=== PATIENT | male | born 2000 | race Caucasian/White ===

== ENCOUNTER 2020-07-13 14:11 | Inpatient (IN) | payer MEDICARE, MEDICAID, SELFPAY ==
[2020-07-13] VITALS (7 sets, daily range): BP systolic 93–140; BP diastolic 65–90; PULSE 82–111; RESP 18–39; TEMP 35.6–36.2; O2SAT 97–100; BMI 26.9
--- NOTE | ~2020-07-13 | XR_ITS ---
EXAMINATION: XR forearm RT 2V INDICATION: Right forearm pain TECHNIQUE: Two views of the right forearm are obtained. COMPARISON: None available FINDINGS: There is no fracture, dislocation, or subluxation. The bones, soft tissues, and joint space s are normal. IMPRESSION: 1. No acute osseous abnormality. Reviewed, dictated and finalized at location A. ER AND BAKER
--- NOTE | ~2020-07-13 | XR_ITS ---
EXAMINATION: XR chest 1V portable INDICATION: Sepsis, leukocytosis TECHNIQUE: Portable AP chest at 2124 hours COMPARISON: None available FINDINGS: The lung volumes are low. There are minimal opacities of the lung bases. The cardiomediasti nal silhouette is normal for technique. The visualized osseous structures are unremarkable. IMPRESSION: 1. Minimal opacities of the lung bases, consistent with atelectasis versus pneumonia. Reviewed, dictated and finalized at location A. ULTANT TECHNOLOGY IMPRESSION: 1. Minimal opacities of the lung bases, consistent with atelectasis versus pneu monia.
--- NOTE | ~2020-07-13 | US_ITS ---
EXAMINATION: US renal BI DATE: 07/15/2020 11:26 INDICATION: Acute kidney injury. TECHNIQUE: Multiple ultrasound grayscale images of the kidneys were obtained. COMPARISON: None. FINDINGS: The right kidney measures 12.9 x 5.9 x 5.0 cm. The left kidney measures 12.2 x 6.0 x 5.6 cm. The kidn eys demonstrate normal parenchymal echogenicity. There is no hydronephrosis. The bladder is decompres sed by a Ray catheter. There is a left pleural effusion. IMPRESSION: 1. Normal kidneys. No hydronephrosis. 2. Left pleural effusion. Reviewed, dictated and finalized at location B. INSTRUCTOR
--- NOTE | ~2020-07-13 | CT_ITS ---
EXAMINATION: CT brain wo con DATE: 07/13/2020 15:17 INDICATION: Altered mental status. TECHNIQUE: Computed tomography (CT) of the head was performed without intravenous contrast. The mA wa s adjusted according to patient size. Iterative reconstruction technique was employed. The dose-lengt h product was 1437.67 mGy-cm. COMPARISON: None FINDINGS: There is no intracranial hemorrhage, acute infarction, or abnormal intracranial mass lesion . The ventricles are normal in size. There is mild mucosal thickening in the paranasal sinuses. The o rbits are normal. The mastoid air cells are normal. IMPRESSION: 1. Normal brain. Reviewed, dictated and finalized at location B. CIRCUIT WORKER IMPRESSION: 1. Normal brain.
--- NOTE | ~2020-07-13 | XR_ITS ---
EXAMINATION: XR wrist RT min 3V INDICATION: Right wrist pain TECHNIQUE: Four views of the right wrist are obtained. COMPARISON: None available FINDINGS: Bone alignment is normal. There is a questionable osseous fragment which projects dorsal to the lunate on the lateral view. Mild wrist soft tissue swelling is noted. IMPRESSION: 1. Possible dorsal fracture of the wrist. Correlate for tenderness at this site and consider further evaluation with CT if present. Reviewed, dictated and finalized at location A. AGING INSPECTOR
--- NOTE | ~2020-07-13 | XR_ITS ---
EXAMINATION: XR chest 1V portable DATE: 07/17/2020 06:12 INDICATION: Pulmonary edema TECHNIQUE: frontal view of the chest was obtained. COMPARISON: Chest radiograph dated 07/15/2020 FINDINGS: Interval decrease in the prior increased interstitial pattern consistent with improving pulmonary symone ma. There a few residual scattered bilateral subtle patchy airspace opacities. No pleural effusion or pneumothorax. Borderline heart size accounting for AP technique. IMPRESSION: 1. Improvement in prior pulmonary edema. 2. A few residual subtle patchy bilateral airspace opacities which are more suspicious for pneumonia. Reviewed, dictated and finalized at location A. EMATICAL ENGINEERING TECHNICIAN IMPRESSION: 1. Improvement in prior pulmonary edema. 2. A few residual subtle patchy bilateral airspace opacities which are more joann picious for pneumonia.
--- NOTE | ~2020-07-13 | XR_ITS ---
EXAMINATION: XR chest 1V portable INDICATION: Hypoxia TECHNIQUE: Portable AP chest at 2153 hours COMPARISON: None available FINDINGS: Diffuse patchy bilateral airspace opacities have developed. The heart size is upper limits of normal for technique. No pleural effusion or pneumothorax is identified. IMPRESSION: 1. Diffuse patchy bilateral airspace opacities, consistent with pneumonia and/or pulmonary edema or l ess likely atelectasis. Reviewed, dictated and finalized at location A. Y PULLER IMPRESSION: 1. Diffuse patchy bilateral airspace opacities, consistent with pneumonia and/o r pulmonary edema or less likely atelectasis.
--- NOTE | 2020-07-13 14:50 | ECG_ITS ---
Measurements Intervals [place] Rate: 109 P: 4 ID: [id number] QRS: -20 QRSD: 113 T: 29 QT: 328 QTc: 442 Interpretive Statements SINUS TACHYCARDIA MINIMAL Q WAVES- LAT/HIGH LAT LEADS NONSPECIFIC ST ELEVATION IN ANTEROLAT/INF LEADS BASELINE ARTIFACT- I, II, III, V3, V5 ABNORMAL ECG Electronically Signed On 07-13-2020 15:11:52 JIG BORE OPERATOR by Gualberto Gonzalez D.O.
[2020-07-13 15:06] LABS: Hematocrit 48.9 % (42.0-52.0); Mean Corpuscular HGB Conc 32.7 g/dl (32-36); Mean Corpuscular Hemoglobin 28.7 pg (26-34); Mean Corpuscular Volume 87.8 fl (80-100); Platelet Count Result 352 k/mm3 (150-375); Red Blood Count 5.57 M/mm3 (4.6-6.20); Red Cell Distribution Width 13.1 % (11.5-14.5); White Blood Count 34.1 K/mm3 (4.5-10.0)
[2020-07-13 15:20] LABS: Acetaminophen < 10 ug/mL (10-30); Ethanol < 10 mg/dL (<10); Salicylate < 1.0 mg/dL (2-20)
--- NOTE | 2020-07-13 15:35 | PC.NURSE ---
Pt attempted to provide urine sample, unable to at this time
[2020-07-13 15:37] LABS: Band Neutrophils Percent 3 % (0-6); Monocytes Absolute Manual 3.41 K/mm3 (0.1-0.90); Monocytes Percent Manual 10 % (3-9); Neutrophils Absolute Manual 28.98 K/mm3 (1.3-6.7); Neutrophils Percent Manual 82 % (46-73); Platelet Estimate Adequate (Adequate); Total Cells Counted 100
[2020-07-13 15:39] LABS: Potassium 6.6 mmol/L (3.4-5.0)
[2020-07-13 15:40] LABS: Albumin Level 4.5 g/dL (3.5-5.1); Alkaline Phosphatase 120 U/L (38-126); Anion Gap 15 mmol/L (8-16); Bilirubin,Total 0.4 mg/dL (0.2-1.3); Blood Urea Nitrogen 21 mg/dL (9-20); Calcium 8.2 mg/dL (8.4-10.2); Carbon Dioxide 20 mmol/L (22-30); Chloride 100 mmol/L (98-107); Estimated CRCL calculation 51 ml/min; Estimated Glomerular Filt Rate 40; Glucose 244 mg/dL (75-110); Sodium 135 mmol/L (137-145)
[2020-07-13] MEDS: ONDANSETRON INJ 4 MG/2 ML VIAL IV PUSH (15:49)
[2020-07-13] MEDS: SODIUM CHLORIDE 0.9% IV 1,000 ML 999 ML IV CONT ×3 (15:49→17:29)
[2020-07-13 16:01] LABS: Glucose Point of Care 199 (65-105)
[2020-07-13 16:04] LABS: Alanine Aminotransferase 845 U/L (4-50); Aspartate Amino Transferase 995 U/L (17-59)
[2020-07-13 16:16] LABS: Creatine Kinase > 16000 U/L (55-170)
[2020-07-13] MEDS: CALCIUM GLUCONATE 1,000 MG/10 ML VIAL 1000 MG IV PUSH (16:35)
[2020-07-13] MEDS: INSULIN HUMAN REGULAR (*BKC) 100 UNITS/ML IV PUSH (16:36)
[2020-07-13] MEDS: FUROSEMIDE INJ 40 MG/4 ML VIAL 20 MG IV PUSH (16:36)
[2020-07-13] MEDS: DEXTROSE 50% 25 GM/50 ML SYRINGE IV PUSH (16:36)
--- NOTE | 2020-07-13 16:51 | PC.NURSE ---
Pt still unable to give urine sample at this time
--- NOTE | 2020-07-13 17:27 | ED.OVERDOSE ---
HPI - Overdose General Chief Complaint: Overdose Stated Complaint: possible OD Time Seen by Provider: 07/13/20 14:32 Source: patient, family and EMS Mode of arrival: EMS Limitations: altered mental status and clinical condition History of Present Illness HPI Narrative: 19-year-old male arrives per EMS Most of the history is obtained from his mom She says that he recently got his own place They could not get a hold of him this morning and went over there and found him on the floor EMS was summoned and the patient was said to have become more alert after administration of Narcan Patient variously states that he was drinking or did bars or did cocaine and fentanyl Apparently there is a significant history of alcohol use and drugs of abuse The patient complains of whole body pain and also notably says that he is having trouble hearing He has not been vomiting or having diarrhea, he does not have a cough or shortness of breath, and none of his weakness is focal MD complaint: accidental overdose Onset (ago): hour(s) Intent: other (Recreational) Related Data Allergies Allergy/AdvReac Type Severity Reaction Status Date / Time No Known Allergies Allergy Unverified 03/25/17 03:44 Review of Systems Review of Systems: ROS unobtainable: Yes unobtainable due to medical condition and unobtainable due to mental status Respiratory: Respiratory: Denies cough and Denies dyspnea Gastrointestinal: Gastrointestinal: Denies vomiting Musculoskeletal: Musculoskeletal: Reports myalgias and Reports muscle cramps Integumentary/Breasts: Skin/Breast: Reports rash Neurologic: Reports confusion and Reports weakness PMFSH Social History Social History Gender identity (if verbalized by the patient): Male Exam Const: General: well developed, awake and confusion Nutritional Appearance: well nourished HENMT: Head: normal to inspection, normocephalic and atraumatic Ears: external ears normal General nose exam: No nasal discharge present and no epistaxis Face and sinus: face symmetric Mouth: Yes dry mucous membranes Eyes: Conjunctivae: conjunctivae normal Sclera: sclerae normal EOM: EOMs intact bilaterally Neck: Neck: normal visual inspection, supple and no JVD Chest: Chest palpation & inspection: deferred Resp: Effort & Inspection: normal respiratory effort Auscultation: clear to auscultation bilaterally, no rales, no rhonchi, no wheezes and other (BS =) Cardio: Rate: regular rate and tachycardic Rhythm: regular rhythm Heart sounds: no gallops and no murmurs GI: Inspection: normal to inspection and non-distended GI Palp: Yes Soft to palpation and No Tenderness to palpation present (GI) : General: Yes no CVA tenderness Back/Spine/Pelvis: Back: no CVA tenderness Thoracic/Lumbar Spine: thoracic and lumbar spine normal to inspection Skin: General skin exam: normal color and no rashes or lesions noted Other: There are areas of superficial abrasions that look like they could almost be carpet pizano on both of his hands his anterior chest and his knees Neuro: General: moves all extremities and no focal motor deficits Cranial nerves: Yes facial symmetry Speech: normal speech Other: Possibly, decreased hearing acuity Extrem: General: full ROM Other: No edema, no deformities Generalized muscular tenderness both arms both legs Pedal pulses and wrist pulses are intact and normal Psych: Affect: normal affect Course Course Emergency Course: Treatment was initiated for hyperkalemia [place] that this would possibly be from rhabdo was borne out by very high total CK He was aggressively hydrated [place] to be unlikely that there was any infectious basis to this presentation, but he did receive an empiric dose of ceftriaxone Vital Signs Vital signs: Vital Signs Temperature 36.2 C L 07/13/20 14:14 Pulse Rate 111 H 07/13/20 14:14 Respiratory Rate 39 H 07/13/20 14:14 Blood Pressure 93/65 L 07/13/20 14:14
[2020-07-13 17:53] LABS: Hepatitis B Surface Antigen Negative (Negative)
[2020-07-13 17:59] LABS: HAV RESULT Negative (Negative); Hepatitis B Core IgM Result Negative (Negative)
[2020-07-13 18:11] LABS: Hepatitis C Virus Antibody Negative (Negative)
[2020-07-13 18:15] LABS: Lactic Acid Reflex 4.2 mmol/L (0.7-2.1)
[2020-07-13 18:25] LABS: Add Urine Microscopic? YES; Amorphous Sediment Urine Few; Appearance Urine Cloudy (Clear); Bacteria Urine Trace /hpf; Bilirubin Urine Negative (Negative); Blood Urine 3+ (Negative); Color Urine Yellow (Yellow); Glucose Urine UA 1+ mg/dL (Negative); Ketones Urine Negative (Negative); Leukocyte Esterase Ur Negative LEU/UL (Negative); Mucus Urine Few /lpf; Nitrate Urine Negative (Negative); Protein Urine 2+ mg/dL (Negative); RBC Urine 0-2 /hpf (0-2); Specific Grav Ur 1.016 (1.001-1.035); Squamous Epithelial Cell Urine Occasional /hpf (Few); Urobilinogen Urine Negative mg/dL (<2.0)
[2020-07-13 18:29] LABS: Anion Gap 6 mmol/L (8-16); Blood Urea Nitrogen 18 mg/dL (9-20); Calcium 6.3 mg/dL (8.4-10.2); Carbon Dioxide 21 mmol/L (22-30); Chloride 111 mmol/L (98-107); Estimated CRCL calculation 75 ml/min; Estimated Glomerular Filt Rate > 60; Glucose 150 mg/dL (75-110); Potassium 3.9 mmol/L (3.4-5.0); Sodium 138 mmol/L (137-145)
[2020-07-13 18:30] LABS: Amphetamine Screen Urine Negative (Negative); Barbiturate Screen Urine Negative (Negative); Benzodiazepines Screen Urine Negative (Negative); Cannabinoid Screen Urine Positive (Negative); Cocaine Screen Urine Negative (Negative); Methadone Screen Urine Negative (Negative); Opiate Screen Urine Negative (Negative); Phencyclidine Screen Urine Negative (Negative)
[2020-07-13 18:48] LABS: Creatine Kinase > 16000 U/L (55-170)
[2020-07-13 19:53] LABS: Lactic Acid Reflex 3.6 mmol/L (0.7-2.1)
[2020-07-13 20:22] LABS: Anion Gap 8 mmol/L (8-16); Blood Urea Nitrogen 22 mg/dL (9-20); Calcium 7.9 mg/dL (8.4-10.2); Carbon Dioxide 22 mmol/L (22-30); Chloride 106 mmol/L (98-107); Estimated CRCL calculation 59 ml/min; Estimated Glomerular Filt Rate 48; Glucose 148 mg/dL (75-110); Potassium 5.6 mmol/L (3.4-5.0); Sodium 136 mmol/L (137-145)
--- NOTE | 2020-07-13 20:26 | PM.IMHP ---
H&P: HPI History of Present Illness Date/Time: 07/13/20 20:26 Chief complaint: overdose, rhabdomyolysis, hyperkalemia Narrative: This is a 19 year old male with known ADHD as well as auditory disorder who presented to the hospital via EMS after his parents found him unresponsive on the floor. Apparently they could not get a hold of him today and went over to his apartment and could see him on the floor through a window. A 'random girl' who was at his place opened the door for them. The patient became more awake and alert after EMS administered Narcan to him. His parents tell me that he has a previous history of a similar episode when he took Xanax and drank alcohol last year. The patient tells me that he has right forearm pain but denies any fevers, cough, sore throat, headache, chest pain, shortness of breath, abdominal pain, diarrhea or rectal bleeding. He has been nauseated and vomiting in the ER tonight. He admitted to ER provider that he was drinking alcohol and did bars , cocaine, and fentanyl. On my encounter with the patient he simply tells me that he can't remember anything that happened to him. He currently denies any focal neurological deficits. He was evaluated in the ER tonight and routine labs demonstrated an elevated WBC of 34,100, acute renal failure w/ a creatinine of 1.8, hyperkalemia with a serum potassium of 5.6, elevated LFTs, elevated lactic acid of 3.6, and CK level >16,000. He was treated in the ER with 3 liters IV bolus of NS, IV ceftriaxone, antiemetics and startedon NS at 250 cc/hr. The patient does appear intoxicated and is clearly encephalopathic and is having a hard time answering the most basic questions. Review of Systems Review of Systems: All systems reviewed & are unremarkable except as noted in HPI and below PMFSH Past Medical History Medical History Acquired auditory processing disorder ADHD Family History Family History Other Unknown family medical history Social History Social History Smoking packs per day: 1 Smoking cigarettes per day: 20.0 Years smoked: 4 Smoking pack-years: 4.00 Smoking status: Current every day smoker Tobacco type: cigarettes Gender identity (if verbalized by the patient): Male Comments past surgical history is reviewed and noncontributory Meds Home Medications and Allergies Home Medications Medication Instructions Recorded Confirmed Type No Home Medications 07/13/20 07/13/20 History Allergies Allergy/AdvReac Type Severity Reaction Status Date / Time No Known Allergies Allergy Unverified 07/13/20 18:50 Vital Signs Vital Signs - 24 hr 07/13/20 14:14 07/13/20 15:54 07/13/20 17:50 Temperature 36.2 C L Pulse Rate 111 H 109 H Respiratory Rate 39 H 18 20 Blood Pressure 93/65 L 116/78 Pulse Oximetry 100 97 07/13/20 19:45 Temperature Pulse Rate 92 Respiratory Rate 21 H Blood Pressure 115/82 Pulse Oximetry Exam Const: General: awake, ill appearing, tired appearing and other (encephalopathic++ ) Nutritional Appearance: well nourished Orientation/consciousness: patient oriented x3 HENMT: Head: normal to inspection General nose exam: Normal external nose present Face and sinus: normal facial exam Mouth: Yes Normal oral and palatal mucosa present and Yes oropharynx normal Eyes: Pupils: Equal, round and reactive pupils present EOM: EOMs intact bilaterally Neck: Neck: supple and no JVD Thyroid: thyroid normal Lymphatic: lymphadenopathy not noted Resp: Effort & Inspection: normal respiratory effort Auscultation: clear to auscultation bilaterally Cardio: Rate: regular rate Rhythm: regular rhythm Heart sounds: no murmurs GI: Inspection: normal to inspection Auscultation: normal bowel sounds Skin: General skin exam: normal color and no r
[2020-07-13 20:57] LABS: Reflex Lactic Acid Yes or No Add Lactic
[2020-07-13 21:14] LABS: Anion Gap 4 mmol/L (8-16); Blood Urea Nitrogen 22 mg/dL (9-20); Calcium 7.9 mg/dL (8.4-10.2); Carbon Dioxide 23 mmol/L (22-30); Chloride 105 mmol/L (98-107); Estimated CRCL calculation 62 ml/min; Estimated Glomerular Filt Rate 51; Glucose 153 mg/dL (75-110); Potassium 5.8 mmol/L (3.4-5.0); Sodium 132 mmol/L (137-145)
--- NOTE | 2020-07-13 21:25 | ADMGEN ---
This patient, Zenon Crocker, was admitted to IMU Room 206-01. Patient/family oriented to hospital policies and general routines including ID bracelet, bed and alarms, visiting hours, pain management, procedures, bathroom and other care routines, personal items, smoking policy, room service/diet, and visiting hours. Information on how to activate the Rapid Response Team has been discussed. Patient/Family are encouraged to report perceived risks to care and to ask questions if they do not understand what they are told or what they should do.Ifrah RODRIGES arrive 2100
[2020-07-13] MEDS: SODIUM CHLORIDE 0.9% IV 1,000 ML 250 ML IV CONT (21:29)
[2020-07-13] MEDS: ENOXAPARIN 40 MG/0.4 ML SYRINGE SUB-Q (21:31)
[2020-07-13 22:10] LABS: Lactic Acid 1.8 mmol/L (0.7-2.1)
[2020-07-14] VITALS (21 sets, daily range): BP systolic 108–152; BP diastolic 52–101; PULSE 65–98; RESP 15–27; TEMP 35.9–37.1; O2SAT 90–99
[2020-07-14] MEDS: SODIUM CHLORIDE 0.9% IV 1,000 ML 250 ML IV CONT ×2 (01:26→06:09)
[2020-07-14 04:08] LABS: Basophils Absolute Auto 0.1 K/mm3 (0.0-0.1); Basophils Percent Auto 0.2 % (0.2-1.2); Hematocrit 44.2 % (42.0-52.0); Hemoglobin 14.9 g/dL (14.0-18.0); Immature Granulocyte Absolute 0.15 K/mm3 (0.00-0.031); Immature Granulocyte Percent A 0.6 % (0-0.5); Lymphocytes Absolute Auto 3.47 K/mm3 (0.9-3.2); Lymphocytes Percent Auto 14.1 % (18.3-44.2); Mean Corpuscular HGB Conc 33.7 g/dl (32-36); Mean Corpuscular Hemoglobin 28.8 pg (26-34); Mean Corpuscular Volume 85.5 fl (80-100); Monocytes Absolute Auto 2.5 K/mm3 (0.1-0.6); Monocytes Percent Auto 10.1 % (2.6-8.5); Neutrophils Absolute Auto 18.4 K/mm3 (1.3-6.7); Platelet Count Result 227 k/mm3 (150-375); Red Blood Count 5.17 M/mm3 (4.6-6.20); Red Cell Distribution Width 12.8 % (11.5-14.5); White Blood Count 24.6 K/mm3 (4.5-10.0)
[2020-07-14 05:01] LABS: Albumin Level 3.1 g/dL (3.5-5.1); Alkaline Phosphatase 88 U/L (38-126); Anion Gap 5 mmol/L (8-16); Bilirubin,Total 0.4 mg/dL (0.2-1.3); Blood Urea Nitrogen 20 mg/dL (9-20); Carbon Dioxide 24 mmol/L (22-30); Chloride 107 mmol/L (98-107); Estimated CRCL calculation 75 ml/min; Estimated Glomerular Filt Rate > 60; Glucose 109 mg/dL (75-110); Magnesium 1.9 mg/dL (1.6-2.3); Potassium 4.7 mmol/L (3.4-5.0); Sodium 136 mmol/L (137-145)
--- NOTE | 2020-07-14 05:43 | PCRCNOTE ---
Tried taking pt smoking cessation education informaiton. It will not print.
--- NOTE | 2020-07-14 06:31 | PC.NURSE ---
Right arm is swollen and tight. Xrays was done. Painful to touch, positive pulses, still has capillary refill, and says it tingles. Have checked it throughout the night as has Dr. Blood.
[2020-07-14] MEDS: SODIUM CHLORIDE 0.9% IV 1,000 ML 350 ML IV CONT ×4 (07:33→21:48)
[2020-07-14 08:35] LABS: Alanine Aminotransferase 1495 U/L (4-50)
[2020-07-14 08:44] LABS: Aspartate Amino Transferase 1914 U/L (17-59); Creatine Kinase > 16000 U/L (55-170)
--- NOTE | 2020-07-14 10:04 | WPDCN ---
Assessment and Plan Additional Plan Pt agrees to surgery to relieve his pain. He did not want to hear what the surgery would be. Increasing compartment syndrome right upper extremity probably due to unobserved compression during encephalopathy. PLAN: fasciotomy under general anesthesia. HPI Data of Consult Date/Time: 07/14/20 10:04 Requesting Physician: Cristian Cabrales MD Primary Care Provider: Joselito Block, Consult Narrative Narrative: Zenon Crocker is a 19 year old male with ADHD and chronic ETOh and various drug abuse admitted after parents could not reach him yesterday afternoon. He was believed to have been on the floor for an unknown period of time. He gave a very poor history in the ER. He admits to anxiety issues and frequent drug abuse including marijuana, Percocet, Fentenyl, Xanax. This morning he remains drowsy and anxious and a poor historian. He complains that his right forearm is painful and wants us to do something about it. Right UE is well perfused. Color is normal. Hand and forearm are edematous. He can flex and extend his fingers and wrist. Says sensation is good. Has severe pain with passive extension of his fingers and wrist. There has been an iv in the dorsal forearm that I asked be pulled out. Labs [place] suggestive [place]: [place] [address], WBC 24 K w/o sig left shift , elevated K. X-ray normal. FORMERLY [facility], [facility] Past Medical History Medical History Acquired auditory processing disorder ADHD Family History Family History Other Unknown family medical history Social History Social History Smoking packs per day: 1 Smoking cigarettes per day: 20.0 Years smoked: 4 Smoking pack-years: 4.00 Smoking status: Current every day smoker Tobacco type: cigarettes Gender identity (if verbalized by the patient): Male Meds Home Medications and Allergies Home Medications Medication Instructions Recorded Confirmed Type No Home Medications 07/13/20 07/13/20 History Allergies Allergy/AdvReac Type Severity Reaction Status Date / Time No Known Allergies Allergy Unverified 07/13/20 18:50 Vital Signs Vital Signs - 24 hr 07/13/20 14:14 07/13/20 15:54 07/13/20 17:50 Temperature 36.2 C L Pulse Rate 111 H 109 H Respiratory Rate 39 H 18 20 Blood Pressure 93/65 L 116/78 Pulse Oximetry 100 97 07/13/20 19:45 07/13/20 20:55 07/13/20 22:00 Temperature 35.6 C L Pulse Rate 92 91 82 Respiratory Rate 21 H 18 Blood Pressure 115/82 128/90 Pulse Oximetry 98 07/13/20 23:36 07/14/20 00:00 07/14/20 02:00 Temperature 35.8 C L Pulse Rate 89 76 77 Respiratory Rate 18 Blood Pressure 140/84 Pulse Oximetry 97 07/14/20 04:00 07/14/20 04:48 07/14/20 06:00 Temperature 35.9 C L Pulse Rate 83 83 68 Respiratory Rate 18 Blood Pressure 137/87 Pulse Oximetry 97 Results Labs CBC & Chem 7: 07/14/20 04:00 07/14/20 04:01 Labs: Short CBC 07/13/20 07/14/20 Range/Units 14:58 04:00 WBC 34.1 H 24.6 H (4.5-10.0) K/mm3 Hgb 16.0 14.9 (14.0-18.0) g/dL Hct 48.9 44.2 (42.0-52.0) % Plt Count 352 227 (150-375) k/mm3 BMP 07/13/20 07/13/20 07/13/20 14:58 18:04 19:30 Sodium 135 L 138 136 L Potassium 6.6 H* 3.9 5.6 H Chloride 100 111 H 106 Carbon Dioxide 20 L 21 L 22 BUN 21 H 18 22 H Creatinine 2.10 H 1.40 H 1.80 H Glucose 244 H 150 H 148 H Calcium 8.2 L 6.3 L 7.9 L 07/13/20 07/14/20 20:55 04:01 Sodium 132 L 136 L Potassium 5.8 H 4.7 Chloride 105 107 Carbon Dioxide 23 24 BUN 22 H 20 Creatinine 1.70 H 1.40 H Glucose 153 H 109 Calcium 7.9 L 8.0 L Cardiac Enzymes 07/13/20 07/13/20 07/14/20 Range/Units 14:58 18:04 04:01 Total Creatine Kinase > 09216 H > 26916 H > 18259 H (55
--- NOTE | 2020-07-14 10:09 | WPDANESEPPF ---
Anes - Initial Pre Proc Eval Procedure: Operation Date: 07/14/20 10:15 Proposed Procedures p Fasciectomy Right Arm - Troy Zacarias MD Date/Time: 07/14/20 10:09 Surgeon: Cristian Cabrales MD Pre Op Diagnosis: overdose, rhabdomyolysis, hyperkalemia Patient Data Age: 19 Gender: M Height: 1.75 m Weight: 82.8 kg Last Vital Signs Temp 36.2 C L 07/14/20 08:00 Pulse 73 07/14/20 10:00 Resp 20 07/14/20 08:00 BP 148/101 H 07/14/20 08:00 Pulse Ox 96 07/14/20 08:00 Allergies Allergy/AdvReac Type Severity Reaction Status Date / Time No Known Allergies Allergy Unverified 07/14/20 10:47 Home Medications Medication Instructions Recorded Confirmed Type No Home Medications 07/13/20 07/13/20 History Laboratory Tests 07/13/20 07/13/20 07/13/20 14:58 14:58 14:58 WBC 34.1 K/mm3 H K/mm3 (4.5-10.0) RBC 5.57 M/mm3 M/mm3 (4.6-6.20) Hgb 16.0 g/dL g/dL (14.0-18.0) Hct 48.9 % % (42.0-52.0) MCV 87.8 fl fl (80-100) MCH 28.7 pg pg (26-34) MCHC 32.7 g/dl g/dl (32-36) RDW 13.1 % % (11.5-14.5) Plt Count 352 k/mm3 k/mm3 (150-375) MPV 9.0 fl fl (7.4-10.4) Immature Gran % (Auto) Not Reportable Neut % (Auto) Not Reportable Lymph % (Auto) Not Reportable [place] % (Auto) Not Reportable Eos % (Auto) Not Reportable Baso % (Auto) Not Reportable Lymph # (Auto) Not Reportable [place] # (Auto) Not Reportable Eos # (Auto) Not Reportable Baso # (Auto) Not Reportable Abs Immat Gran (auto) Not Reportable Absolute Neuts (auto) Not Reportable Absolute Nucleated RBC Not Reportable Total Counted 100 Neutrophils % (Manual) 82 % H % (46-73) Band Neutrophils % 3 % % (0-6) Lymphocytes % (Manual) 5.0 % L % (18-44) Monocytes % (Manual) 10 % H % (3-9) Nucleated RBC % Not Reportable Abs Neuts (Manual) 28.98 K/mm3 H K/mm3 (1.3-6.7) Abs Lymphs (Manual) 1.70 K/mm3 K/mm3 (1.1-4.5) Abs Monocytes (Manual) 3.41 K/mm3 H K/mm3 (0.1-0.90) Platelet Estimate Adequate (Adequate) Sodium 135 mmol/L L mmol/L (137-145) Potassium 6.6 mmol/L H* mmol/L (3.4-5.0) Chloride 100 mmol/L mmol/L (98-107) Carbon Dioxide 20 mmol/L L mmol/L (22-30) Anion Gap 15 mmol/L mmol/L (8-16) BUN 21 mg/dL H mg/dL (9-20) Creatinine 2.10 mg/dL H mg/dL (0.7-1.3) Estim Creat Clear Calc 51 ml/min ml/min Estimated GFR 40 L (59 - ) Glucose 244 mg/dL H mg/dL (75-110) POC Capillary Glucose Lactic Acid Calcium 8.2 mg/dL L mg/dL (8.4-10.2) Magnesium Total Bilirubin 0.4 mg/dL mg/dL (0.2-1.3) AST 995 U/L H U/L (17-59) ALT 845 U/L H U/L (4-50) Alkaline Phosphatase 120 U/L U/L (38-126) Total Creatine Kinase > 34927 U/L H U/L (55-170) Total Protein 8.0 g/dL g/dL (6.3-8.2) Albumin 4.5 g/dL g/dL (3.5-5.1) Urine Color Urine Appearance Urine pH Ur Specific [place] Urine Protein Urine Glucose (UA) Urine Ketones Ur Blood (Man) Urine Nitrate Urine Bilirubin Urine Urobilinogen Leukocyte Esterase Rfl Urine RBC Ur Squamous Epith Cells Amorphous Sediment Urine Bacteria Hyaline Casts Urine Mucus Salicylates < 1.0 mg/dL L mg/dL (2-20) Urine Opiates Screen Urine Methadone Screen Acetaminophen < 10 ug/mL L ug/mL
[2020-07-14] MEDS: LACTATED RINGERS 1,000 ML 30 ML IV CONT ×2 (10:35→12:23)
[2020-07-14] MEDS: LIDO 1%/EPINEPHRINE 1:100,000 20 ML VIAL 5 ML INFILTRATE (11:54)
--- NOTE | 2020-07-14 13:04 | PM.IMPN ---
Progress Note: A&P Assessment and Plan (1) Acute encephalopathy: Code(s): G93.40 - Encephalopathy, unspecified Status: Acute Assessment and Plan: The patient with acute encephalopathy on admission felt likely secondary to drug intoxication. Symptoms improved. Follow (2) Rhabdomyolysis: Qualifiers: Rhabdomyolysis type: non-traumatic Qualified Code(s): M62.82 - Rhabdomyolysis Code(s): M62.82 - Rhabdomyolysis Status: Acute Assessment and Plan: TCK >16K on admission. Related to being down on the ground and from the compartment syndrome. Continue aggressive IV fluid hydration. Continue to monitor renal function and urine output. Nephrology following. (3) Compartment syndrome of forearm: Code(s): T79.A19A - Traumatic compartment syndrome of unspecified upper extremity, initial encounter Status: Acute Assessment and Plan: Likely secondary to the patient laying on his arm while unconscious. Possible wrist fracture. Patient was having tingling and weakness in the right hand so Plastic surgery evaluated the patient and he was taken to the OR for fasciotomy 07/14. Appreciate Plastic surgery input. (4) Acute kidney failure: Qualifiers: Acute renal failure type: unspecified Qualified Code(s): N17.9 - Acute kidney failure, unspecified Code(s): N17.9 - Acute kidney failure, unspecified Status: Acute Assessment and Plan: Likely secondary to acute rhabdomyolysis and dehydration. Cr better today. Nephrology following. Continue aggressive hydration. Check renal US. (5) Elevated LFTs: Code(s): R79.89 - Other specified abnormal findings of blood chemistry Status: Acute Assessment and Plan: Related to above. Possibly even shock liver. Hepatitis panel negative. Follow. Check HIV. (6) Drug overdose: Code(s): T50.901A - Poisoning by unspecified drugs, medicaments and biological substances, accidental (unintentional), initial encounter Status: Acute Assessment and Plan: Patient found down at home with improvement with narcan. UDS only positive for marijuana but still possible he overdosed on opiods. Will need to be educated about the benefits of abstaining from drug use. (7) Acute hyperkalemia: Code(s): E87.5 - Hyperkalemia Status: Acute Assessment and Plan: potassium 6.6 on admission. Likely secondary to acute renal failure. Treated appropriately. Suspect the NSVT related to hyperkalemia. Potassium normal now. Follow. Contineu tele (8) Severe sepsis: Code(s): A41.9 - Sepsis, unspecified organism; R65.20 - Severe sepsis without septic shock Status: Acute Assessment and Plan: Sepsis vs SIRS w/ tachycardia, tachypnea, elevated WBC, elevated lactic acid. There is no clear source of possible infection at this time and this may simple be due to severe dehydration and related to above. He was empirically treated with IV ceftriaxone but this has been stopped. Continue IV fluids. Monitor urine output and renal function. (9) Tobacco dependence: Code(s): F17.200 - Nicotine dependence, unspecified, uncomplicated Status: Chronic Assessment and Plan: Will discuss when patient able to comprehend information (10) ADHD: Code(s): F90.9 - Attention-deficit hyperactivity disorder, unspecified type Status: Chronic Assessment and Plan: stable. No home med listed. (11) DVT prophylaxis: Code(s): Z29.9 - Encounter for prophylactic measures, unspecified Status: Acute Assessment and Plan: Lovenox Subjective Date/time seen: 07/14/20 13:04 Interval history: Date of service 07/14 19yo male here after being found down at home. Patient became more alert after administration of Narcan. Here, he was found to be in NI with rhabdomyolysis and right forearm compartment syndrome.
[2020-07-14] MEDS: fentaNYL CITRATE INJ (*CRX) 100 MCG/2 ML VIAL 25 MCG IV PUSH (13:05)
[2020-07-14] MEDS: HYDROcodone/acetaminophen (*CRX) 5-325 MG TABLET PO ×2 (17:21→21:49)
--- NOTE | 2020-07-14 18:27 | PM.CNNEP ---
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 no need for bicarb gtt at this time follow repeat lab/electrolytes closely (2) Acute hyperkalemia: Code(s): E87.5 - Hyperkalemia Status: Acute Assessment and Plan: due to #1 correcting with medical management and IVFs follow repeat levels (3) Rhabdomyolysis: Qualifiers: Rhabdomyolysis type: non-traumatic Qualified Code(s): M62.82 - Rhabdomyolysis Code(s): M62.82 - Rhabdomyolysis Status: Acute Assessment and Plan: as noted by elevated CPK follow daily values (4) Compartment syndrome of forearm: Code(s): T79.A19A - Traumatic compartment syndrome of unspecified upper extremity, initial encounter Status: Acute Assessment and Plan: see by Dr. Bishop and being taken to OR for fasciotomy continue supportive care Will continue to follow. History of Present Illness Reason for Consult Consult date: 07/14/20 Reason for consult: acute renal failure Chief Complaint Chief complaint: overdose, rhabdomyolysis, hyperkalemia History of Present Illness Narrative: The patient is a 19 year old male with a past medical history as outlined below who presented to [facility] ER via EMS after his parents found him unresponsive on the floor. It is not entirely clear how long he was down on the floor but his parents could not get a hold of him earlier on the day of admission. They went to his apartment to check on him and can see him laying on the floor through a window. 911/EMS was called and apparently after administration of Narcan, he seemed to wake up. Reportedly, the patient has had previous episodes like this in the past with use of Xanax and alcohol in the last year. Workup and evaluation emergency room demonstrated the patient to be hemodynamically stable with routine blood tests that were significant for a significant leukocytosis, acute kidney injury with hyperkalemia, elevated liver function tests, as well as an elevated lactic acid. His CPK was greater than 16,000 as well. He was aggressively fluid resuscitated in the emergency room with almost 3 L of normal saline by bolus and then started on maintenance IV fluids and started on IV antibiotics on the concern/assumption for a possible infection after appropriate cultures were drawn. The patient appeared to be intoxicated on arrival to the ER so getting a full incomplete history of the events that led to his presentation is difficult. He was subsequent admitted to the hospital for further evaluation and therapy. Overnight, repeat blood test showed some fluctuations in his potassium level but eventually by a.m. labs his potassium had seems stable. With the aforementioned aggressive IV fluid resuscitation, his kidney function seemed to improve although his urine output was somewhat on the lower side of normal. Earlier this morning, he started having numbness and tingling in his fingers and forearm. Renal consultation was requested due to his acute kidney injury in association with hyperkalemia. As I mentioned, the assumption as to the cause of his renal dysfunction and elevated potassium level is likely due to the fact that he has severe rhabdomyolysis. As far as I am aware, he does not have a history of kidney disease or renal insufficiency as far as I am aware. Furthermore, I am unclear how well he has been eating and drinking before his presentation to the emergency room as vol
--- NOTE | 2020-07-14 18:45 | PM.OP ---
Procedure Note - Brief Procedure Note - Brief Date of procedure: 07/14/20 Pre-op diagnosis: overdose, rhabdomyolysis, hyperkalemia Post-op diagnosis: other (Compartment syndrome right upper extremity) Procedure performed: Volar and dorsal decompression fasciotomy right forearm Description of procedure: The patient was marked in the holding area for decompression of the right forearm. At that point he was still not fully coherent but expressed pain to passive extension of fingers and wrist. He was taken to the operating room and placed supine on the operating table. A time-out was held and confirmed. He was given general endotracheal anesthesia and the right upper extremity was prepped and draped in usual fashion. The markings were made for decompression along the ulnar volar forearm and over the dorsal midline of the forearm. Both aspects appeared to be tight. The tourniquet was applied but not utilized. The incision was made over the ulnar forearm in the proximal half this was approximately 5 in long. The subcutaneous tissue was divided to expose the deep fascia. The deep fascia was incised. At the distal end of the skin incision the fasciotomy was continued distally another four inches or so. At that point a 2nd smaller incision was made proximal to the wrist crease to be certain scissors were at the level of the deep fascia. A separation was made between the superficial muscles and the deep compartment was opened. Of all the areas examined that area appeared to reveal muscle under the tightest compression. The muscle appeared slightly robb compared to other muscle groups. That fascia was opened proximally and distally until it was determined that all muscle appeared to be soft and red. The dorsal midline incision was then made.This ran approximately half the length of the forearm. The muscle fascia was opened and that was also continued distally with scissors beyond the skin incision. Muscle protruded prominently through the fascial incisions but all muscle was red. No further incisions were made. It was deemed feasible to close the skin. We did that with anshul. A bulky bandage was applied. There was very little bleeding at that point but I did apply an Yasmany wrap. The patient was discharged from the operating room in stable condition following extubation Anesthesia: GRIS Surgeon: Troy Zacarias MD [facility] Coordinator: Jarocho Estimated blood loss (mL): 30 Tourniquet time (min): 0 Drains: No Packing: No Pathology: none sent Complications: No immediate complications Condition: stable Disposition: PACU
--- NOTE | 2020-07-14 19:46 | WPDPN ---
Objective Data Vital Signs Vital Signs: Vital Signs - 24 hr 07/13/20 20:55 07/13/20 22:00 07/13/20 23:36 Temperature 35.6 C L 35.8 C L Pulse Rate 91 82 89 Respiratory Rate 18 18 Blood Pressure 128/90 140/84 Pulse Oximetry 98 97 07/14/20 00:00 07/14/20 02:00 07/14/20 04:00 Temperature Pulse Rate 76 77 83 Respiratory Rate Blood Pressure Pulse Oximetry 07/14/20 04:48 07/14/20 06:00 07/14/20 08:00 Temperature 35.9 C L 36.2 C L Pulse Rate 83 68 65 Respiratory Rate 18 20 Blood Pressure 137/87 148/101 H Pulse Oximetry 97 96 07/14/20 10:00 07/14/20 10:38 07/14/20 12:23 Temperature 37.1 C 36.1 C L Pulse Rate 73 74 82 Respiratory Rate 20 15 Blood Pressure 133/96 H 108/52 L Pulse Oximetry 93 99 07/14/20 12:35 07/14/20 12:50 07/14/20 13:05 Temperature Pulse Rate 68 71 66 Respiratory Rate 15 27 H 24 H Blood Pressure 128/75 131/89 139/91 H Pulse Oximetry 99 98 94 07/14/20 13:20 07/14/20 13:35 07/14/20 13:50 Temperature Pulse Rate 68 73 80 Respiratory Rate 24 H 18 20 Blood Pressure 139/91 H 143/94 H 138/98 H Pulse Oximetry 94 93 94 07/14/20 14:29 07/14/20 16:00 07/14/20 18:00 Temperature 36.1 C L 36.4 C L 36.8 C Pulse Rate 68 96 90 Respiratory Rate 18 16 18 Blood Pressure 150/99 H 152/92 H 149/94 H Pulse Oximetry 94 96 91 Intake/Output Intake/Output: Intake & Output 07/11/20 07/12/20 07/13/20 07/14/20 23:59 23:59 23:59 23:59 Intake Total 3050 6491.5 Output Total 540 2865 Balance 2510 3626.5 Meds/Results Medications: Active Medications Generic Name Dose Route Start Last Admin Trade Name Freq PRN Reason Stop Dose Admin Hydrocodone Bitart/Acetaminophen 1 - 2 tab 07/14/20 16:05 07/14/20 17:21 Hydrocodone/Acetaminophen (*Crx) 5-325 Mg Tablet PO 2 tab Q4H PRN Administration Pain Rated 4-6 Enoxaparin Sodium 40 mg 07/13/20 21:00 07/13/20 21:31 Enoxaparin 40 Mg/0.4 Ml Syringe SUB-Q 40 mg Q24H PHUC Administration Fentanyl Citrate 25 mcg 07/14/20 10:08 07/14/20 13:05 Fentanyl Citrate Inj (*Crx) 100 Mcg/2 Ml Vial IV PUSH 25 mcg Q2M PRN Administration Pain Hydromorphone HCl 0.25 mg 07/14/20 10:08 Hydromorphone Hcl Inj (*Crx) 1 Mg/Ml Syr IV PUSH Q5M PRN Pain Sodium Chloride 1,000 mls @ 350 mls/hr 07/13/20 17:40 07/14/20 18:08 Normal Saline Iv IV CONT 350 mls/hr .Q2H52M PHUC Administration Lactated Ringer's 1,000 mls @ 30 mls/hr 07/14/20 10:10 07/14/20 12:33 Lr - Lactated Ringers Iv IV CONT Infused .Q24H PHUC Infusion Lactated Ringer's 1,000 mls @ 30 mls/hr 07/14/20 10:10 07/14/20 14:01 Lr - Lactated Ringers Iv IV CONT Infused .Q24H PHUC Infusion Ondansetron HCl 4 mg 07/13/20 17:39 Ondansetron Inj 4 Mg/2 Ml Vial IV PUSH Q4H PRN Nausea Ondansetron HCl 4 mg 07/14/20 10:08 Ondansetron Inj 4 Mg/2 Ml Vial IV PUSH ONCE PRN Nausea Radiology Results: ITS Impressions Head CT 07/13/20 15:23 IMPRESSION: 1. Normal brain. Chest X-Ray 07/13/20 21:34 IMPRESSION: 1. Minimal opacities of the lung bases, consistent with atelectasis versus pneumonia. Forearm X-Ray 07/13/20 21:39 IMPRESSION: 1. No acute osseous abnormality. Wrist X-Ray 07/13/20 21:44 IMPRESSION: 1. Possible dorsal fracture of the wrist. Correlate for tenderness at this site and consider further evaluation with CT if present. Labs Labs: Laboratory Results - last 24 hr 07/13/20 07/13/20 07/13/20 19:30 19:30 20:55 WBC RBC Hgb Hct MCV MCH MCHC RDW Plt Count MPV Immature Gran % (Auto) Neut % (Auto) Lymph % (Auto) [place] % (Auto) Eos % (Auto) Baso % (Auto) Lymph # (Auto) [place] # (Auto) Eos # (Auto) Baso # (Auto) Abs Immat Gran (auto) Absolute Neuts (auto) Absolute Nucleated RBC Nucleated RBC % Sodium 136 L 132 L Potassium 5.6 H 5.8 H Chloride
[2020-07-14] MEDS: ENOXAPARIN 40 MG/0.4 ML SYRINGE SUB-Q (21:49)
[2020-07-15] VITALS (12 sets, daily range): BP systolic 117–147; BP diastolic 76–101; PULSE 68–100; RESP 15–24; TEMP 35.7–37.2; O2SAT 88–96
[2020-07-15] MEDS: SODIUM CHLORIDE 0.9% IV 1,000 ML 350 ML IV CONT ×2 (00:41→03:38)
[2020-07-15] MEDS: HYDROcodone/acetaminophen (*CRX) 5-325 MG TABLET PO ×2 (03:39→08:50)
[2020-07-15 05:02] LABS: Basophils Percent Auto 0.2 % (0.2-1.2); Eosinophils Absolute Auto 0.1 K/mm3 (0-0.3); Eosinophils Percent Auto 0.4 % (0-4.4); Hematocrit 38.6 % (42.0-52.0); Immature Granulocyte Absolute 0.12 K/mm3 (0.00-0.031); Immature Granulocyte Percent A 0.7 % (0-0.5); Lymphocytes Absolute Auto 1.74 K/mm3 (0.9-3.2); Lymphocytes Percent Auto 10.6 % (18.3-44.2); Mean Corpuscular HGB Conc 33.7 g/dl (32-36); Mean Corpuscular Hemoglobin 28.3 pg (26-34); Mean Corpuscular Volume 84.1 fl (80-100); Mean Platelet Volume 9.5 fl (7.4-10.4); Monocytes Percent Auto 12.1 % (2.6-8.5); Neutrophils Absolute Auto 12.5 K/mm3 (1.3-6.7); Platelet Count Result 194 k/mm3 (150-375); Red Blood Count 4.59 M/mm3 (4.6-6.20); Red Cell Distribution Width 12.6 % (11.5-14.5); White Blood Count 16.4 K/mm3 (4.5-10.0)
[2020-07-15 05:39] LABS: Albumin Level 2.7 g/dL (3.5-5.1); Alkaline Phosphatase 82 U/L (38-126); Anion Gap 1 mmol/L (8-16); Bilirubin,Total 0.6 mg/dL (0.2-1.3); Blood Urea Nitrogen 9 mg/dL (9-20); Calcium 7.6 mg/dL (8.4-10.2); Carbon Dioxide 27 mmol/L (22-30); Chloride 109 mmol/L (98-107); Estimated CRCL calculation 162 ml/min; Estimated Glomerular Filt Rate > 60; Glucose 87 mg/dL (75-110); Magnesium 1.8 mg/dL (1.6-2.3); Phosphorus 1.7 mg/dL (2.5-4.5); Potassium 3.8 mmol/L (3.4-5.0); Sodium 137 mmol/L (137-145)
[2020-07-15 05:54] LABS: Alanine Aminotransferase 999 U/L (4-50); Aspartate Amino Transferase 841 U/L (17-59)
[2020-07-15 05:55] LABS: HIV 1/2 Ab P24 Ag Result Negative (Negative)
[2020-07-15 06:12] LABS: Creatine Kinase 14289 U/L (55-170)
--- NOTE | 2020-07-15 07:27 | WPDANESPN ---
Anes - Prog Note Post-Op Date/Time: 07/15/20 07:27 Cardiovascular status: normal Respiratory status: normal Airway patency: baseline Mental status: baseline Post-Op hydration status: normal Vital Signs: Last Vital Signs Temp 36.0 C L 07/15/20 04:00 Pulse 86 07/15/20 06:00 Resp 20 07/15/20 04:00 BP 143/91 H 07/15/20 06:20 Pulse Ox 92 07/15/20 04:00 Pain Score (VAS): 0 I/O: Intake & Output 07/14/20 07/14/20 07/15/20 15:59 23:59 07:59 Intake Total 1691.5 3616 3000 Output Total 1100 3225 1580 Balance 591.5 391 1420 Laboratory Tests 07/15/20 04:30 07/15/20 04:30 07/14/20 07/15/20 07/15/20 04:01 04:30 04:30 WBC 16.4 H RBC 4.59 L Hgb 13.0 L Hct 38.6 L MCV 84.1 MCH 28.3 MCHC 33.7 RDW 12.6 Plt Count 194 MPV 9.5 Immature Gran % (Auto) 0.7 H Neut % (Auto) 76.0 H Lymph % (Auto) 10.6 L [place] % (Auto) 12.1 H Eos % (Auto) 0.4 Baso % (Auto) 0.2 Lymph # (Auto) 1.74 [place] # (Auto) 2.0 H Eos # (Auto) 0.1 Baso # (Auto) 0.0 Abs Immat Gran (auto) 0.12 H Absolute Neuts (auto) 12.5 H Absolute Nucleated RBC 0.0 Nucleated RBC % 0.0 Sodium 137 Potassium 3.8 Chloride 109 H Carbon Dioxide 27 Anion Gap 1 L BUN 9 D Creatinine 0.70 Estim Creat Clear Calc 162 Estimated GFR > 60 Glucose 87 Calcium 7.6 L Phosphorus 1.7 L Magnesium 1.8 Total Bilirubin 0.6 AST 1914 H 841 H ALT 1495 H 999 H Alkaline Phosphatase 82 Total Creatine Kinase > 69058 H 88708 H Total Protein 5.0 L Albumin 2.7 L HIV 1&2 Ab/P24 Ag 4thGn 07/15/20 04:30 WBC RBC Hgb Hct MCV MCH MCHC RDW Plt Count MPV Immature Gran % (Auto) Neut % (Auto) Lymph % (Auto) [place] % (Auto) Eos % (Auto) Baso % (Auto) Lymph # (Auto) [place] # (Auto) Eos # (Auto) Baso # (Auto) Abs Immat Gran (auto) Absolute Neuts (auto) Absolute Nucleated RBC Nucleated RBC % Sodium Potassium Chloride Carbon Dioxide Anion Gap BUN Creatinine Estim Creat Clear Calc Estimated GFR Glucose Calcium Phosphorus Magnesium Total Bilirubin AST ALT Alkaline Phosphatase Total Creatine Kinase Total Protein Albumin HIV 1&2 Ab/P24 Ag 4thGn Negative Microbiology 07/13/20 17:46 Blood Blood Culture - Preliminary 07/13/20 18:04 Blood Blood Culture - Preliminary Post-procedural complaints: none Patient Feedback: Patient satisfied with anesthetic care.
--- NOTE | 2020-07-15 07:39 | WPDPN ---
Progress Note: A&P Assessment and Plan (1) Compartment syndrome of forearm: Code(s): T79.A19A - Traumatic compartment syndrome of unspecified upper extremity, initial encounter Status: Acute Assessment and Plan: Right forearm symptomatically improved. Motor function appears satisfactory. Needs continued elevation and will probably need PT. Exam Narrative: Exam Narrative: R UE remains edematous. Pt follows commands to flex and extend wrist and digits. Effort is questionable. Did not express significant pain. Did not ask for more analgesic. WBC and LFT's showing downward trend. Creat. normal. Objective Data Vital Signs Vital Signs: Vital Signs - 24 hr 07/14/20 08:00 07/14/20 10:00 07/14/20 10:38 Temperature 36.2 C L 37.1 C Pulse Rate 65 73 74 Respiratory Rate 20 20 Blood Pressure 148/101 H 133/96 H Pulse Oximetry 96 93 07/14/20 12:23 07/14/20 12:35 07/14/20 12:50 Temperature 36.1 C L Pulse Rate 82 68 71 Respiratory Rate 15 15 27 H Blood Pressure 108/52 L 128/75 131/89 Pulse Oximetry 99 99 98 07/14/20 13:05 07/14/20 13:20 07/14/20 13:35 Temperature Pulse Rate 66 68 73 Respiratory Rate 24 H 24 H 18 Blood Pressure 139/91 H 139/91 H 143/94 H Pulse Oximetry 94 94 93 07/14/20 13:50 07/14/20 14:29 07/14/20 16:00 Temperature 36.1 C L 36.4 C L Pulse Rate 80 68 96 Respiratory Rate 20 18 16 Blood Pressure 138/98 H 150/99 H 152/92 H Pulse Oximetry 94 94 96 07/14/20 18:00 07/14/20 20:00 07/14/20 22:00 Temperature 36.8 C 36.3 C L Pulse Rate 90 82 98 Respiratory Rate 18 18 Blood Pressure 149/94 H 139/87 Pulse Oximetry 91 90 07/14/20 23:34 07/15/20 00:00 07/15/20 02:00 Temperature 36.4 C L Pulse Rate 94 89 86 Respiratory Rate 18 18 Blood Pressure 140/81 Pulse Oximetry 91 91 07/15/20 04:00 07/15/20 06:00 12/10/20 06:20 Temperature 36.0 C L Pulse Rate 68 86 Respiratory Rate 20 Blood Pressure 147/101 H 143/91 H Pulse Oximetry 92 Intake/Output Intake/Output: Intake & Output 07/12/20 07/13/20 07/14/20 07/15/20 23:59 23:59 23:59 23:59 Intake Total 3050 8307.5 3000 Output Total 540 4865 1580 Balance 2510 3442.5 1420 Meds/Results Medications: Active Medications Generic Name Dose Route Start Last Admin Trade Name Freq PRN Reason Stop Dose Admin Hydrocodone Bitart/Acetaminophen 1 - 2 tab 07/14/20 16:05 07/15/20 03:39 Hydrocodone/Acetaminophen (*Crx) 5-325 Mg Tablet PO 2 tab Q4H PRN Administration Pain Rated 4-6 Enoxaparin Sodium 40 mg 07/13/20 21:00 07/14/20 21:49 Enoxaparin 40 Mg/0.4 Ml Syringe SUB-Q 40 mg Q24H PHUC Administration Fentanyl Citrate 25 mcg 07/14/20 10:08 07/14/20 13:05 Fentanyl Citrate Inj (*Crx) 100 Mcg/2 Ml Vial IV PUSH 25 mcg Q2M PRN Administration Pain Hydromorphone HCl 0.25 mg 07/14/20 10:08 Hydromorphone Hcl Inj (*Crx) 1 Mg/Ml Syr IV PUSH Q5M PRN Pain Sodium Chloride 1,000 mls @ 200 mls/hr 07/13/20 17:40 07/15/20 03:38 Normal Saline Iv IV CONT 350 mls/hr .Q5H PHUC Administration Ondansetron HCl 4 mg 07/13/20 17:39 Ondansetron Inj 4 Mg/2 Ml Vial IV PUSH Q4H PRN Nausea Radiology Results: ITS Impressions Head CT 07/13/20 15:23 IMPRESSION: 1. Normal brain. Chest X-Ray 07/13/20 21:34 IMPRESSION: 1. Minimal opacities of the lung bases, consistent with atelectasis versus pneumonia. Forearm X-Ray 07/13/20 21:39 IMPRESSION: 1. No acute osseous abnormality. Wrist X-Ray 07/13/20 21:44 IMPRESSION: 1. Possible dorsal fracture of the wrist. Correlate for tenderness at this site and consider further evaluation with CT if present. Labs Labs: Laboratory Results - last 24 hr 07/14/20 07/15/20 07/15/20 04:01 04:30 04:30 WBC 16.4 H RBC 4.59 L Hgb 13.0 L Hct 38.6 L MCV 84.1 MCH 28.3 MCHC 33.7 RDW 12.6 Plt Count 194 MPV 9.5 Immature Gran % (Au
[2020-07-15] MEDS: SODIUM CHLORIDE 0.9% IV 1,000 ML 200 ML IV CONT ×4 (07:59→23:25)
[2020-07-15] MEDS: POTASSIUM PHOS,M-BASIC-D-BASIC 20 MMOL in SODIUM CHLORIDE 0.9% IV 250 ML 62.5 MMOL IVPB (08:51)
--- NOTE | 2020-07-15 09:16 | PM.IMPN ---
Progress Note: A&P Assessment and Plan (1) Acute encephalopathy: Code(s): G93.40 - Encephalopathy, unspecified Status: Acute Assessment and Plan: The patient with acute encephalopathy on admission felt likely secondary to drug intoxication. Symptoms have improved. He does have an underlying auditory processing disorder. Follow (2) Rhabdomyolysis: Qualifiers: Rhabdomyolysis type: non-traumatic Qualified Code(s): M62.82 - Rhabdomyolysis Code(s): M62.82 - Rhabdomyolysis Status: Acute Assessment and Plan: TCK >16K on admission. Related to being down on the ground and from the compartment syndrome. TCK down to 14.3K. Continue aggressive IV fluid hydration. Continue to monitor renal function and urine output. Nephrology following. (3) Compartment syndrome of forearm: Code(s): T79.A19A - Traumatic compartment syndrome of unspecified upper extremity, initial encounter Status: Acute Assessment and Plan: Likely secondary to the patient laying on his arm while unconscious. Possible wrist fracture. Patient was having tingling and weakness in the right hand so Plastic surgery evaluated the patient and he was taken to the OR for fasciotomy 07/14. Neurologic exam slowly improving but unclear if there is any prison damage. Appreciate Plastic surgery input. (4) Acute kidney failure: Qualifiers: Acute renal failure type: unspecified Qualified Code(s): N17.9 - Acute kidney failure, unspecified Code(s): N17.9 - Acute kidney failure, unspecified Status: Acute Assessment and Plan: Likely secondary to acute rhabdomyolysis and dehydration. Cr normal today. Renal US pending. Nephrology following. Continue aggressive hydration. (5) Elevated LFTs: Code(s): R79.89 - Other specified abnormal findings of blood chemistry Status: Acute Assessment and Plan: Related to above. Possibly even shock liver. Hepatitis panel and HIV negative. AST/ALT trending down. Follow. (6) Drug overdose: Code(s): T50.901A - Poisoning by unspecified drugs, medicaments and biological substances, accidental (unintentional), initial encounter Status: Acute Assessment and Plan: Patient found down at home with improvement with narcan. UDS only positive for marijuana but still possible he overdosed on opiods. Educated about the benefits of abstaining from drug use. (7) Acute hyperkalemia: Code(s): E87.5 - Hyperkalemia Status: Acute Assessment and Plan: Potassium 6.6 on admission. Likely secondary to acute renal failure. Treated appropriately and repeat potassium normal. Suspect the NSVT on 07/14 related to hyperkalemia. Tele remains normal. Follow. Okay to stop tele. (8) Severe sepsis: Code(s): A41.9 - Sepsis, unspecified organism; R65.20 - Severe sepsis without septic shock Status: Acute Assessment and Plan: Sepsis vs SIRS w/ tachycardia, tachypnea, elevated WBC, elevated lactic acid. There is no clear source of possible infection at this time and this may simple be due to severe dehydration and related to above. He was empirically treated with IV ceftriaxone but this has been stopped. Continue IV fluids. Monitor urine output and renal function. (9) Tobacco dependence: Code(s): F17.200 - Nicotine dependence, unspecified, uncomplicated Status: Chronic Assessment and Plan: Patient has been educated about benefits of smoking cessation (10) ADHD: Code(s): F90.9 - Attention-deficit hyperactivity disorder, unspecified type Status: Chronic Assessment and Plan: stable. No home med listed. (11) DVT prophylaxis: Code(s): Z29.9 - Encounter for prophylactic measures, unspecified Status: Acute Assessment and Plan: Lovenox Subjective Date/time seen: 07/15/20 09:16 Interval history: Date of
[2020-07-15] MEDS: polyethylene glycoL 3350 17 GM POWD.PACK PO (11:36)
[2020-07-15] MEDS: oxyCODONE HCL (*CRX) 5 MG TAB IR 10 MG PO ×3 (11:36→19:58)
[2020-07-15] MEDS: ONDANSETRON INJ 4 MG/2 ML VIAL IV PUSH (12:45)
--- NOTE | 2020-07-15 15:20 | PM.PNNEP ---
Progress Note: A&P Assessment and Plan (1) Acute kidney failure: Qualifiers: Acute renal failure type: unspecified Qualified Code(s): N17.9 - Acute kidney failure, unspecified Code(s): N17.9 - Acute kidney failure, unspecified Status: Acute Assessment and Plan: appears to be resolving (if not resolved) most likely secondary to rhabdomyolysis +/- prerenal factors CPK coming down good urine output noted follow repeat lab/electrolytes closely (2) Acute hyperkalemia: Code(s): E87.5 - Hyperkalemia Status: Acute Assessment and Plan: due to #1 correcting with medical management and IVFs follow repeat levels (3) Rhabdomyolysis: Qualifiers: Rhabdomyolysis type: non-traumatic Qualified Code(s): M62.82 - Rhabdomyolysis Code(s): M62.82 - Rhabdomyolysis Status: Acute Assessment and Plan: as noted by elevated CPK follow daily values (4) Compartment syndrome of forearm: Code(s): T79.A19A - Traumatic compartment syndrome of unspecified upper extremity, initial encounter Status: Acute Assessment and Plan: see by Dr. Bishop and s/p fasciotomy continue supportive care Will continue to follow. Subjective Date/time seen: 07/15/20 15:20 Mentation seems to be doing somewhat better; some pain issues from recent surgical procedure; no distress overnight or earlier this AM. Exam Narrative: Exam Narrative: General: WD/WN male in NAD Heart: normal S1 and S2; no rub Lungs: clear to auscultation Abdomen: soft, nontender, nondistended, positive bowel sounds Extremities: no cyanosis or clubbing; no edema Skin: warm and dry Objective Data Vital Signs Vital Signs: Vital Signs Temp Pulse Resp BP Pulse Ox 07/15/20 11:45 36.4 C L 90 18 139/88 94 07/15/20 10:00 87 07/15/20 08:00 35.7 C L 78 24 H 117/76 96 07/15/20 06:20 143/91 H 07/15/20 06:00 86 07/15/20 04:00 36.0 C L 68 20 147/101 H 92 07/15/20 02:00 86 07/15/20 00:00 89 18 91 07/14/20 23:34 36.4 C L 94 18 140/81 91 07/14/20 22:00 98 07/14/20 20:00 36.3 C L 82 18 139/87 90 Intake/Output Intake/Output: Intake & Output 07/12/20 07/13/20 07/14/20 07/15/20 23:59 23:59 23:59 23:59 Intake Total 3050 8307.5 7886.6667 Output Total 540 4865 7255 Balance 2510 3442.5 631.6667 Meds/Results Medications: Active Medications Generic Name Dose Route Start Last Admin Trade Name Freq PRN Reason Stop Dose Admin Enoxaparin Sodium 40 mg 07/13/20 21:00 07/14/20 21:49 Enoxaparin 40 Mg/0.4 Ml Syringe SUB-Q 40 mg Q24H PHUC Administration Sodium Chloride 1,000 mls @ 200 mls/hr 07/13/20 17:40 07/15/20 17:59 Normal Saline Iv IV CONT 200 mls/hr .Q5H PHUC Administration Ondansetron HCl 4 mg 07/13/20 17:39 07/15/20 12:45 Ondansetron Inj 4 Mg/2 Ml Vial IV PUSH 4 mg Q4H PRN Administration Nausea Oxycodone HCl 10 mg 07/15/20 09:34 07/15/20 15:38 Oxycodone Hcl (*Crx) 5 Mg Tab Ir PO 10 mg Q4H PRN Administration Pain Rated 6 or Greater Oxycodone HCl 5 mg 07/15/20 09:34 Oxycodone Hcl (*Crx) 5 Mg Tab Ir PO Q4H PRN Pain Rated 5 or Less Polyethylene Glycol 17 gm 07/15/20 11:20 07/15/20 11:36 Polyethylene Glycol 3350 17 Gm Powd.Pack PO 17 gm QAM PHUC Administration Radiology Results: ITS Impressions Head CT 07/13/20 15:23 IMPRESSION: 1. Normal brain. Chest X-Ray 07/13/20 21:34 IMPRESSION: 1. Minimal opacities of the lung bases, consistent with atelectasis versus pneumonia. Forearm X-Ray 07/13/20 21:39 IMPRESSION: 1. No acute osseous abnormality. Wrist X-Ray 07/13/20 21:44 IMPRESSION: 1. Possible dorsal fracture of the wrist. Correlate for tenderness at this site and consider further evaluation with CT if present. Renal Ultrasound 07/15/20 11:38 IMPRESSION: 1. Normal kidneys. No hydro
--- NOTE | 2020-07-15 19:06 | PC.NURSE ---
This patient, Zenon Crocker, was transferred to [facility] on 07/15/20 at 1906. Personal belongings sent with patient. Report given to ZAHIRA Morrell. Appropriate documentation sent with patient.
--- NOTE | 2020-07-15 19:51 | ADMGEN ---
This patient, Zenon Crocker, was admitted to 2 Medical Room 242-. Patient/family oriented to hospital policies and general routines including ID bracelet, bed and alarms, visiting hours, pain management, procedures, bathroom and other care routines, personal items, smoking policy, room service/diet, and visiting hours. Information on how to activate the Rapid Response Team has been discussed. Patient/Family are encouraged to report perceived risks to care and to ask questions if they do not understand what they are told or what they should do.
[2020-07-15] MEDS: ENOXAPARIN 40 MG/0.4 ML SYRINGE SUB-Q (21:16)
[2020-07-15 22:05] LABS: Alveolar/Arterial O2 Gradient 133.7 mmHg; Base Excess ABG -0.9 mEq/l (+/-2.0); Carboxyhemoglobin 0.1 % THb (0-2.0); Fractional Inspired Oxygen 32 %; HCO3 ABG 22.7 mEq/l (22.0-26.0); Methemoglobin ABG 0.5 %THb (0-1.5); Oxygen Content ABG 18.6 %vol (16.0-22.0); Oxygen Saturation ABG 89.1 % (95.0-100.0); Oxyhemoglobin 89.5 % THb (90.0-100.0); PCO2 ABG 34.8 mmHg (35.0-45.0); PO2 ABG 53.7 mmHg (80.0-100.0); PO2 FiO2 Ratio Arterial Blood 1.68 %; Reduced Hemoglobin 9.9 %THb (0-5.0); Total Hemoglobin 14.8 g/dL (12.0-18.0); pH ABG 7.432 (7.350-7.450)
[2020-07-15 22:06] LABS: Device NASAL CANNULA; Modified Allen's Test Pass; Site Drawn LEFT RADIAL
[2020-07-16] VITALS (8 sets, daily range): BP systolic 140–150; BP diastolic 76–92; PULSE 71–85; RESP 16–20; TEMP 36.6–37.1; O2SAT 95–99
[2020-07-16 00:10] LABS: Basophils Percent Auto 0.3 % (0.2-1.2); Eosinophils Absolute Auto 0.1 K/mm3 (0-0.3); Eosinophils Percent Auto 0.9 % (0-4.4); Hematocrit 40.8 % (42.0-52.0); Hemoglobin 13.7 g/dL (14.0-18.0); Immature Granulocyte Absolute 0.04 K/mm3 (0.00-0.031); Immature Granulocyte Percent A 0.3 % (0-0.5); Lymphocytes Absolute Auto 2.49 K/mm3 (0.9-3.2); Mean Corpuscular HGB Conc 33.6 g/dl (32-36); Mean Corpuscular Hemoglobin 28.5 pg (26-34); Mean Corpuscular Volume 84.8 fl (80-100); Mean Platelet Volume 9.2 fl (7.4-10.4); Monocytes Absolute Auto 1.5 K/mm3 (0.1-0.6); Monocytes Percent Auto 10.7 % (2.6-8.5); Neutrophils Absolute Auto 9.7 K/mm3 (1.3-6.7); Neutrophils Percent Auto 69.8 % (45.5-73.1); Platelet Count Result 201 k/mm3 (150-375); Red Blood Count 4.81 M/mm3 (4.6-6.20); Red Cell Distribution Width 12.6 % (11.5-14.5); White Blood Count 13.8 K/mm3 (4.5-10.0)
[2020-07-16 00:22] LABS: NT Pro B Type Natriuretic Pept 8140 PG/ML (5-100)
[2020-07-16 00:37] LABS: Anion Gap 1 mmol/L (8-16); Blood Urea Nitrogen 7 mg/dL (9-20); Calcium 7.8 mg/dL (8.4-10.2); Carbon Dioxide 27 mmol/L (22-30); Chloride 107 mmol/L (98-107); Estimated CRCL calculation 162 ml/min; Estimated Glomerular Filt Rate > 60; Glucose 86 mg/dL (75-110); Potassium 3.8 mmol/L (3.4-5.0); Sodium 135 mmol/L (137-145)
[2020-07-16 01:02] LABS: CRP 8.7 mg/dL (<1.0)
[2020-07-16 01:37] LABS: Creatine Kinase 7703 U/L (55-170)
[2020-07-16] MEDS: oxyCODONE HCL (*CRX) 5 MG TAB IR PO ×3 (02:26→20:26)
--- NOTE | 2020-07-16 02:43 | PC.NURSE ---
Patient complained of chest pressure and some difficulty breathing. Checked vitals they were blood pressure of 150/78, oxygen of 96, respirations of 18, and heart rate of 79. I called Dr. [place] he said he is not concerned at this time and did not add any new orders. Will monitor closely.
[2020-07-16 05:43] LABS: Hemoglobin 13.9 g/dL (14.0-18.0); Mean Corpuscular HGB Conc 33.9 g/dl (32-36); Mean Corpuscular Hemoglobin 28.8 pg (26-34); Mean Corpuscular Volume 84.9 fl (80-100); Mean Platelet Volume 9.6 fl (7.4-10.4); Platelet Count Result 208 k/mm3 (150-375); Red Blood Count 4.83 M/mm3 (4.6-6.20); Red Cell Distribution Width 12.4 % (11.5-14.5); White Blood Count 13.2 K/mm3 (4.5-10.0)
[2020-07-16 05:57] LABS: Albumin Level 2.8 g/dL (3.5-5.1); Alkaline Phosphatase 88 U/L (38-126); Anion Gap 2 mmol/L (8-16); Aspartate Amino Transferase 489 U/L (17-59); Bilirubin,Total 0.8 mg/dL (0.2-1.3); Blood Urea Nitrogen 7 mg/dL (9-20); Calcium 8.1 mg/dL (8.4-10.2); Carbon Dioxide 27 mmol/L (22-30); Chloride 106 mmol/L (98-107); Estimated CRCL calculation 144 ml/min; Estimated Glomerular Filt Rate > 60; Glucose 91 mg/dL (75-110); Phosphorus 2.4 mg/dL (2.5-4.5); Potassium 3.9 mmol/L (3.4-5.0); Sodium 135 mmol/L (137-145)
[2020-07-16 06:18] LABS: Creatine Kinase 5493 U/L (55-170)
[2020-07-16 06:21] LABS: Alanine Aminotransferase 826 U/L (4-50)
--- NOTE | 2020-07-16 07:35 | WPDPN ---
Progress Note: A&P Additional Plan Overall improvement. Needs therapy and resting splint. Will reevaluate mid day today. May need to return to surgery to look again at forearm muscle and consider wrist or intrinsic releases. Exam Narrative: Exam Narrative: WBC remains normal. All LFT's falling. Has been evaluated by Dr. Chapin who reports resolving rhabdomyolysis. Skin wounds are healing. Edema in UE is diminished, but hand remains in intrinsic-plus at rest. Pt remains lethargic in his demeanor and effort level remains questionable. Active ROM is reduced from opposite side. Able to actively flex and extend digits. Able to actively extend wrist. Not able to extend both at same time. Reports pain at wrist with these efforts where he has some skin redness that persists. Color good. Dos not report pain in the forearm with passive flexion or extension of wrist. Objective Data Vital Signs Vital Signs: Vital Signs - 24 hr 07/15/20 08:00 07/15/20 10:00 07/15/20 11:45 Temperature 35.7 C L 36.4 C L Pulse Rate 78 87 90 Respiratory Rate 24 H 18 Blood Pressure 117/76 139/88 Pulse Oximetry 96 94 07/15/20 16:00 07/15/20 20:00 07/15/20 21:41 Temperature 36.1 C L 37.2 C Pulse Rate 86 100 Respiratory Rate 15 20 Blood Pressure 142/96 H 139/79 Pulse Oximetry 95 95 88 L 07/15/20 22:00 07/16/20 00:00 07/16/20 02:50 Temperature 36.9 C Pulse Rate 80 79 Respiratory Rate 20 18 Blood Pressure 143/92 H 150/78 H Pulse Oximetry 90 95 96 07/16/20 04:00 Temperature 36.6 C Pulse Rate 80 Respiratory Rate 20 Blood Pressure 142/85 H Pulse Oximetry 97 Intake/Output Intake/Output: Intake & Output 07/13/20 07/14/20 07/15/20 07/16/20 23:59 23:59 23:59 23:59 Intake Total 3050 8307.5 8886.6667 1000 Output Total 430 4865 7255 3500 Balance 2510 3442.5 1631.6586 -2500 Meds/Results Medications: Active Medications Generic Name Dose Route Start Last Admin Trade Name Freq PRN Reason Stop Dose Admin Enoxaparin Sodium 40 mg 07/13/20 21:00 07/15/20 21:16 Enoxaparin 40 Mg/0.4 Ml Syringe SUB-Q 40 mg Q24H PHUC Administration Ondansetron HCl 4 mg 07/13/20 17:39 07/15/20 12:45 Ondansetron Inj 4 Mg/2 Ml Vial IV PUSH 4 mg Q4H PRN Administration Nausea Oxycodone HCl 10 mg 07/15/20 09:34 07/15/20 19:58 Oxycodone Hcl (*Crx) 5 Mg Tab Ir PO 10 mg Q4H PRN Administration Pain Rated 6 or Greater Oxycodone HCl 5 mg 07/15/20 09:34 07/16/20 02:26 Oxycodone Hcl (*Crx) 5 Mg Tab Ir PO 5 mg Q4H PRN Administration Pain Rated 5 or Less Polyethylene Glycol 17 gm 07/15/20 11:20 07/15/20 11:36 Polyethylene Glycol 3350 17 Gm Powd.Pack PO 17 gm QAM PHUC Administration Radiology Results: ITS Impressions Head CT 07/13/20 15:23 IMPRESSION: 1. Normal brain. Forearm X-Ray 07/13/20 21:39 IMPRESSION: 1. No acute osseous abnormality. Wrist X-Ray 07/13/20 21:44 IMPRESSION: 1. Possible dorsal fracture of the wrist. Correlate for tenderness at this site and consider further evaluation with CT if present. Renal Ultrasound 07/15/20 11:38 IMPRESSION: 1. Normal kidneys. No hydronephrosis. 2. Left pleural effusion. Chest X-Ray 07/15/20 21:58 IMPRESSION: 1. Diffuse patchy bilateral airspace opacities, consistent with pneumonia and/or pulmonary edema or less likely atelectasis. Labs Labs: Laboratory Results - last 24 hr 07/15/20 07/15/20 07/15/20 21:59 23:50 23:54 WBC 13.8 H RBC 4.81 Hgb 13.7 L Hct 40.8 L MCV 84.8 MCH 28.5 MCHC 33.6 RDW 12.6 Plt Count 201 MPV 9.2 Immature Gran % (Auto) 0.3 Neut % (Auto) 69.8 Lymph % (Auto) 18.0 L Rooks % (Auto) 10.7 H Eos % (Auto) 0.9 Baso % (Auto) 0.3 Lymph # (Auto) 2.49 Rooks # (Auto) 1.5 H Eos # (Auto) 0.1 Baso # (Auto) 0.0 Abs Immat Gran (auto) 0.04 H Absolute Neuts (auto) 9.7 H Absolute Nucleated RBC
[2020-07-16] MEDS: oxyCODONE HCL (*CRX) 5 MG TAB IR 10 MG PO (08:40)
[2020-07-16] MEDS: polyethylene glycoL 3350 17 GM POWD.PACK PO (08:45)
--- NOTE | 2020-07-16 12:21 | WPDPN ---
Progress Note: A&P Additional Plan Needs elevation and OT to try to reduce edema. Will feed today and reevaluate tomorrow Has some reduced motor function in the digital extensors. May be due to edema or ischemia. Exam Narrative: Exam Narrative: R UE is not dependent when I walked in. Skin color normal. Slight serous drainage. No erythema except at pink radial wrist marking. Not tender there. Tries to follow ROM directions. Still unable to extend wrist and fingers at the same time. Able to adduct and abduct digits. Not tender to compression in the forearm. PT has been by, but not OT. Nurse will help correct the order for OT and cockup wrist splint that will also extend fingers. Reports sensation continues to improve into distal fingers. Objective Data Vital Signs Vital Signs: Vital Signs - 24 hr 07/15/20 16:00 07/15/20 20:00 07/15/20 21:41 Temperature 36.1 C L 37.2 C Pulse Rate 86 100 Respiratory Rate 15 20 Blood Pressure 142/96 H 139/79 Pulse Oximetry 95 95 88 L 07/15/20 22:00 07/16/20 00:00 07/16/20 02:50 Temperature 36.9 C Pulse Rate 80 79 Respiratory Rate 20 18 Blood Pressure 143/92 H 150/78 H Pulse Oximetry 90 95 96 07/16/20 04:00 07/16/20 08:00 07/16/20 09:45 Temperature 36.6 C 36.8 C Pulse Rate 80 76 Respiratory Rate 20 16 Blood Pressure 142/85 H 142/88 H Pulse Oximetry 97 96 95 Intake/Output Intake/Output: Intake & Output 07/13/20 07/14/20 07/15/20 07/16/20 23:59 23:59 23:59 23:59 Intake Total 3050 8307.5 8886.6667 1000 Output Total 540 4865 7255 3500 Balance 2510 3442.5 1631.0389 -2500 Meds/Results Medications: Active Medications Generic Name Dose Route Start Last Admin Trade Name Freq PRN Reason Stop Dose Admin Enoxaparin Sodium 40 mg 07/13/20 21:00 07/15/20 21:16 Enoxaparin 40 Mg/0.4 Ml Syringe SUB-Q 40 mg Q24H PHUC Administration Ondansetron HCl 4 mg 07/13/20 17:39 07/15/20 12:45 Ondansetron Inj 4 Mg/2 Ml Vial IV PUSH 4 mg Q4H PRN Administration Nausea Oxycodone HCl 5 mg 07/16/20 12:18 Oxycodone Hcl (*Crx) 5 Mg Tab Ir PO Q6H PRN Pain Rated 5 or Less Polyethylene Glycol 17 gm 07/15/20 11:20 07/16/20 08:45 Polyethylene Glycol 3350 17 Gm Powd.Pack PO 17 gm QAM PHUC Administration Radiology Results: ITS Impressions Head CT 07/13/20 15:23 IMPRESSION: 1. Normal brain. Forearm X-Ray 07/13/20 21:39 IMPRESSION: 1. No acute osseous abnormality. Wrist X-Ray 07/13/20 21:44 IMPRESSION: 1. Possible dorsal fracture of the wrist. Correlate for tenderness at this site and consider further evaluation with CT if present. Renal Ultrasound 07/15/20 11:38 IMPRESSION: 1. Normal kidneys. No hydronephrosis. 2. Left pleural effusion. Chest X-Ray 07/15/20 21:58 IMPRESSION: 1. Diffuse patchy bilateral airspace opacities, consistent with pneumonia and/or pulmonary edema or less likely atelectasis. Labs Labs: Laboratory Results - last 24 hr 07/15/20 07/15/20 07/15/20 21:59 23:50 23:54 WBC 13.8 H RBC 4.81 Hgb 13.7 L Hct 40.8 L MCV 84.8 MCH 28.5 MCHC 33.6 RDW 12.6 Plt Count 201 MPV 9.2 Immature Gran % (Auto) 0.3 Neut % (Auto) 69.8 Lymph % (Auto) 18.0 L Mellette % (Auto) 10.7 H Eos % (Auto) 0.9 Baso % (Auto) 0.3 Lymph # (Auto) 2.49 Mellette # (Auto) 1.5 H Eos # (Auto) 0.1 Baso # (Auto) 0.0 Abs Immat Gran (auto) 0.04 H Absolute Neuts (auto) 9.7 H Absolute Nucleated RBC 0.0 Nucleated RBC % 0.0 Puncture Site Left radial ABG pH 7.432 ABG pCO2 34.8 L ABG pO2 53.7 L ABG PO2/FiO2 Ratio 1.68 ABG HCO3 22.7 ABG O2 Saturation 89.1 L ABG O2 Content 18.6 ABG Base Excess -0.9 A-a Gradient 133.7 Oxyhemoglobin 89.5 L Carboxyhemoglobin 0.1 Methemoglobin 0.5 Reduced Hemoglobin 9.9 H Total Hemoglobin 14.8 O2 Delivery Device Nasal cannula O2 Liters/Min 3.
--- NOTE | 2020-07-16 14:50 | PM.PNNEP ---
Progress Note: A&P Assessment and Plan (1) Acute kidney failure: Qualifiers: Acute renal failure type: unspecified Qualified Code(s): N17.9 - Acute kidney failure, unspecified Code(s): N17.9 - Acute kidney failure, unspecified Status: Acute Assessment and Plan: resolved most likely secondary to rhabdomyolysis +/- prerenal factors CPK coming down as well good urine output noted follow repeat lab/electrolytes closely (2) Acute hyperkalemia: Code(s): E87.5 - Hyperkalemia Status: Acute Assessment and Plan: due to #1 corrected with ongoing therapy follow repeat levels (3) Rhabdomyolysis: Qualifiers: Rhabdomyolysis type: non-traumatic Qualified Code(s): M62.82 - Rhabdomyolysis Code(s): M62.82 - Rhabdomyolysis Status: Acute Assessment and Plan: as noted by elevated CPK follow daily values (4) Compartment syndrome of forearm: Code(s): T79.A19A - Traumatic compartment syndrome of unspecified upper extremity, initial encounter Status: Acute Assessment and Plan: seen by Dr. Bishop and s/p fasciotomy PT/OT as tolerated continue supportive care Not much else to offer from renal perspective -- will continue to follow from a distance. Subjective Date/time seen: 07/16/20 14:50 Appears to be doing reasonably well -- arm seems better although still some limitation in movement at this time; making good urine out with normalization of renal function; pain control seems adequate as well. Exam Narrative: Exam Narrative: General: WD/WN male in NAD Heart: normal S1 and S2; no rub Lungs: clear to auscultation Abdomen: soft, nontender, nondistended, positive bowel sounds Extremities: no cyanosis or clubbing; no edema Skin: warm and intact Objective Data Vital Signs Vital Signs: Vital Signs Temp Pulse Resp BP Pulse Ox 07/16/20 14:00 36.7 C 85 16 149/85 H 96 07/16/20 09:45 36.8 C 76 16 142/88 H 95 07/16/20 08:00 96 07/16/20 04:00 36.6 C 80 20 142/85 H 97 07/16/20 02:50 79 18 150/78 H 96 07/16/20 00:00 36.9 C 80 20 143/92 H 95 07/15/20 22:00 90 07/15/20 21:41 88 L 07/15/20 20:00 37.2 C 100 20 139/79 95 07/15/20 16:00 36.1 C L 86 15 142/96 H 95 Intake/Output Intake/Output: Intake & Output 07/13/20 07/14/20 07/15/20 07/16/20 23:59 23:59 23:59 23:59 Intake Total 3050 8307.5 8886.6667 1240 Output Total 540 4865 7255 3500 Balance 2510 3442.5 1631.5354 -9884 Meds/Results Medications: Active Medications Generic Name Dose Route Start Last Admin Trade Name Freq PRN Reason Stop Dose Admin Enoxaparin Sodium 40 mg 07/13/20 21:00 07/15/20 21:16 Enoxaparin 40 Mg/0.4 Ml Syringe SUB-Q 40 mg Q24H PHUC Administration Ondansetron HCl 4 mg 07/13/20 17:39 07/15/20 12:45 Ondansetron Inj 4 Mg/2 Ml Vial IV PUSH 4 mg Q4H PRN Administration Nausea Oxycodone HCl 5 mg 07/16/20 12:23 Oxycodone Hcl (*Crx) 5 Mg Tab Ir PO Q6H PRN Pain Polyethylene Glycol 17 gm 07/15/20 11:20 07/16/20 08:45 Polyethylene Glycol 3350 17 Gm Powd.Pack PO 17 gm QAM PHUC Administration Radiology Results: ITS Impressions Head CT 07/13/20 15:23 IMPRESSION: 1. Normal brain. Forearm X-Ray 07/13/20 21:39 IMPRESSION: 1. No acute osseous abnormality. Wrist X-Ray 07/13/20 21:44 IMPRESSION: 1. Possible dorsal fracture of the wrist. Correlate for tenderness at this site and consider further evaluation with CT if present. Renal Ultrasound 07/15/20 11:38 IMPRESSION: 1. Normal kidneys. No hydronephrosis. 2. Left pleural effusion. Chest X-Ray 07/15/20 21:58 IMPRESSION: 1. Diffuse patchy bilateral airspace opacities, consistent with pneumonia and/or pulmonary edema or less likely atelectasis. Labs Labs: Laboratory Tests 07/16/20 04:55 07/16/20 04:55 07/16/20 04:55
--- NOTE | 2020-07-16 16:03 | PM.IMPN ---
Progress Note: A&P Assessment and Plan (1) Acute encephalopathy: Code(s): G93.40 - Encephalopathy, unspecified Status: Acute Assessment and Plan: The patient with acute encephalopathy on admission felt likely secondary to drug intoxication. Symptoms have improved. He does have an underlying auditory processing disorder. Follow (2) Rhabdomyolysis: Qualifiers: Rhabdomyolysis type: non-traumatic Qualified Code(s): M62.82 - Rhabdomyolysis Code(s): M62.82 - Rhabdomyolysis Status: Acute Assessment and Plan: TCK >16K on admission. Related to being down on the ground and from the compartment syndrome. TCK down to 5.5K. IV fluid stopped but will resume. Lasix IV once. Continue to monitor renal function and urine output. Nephrology following. Check Echo given the pulmonary edema. Lasix to control fluid status. (3) Compartment syndrome of forearm: Code(s): T79.A19A - Traumatic compartment syndrome of unspecified upper extremity, initial encounter Status: Acute Assessment and Plan: Likely secondary to the patient laying on his arm while unconscious. Possible wrist fracture. Patient was having tingling and weakness in the right hand so Plastic surgery evaluated the patient and he was taken to the OR for fasciotomy 07/14. Neurologic exam slowly improving but unclear if there is any ad terminal makeup operator damage. Appreciate Plastic surgery input. (4) Acute kidney failure: Qualifiers: Acute renal failure type: unspecified Qualified Code(s): N17.9 - Acute kidney failure, unspecified Code(s): N17.9 - Acute kidney failure, unspecified Status: Acute Assessment and Plan: Likely secondary to acute rhabdomyolysis and dehydration. Cr normal today. Renal US normal. Nephrology following. Continue aggressive hydration. (5) Elevated LFTs: Code(s): R79.89 - Other specified abnormal findings of blood chemistry Status: Acute Assessment and Plan: Related to above. Possibly even shock liver. Hepatitis panel and HIV negative. AST/ALT trending down. Follow. (6) Drug overdose: Code(s): T50.901A - Poisoning by unspecified drugs, medicaments and biological substances, accidental (unintentional), initial encounter Status: Acute Assessment and Plan: Patient found down at home with improvement with narcan. UDS only positive for marijuana but still possible he overdosed on opiods. He admits to taking Percocet one day before and Xanax on the day of admission. Educated about the benefits of abstaining from drug use. (7) Acute hyperkalemia: Code(s): E87.5 - Hyperkalemia Status: Acute Assessment and Plan: Potassium 6.6 on admission. Likely secondary to acute renal failure. Treated appropriately and repeat potassium normal. Suspect the NSVT on 07/14 related to hyperkalemia. Off tele now (8) Severe sepsis: Code(s): A41.9 - Sepsis, unspecified organism; R65.20 - Severe sepsis without septic shock Status: Acute Assessment and Plan: Sepsis vs SIRS w/ tachycardia, tachypnea, elevated WBC, elevated lactic acid. There is no clear source of infection at this time and felt due to severe dehydration and related to above. He was empirically treated with IV ceftriaxone but this has been stopped. (9) Tobacco dependence: Code(s): F17.200 - Nicotine dependence, unspecified, uncomplicated Status: Chronic Assessment and Plan: Patient has been educated about benefits of smoking cessation (10) ADHD: Code(s): F90.9 - Attention-deficit hyperactivity disorder, unspecified type Status: Chronic Assessment and Plan: stable. No home med listed. (11) DVT prophylaxis: Code(s): Z29.9 - Encounter for prophylactic measures, unspecified Status: Acute Assessment and Plan: Lovenox Subjective Date/time seen: 07/16/
[2020-07-16] MEDS: FUROSEMIDE INJ 40 MG/4 ML VIAL 20 MG IV PUSH (17:39)
[2020-07-16] MEDS: SODIUM CHLORIDE 0.9% IV 1,000 ML 100 ML IV CONT (17:46)
[2020-07-16] MEDS: ENOXAPARIN 40 MG/0.4 ML SYRINGE SUB-Q (20:27)
[2020-07-16] MEDS: HYDROcodone/acetaminophen (*CRX) 5-325 MG TABLET 2 TAB PO (23:29)
[2020-07-17] VITALS: BP 129/80; PULSE 60; RESP 16; TEMP 36.6; O2SAT 99
--- NOTE | 2020-07-17 | ECHO_ITS ---
Patient Info Name: Zenon Crocker Age: 19 years : 2000 Gender: Male Ht: 69 in Wt: 180 lbs BSA: 2.01 m2 HR: 55 bpm BP: 143 / 79 mmHg Heart Rhythm: Sinus Rhythm Technical Quality: Good Exam Date: 07/17/2020 11:35 AM Exam Location: [facility] Pulmonary Patient Status: Inpatient Admit Date: 07/13/2020 Staff Ordering Physician: Chandler Cabrales MD Clinical Office Technician: Monserrat Guajardo RDCS Attending Provider: Chandler Cabrales MD Exam Type: CA echo doppler color flow Study Info Complete two-dimensional, color flow and Doppler transthoracic echocardiogram is performed. Summary 1. Complete two-dimensional, color flow and Doppler transthoracic echocardiogram is performed. 2. Unremarkable echocardiogram. Left Ventricle Left ventricular chamber dimension is normal. Left ventricular systolic function is normal, estimated at 50-55%. The left ventricular diastolic function is normal. Right Ventricle Right ventricular chamber dimension is normal. Left Atria Left atrial chamber dimension is normal. Right Atria Right atrial chamber dimension is normal. Aortic Valve The aortic valve is normal. Pulmonic Valve The pulmonic valve is normal. Mitral Valve The mitral valve has normal leaflets. Tricuspid Valve The tricuspid valve leaflets are normal. Pericardium/Pleural The pericardium appears normal. Aorta The aortic root size at the sinus of Valsalva is normal. Left Ventricular Outflow Tract Name Value Normal LVOT 2D LVOT Diameter 2.2 cm LVOT Doppler LVOT Peak Gradient 5 mmHg LVOT Mean Gradient 3 mmHg LVOT VTI 26 cm LVOT VTI/AV VTI Ratio 0.9 LVOT Stroke Volume 101 ml LVOT CO 5.6 l/min LVOT CI 2.8 l/min/m2 Pulmonic Valve Name Value Normal PV Doppler PV Peak Gradient 6 mmHg Mitral Valve Name Value Normal MV Doppler MV Decel Starke 266 cm/s2 MV PHT 84 ms MV Area (PHT) 2.6 cm2 4.0-5.0 MV Diastolic Function MV E Peak Velocity 77 cm/s MV A Peak Velocity 36 cm/s MV E/A 2.1 MV Decel Time 289 ms MV A Wave Duration 133 ms MV Annular TD
--- NOTE | 2020-07-17 00:40 | PC.NURSE ---
I HAVE ATTEMPTED TWICE TO APPLY THE SPLINT TO HIS RIGHT WRIST. PT IS REFUSING SPLINT TO BE PUT ON AT THIS TIME.
[2020-07-17] MEDS: oxyCODONE HCL (*CRX) 5 MG TAB IR PO ×3 (03:52→20:36)
[2020-07-17 04:00] VITALS: BP 143/79; PULSE 60; RESP 16; TEMP 36.6; O2SAT 98
[2020-07-17] MEDS: SODIUM CHLORIDE 0.9% IV 1,000 ML 100 ML IV CONT ×3 (05:32→23:58)
[2020-07-17 06:50] LABS: Alanine Aminotransferase 609 U/L (4-50); Alkaline Phosphatase 88 U/L (38-126); Anion Gap 4 mmol/L (8-16); Aspartate Amino Transferase 250 U/L (17-59); Bilirubin,Total 0.6 mg/dL (0.2-1.3); Blood Urea Nitrogen 12 mg/dL (9-20); Calcium 8.4 mg/dL (8.4-10.2); Carbon Dioxide 28 mmol/L (22-30); Chloride 105 mmol/L (98-107); Creatine Kinase 2777 U/L (55-170); Estimated CRCL calculation 144 ml/min; Estimated Glomerular Filt Rate > 60; Glucose 95 mg/dL (75-110); Sodium 137 mmol/L (137-145)
[2020-07-17 10:00] VITALS: BP 141/89; PULSE 55; RESP 16; TEMP 36.7; O2SAT 100
[2020-07-17] MEDS: ONDANSETRON INJ 4 MG/2 ML VIAL IV PUSH (10:10)
[2020-07-17] MEDS: HYDROcodone/acetaminophen (*CRX) 5-325 MG TABLET 2 TAB PO ×3 (10:10→23:57)
[2020-07-17] MEDS: polyethylene glycoL 3350 17 GM POWD.PACK PO (10:10)
[2020-07-17] MEDS: FUROSEMIDE INJ 40 MG/4 ML VIAL 20 MG IV PUSH ×2 (10:57→16:35)
[2020-07-17 14:00] VITALS: BP 143/76; PULSE 52; RESP 16; TEMP 36.8; O2SAT 98
--- NOTE | 2020-07-17 15:18 | PM.IMPN ---
Progress Note: A&P Assessment and Plan (1) Acute encephalopathy: Code(s): G93.40 - Encephalopathy, unspecified Status: Acute Assessment and Plan: The patient with acute encephalopathy on admission felt likely secondary to drug intoxication. Symptoms have improved. He does have an underlying auditory processing disorder. Follow (2) Rhabdomyolysis: Qualifiers: Rhabdomyolysis type: non-traumatic Qualified Code(s): M62.82 - Rhabdomyolysis Code(s): M62.82 - Rhabdomyolysis Status: Acute Assessment and Plan: TCK >16K on admission. Related to being down on the ground and from the compartment syndrome. TCK down to 2.7K. IV fluid was stopped for a day due to pulmonary edema but has been resumed. Echo normal. Repeat Lasix IV. Continue to monitor renal function and urine output. Nephrology following. (3) Compartment syndrome of forearm: Code(s): T79.A19A - Traumatic compartment syndrome of unspecified upper extremity, initial encounter Status: Acute Assessment and Plan: Likely secondary to the patient laying on his arm while unconscious. Possible wrist fracture. Patient was having tingling and weakness in the right hand so Plastic surgery evaluated the patient and he was taken to the OR for fasciotomy 07/14. Neurologic exam slowly improving but unclear if there is any business development specialist damage. Appreciate Plastic surgery input. (4) Acute kidney failure: Qualifiers: Acute renal failure type: unspecified Qualified Code(s): N17.9 - Acute kidney failure, unspecified Code(s): N17.9 - Acute kidney failure, unspecified Status: Acute Assessment and Plan: Likely secondary to acute rhabdomyolysis and dehydration. Cr normal today. Renal US normal. Nephrology following. (5) Elevated LFTs: Code(s): R79.89 - Other specified abnormal findings of blood chemistry Status: Acute Assessment and Plan: Related to above. Possibly even shock liver. Hepatitis panel and HIV negative. AST/ALT trending down. Follow. (6) Drug overdose: Code(s): T50.901A - Poisoning by unspecified drugs, medicaments and biological substances, accidental (unintentional), initial encounter Status: Acute Assessment and Plan: Patient found down at home with improvement with narcan. UDS only positive for marijuana but still possible he overdosed on opiods. He admits to taking Percocet one day before and Xanax on the day of admission. Educated about the benefits of abstaining from drug use. (7) Acute hyperkalemia: Code(s): E87.5 - Hyperkalemia Status: Acute Assessment and Plan: Potassium 6.6 on admission. Likely secondary to acute renal failure. Treated appropriately and repeat potassium normal. Suspect the NSVT on 07/14 related to hyperkalemia. Off tele now (8) Severe sepsis: Code(s): A41.9 - Sepsis, unspecified organism; R65.20 - Severe sepsis without septic shock Status: Acute Assessment and Plan: More likely SIRS w/ tachycardia, tachypnea, elevated WBC, elevated lactic acid. There is no clear source of infection at this time and felt due to severe dehydration and related to above. He was empirically treated with IV ceftriaxone but this has been stopped. (9) Tobacco dependence: Code(s): F17.200 - Nicotine dependence, unspecified, uncomplicated Status: Chronic Assessment and Plan: Patient has been educated about benefits of smoking cessation. Pt requesting a patch (10) ADHD: Code(s): F90.9 - Attention-deficit hyperactivity disorder, unspecified type Status: Chronic Assessment and Plan: stable. No home med listed. (11) DVT prophylaxis: Code(s): Z29.9 - Encounter for prophylactic measures, unspecified Status: Acute Assessment and Plan: Lovenox Subjective Date/time seen: 07/17/20 15:18 Inter
--- NOTE | 2020-07-17 18:09 | WPDPN ---
Progress Note: A&P Assessment and Plan (1) Elevated LFTs: Code(s): R79.89 - Other specified abnormal findings of blood chemistry Status: Acute Assessment and Plan: All LFT's continue to trend downward. (2) Compartment syndrome of forearm: Code(s): T79.A19A - Traumatic compartment syndrome of unspecified upper extremity, initial encounter Status: Acute Assessment and Plan: It appears that acute compartment syndrome is relieved. 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 (3) Rhabdomyolysis: Qualifiers: Rhabdomyolysis type: non-traumatic Qualified Code(s): M62.82 - Rhabdomyolysis Code(s): M62.82 - Rhabdomyolysis Status: Acute Assessment and Plan: TCK has fallen from >11267 on admission to 2770. The high initial numbers don't amanda well for full recovery of muscle function. (4) Severe sepsis: Code(s): A41.9 - Sepsis, unspecified organism; R65.20 - Severe sepsis without septic shock Status: Acute Assessment and Plan: Acute elevation of WBC without significant left shift suggests cause other than sepsis such as the compartment syndrome etc. Additional Plan Elevation of extremity above heart at all times. Continue with OT for ROM. Splint part of the day and night to prevent flexion contracture. Telfa and gauze bandage to healing arm wounds. Will need OT upon discharge. Time Spent With Patient Time with patient: 15 - 25 minutes Exam Narrative: Exam Narrative: Pt much more interactive. Has showered. Asked that I plug in his fan. Showed me what his hand could do without my asking. Color good. Says numbness continues to improve. Able to barajas his cell phone with right hand if the phone is beneath his hand. Not able to extend wrist and fingers at the same time. Not able to extend thumb. Able to form a full fist. Intrinsics appear to be functioning. No tenderness to compression in the forearm. Not tender to passive flexion or extension of wrist, in contrast to acute pain on my initial visit. Objective Data Vital Signs Vital Signs: Vital Signs - 24 hr 07/16/20 20:00 07/17/20 00:00 07/17/20 04:00 Temperature 37.1 C 36.6 C 36.6 C Pulse Rate 77 60 60 Respiratory Rate 18 16 16 Blood Pressure 143/76 H 129/80 143/79 H Pulse Oximetry 99 99 98 07/17/20 10:00 07/17/20 14:00 Temperature 36.7 C 36.8 C Pulse Rate 55 L 52 L Respiratory Rate 16 16 Blood Pressure 141/89 H 143/76 H Pulse Oximetry 100 98 Intake/Output Intake/Output: Intake & Output 07/14/20 07/15/20 07/16/20 07/17/20 23:59 23:59 23:59 23:59 Intake Total 8307.5 8886.6667 1990 3290 Output Total 4786 7255 8598 6000 Balance 3442.5 1631.6667 -6535 -1410 Meds/Results Medications: Active Medications Generic Name Dose Route Start Last Admin Trade Name Freq PRN Reason Stop Dose Admin Hydrocodone Bitart/Acetaminophen 2 tab 07/16/20 20:47 07/17/20 16:35 Hydrocodone/Acetaminophen (*Crx) 5-325 Mg Tablet PO 2 tab Q6H PRN Administration Pain Rated 7-10 Enoxaparin Sodium 40 mg 07/13/20 21:00 07/16/20 20:27 Enoxaparin 40 Mg/0.4 Ml Syringe SUB-Q 40 mg Q24H PHUC Administration Sodium Chloride 1,000 mls @ 100 mls/hr 07/16/20 16:50 07/17/20 14:39 Normal Saline Iv IV CONT 100 mls/hr .Q10H PHUC Administration Nicotine 1 patch 07/17/20 15:30 07/17/20 16:37 Nicotine (*Pbkc) 14 Mg Patch TRANSDERM Not Given QAM PHUC Ondansetron HCl 4 mg 07/13/20 17:39 07/17/20 10:10 Ondansetron Inj 4 Mg/2 Ml Vial IV PUSH 4 mg Q4H PRN Administration Nausea Oxycodone HCl 5 mg 07/16/20 12:23 07/17/20 14:38 Oxycodone Hcl (*Crx) 5 Mg Tab Ir PO 5 mg Q6H PRN Administration BREAKTHROUGH PAIN Polyethylene Glycol 17 gm 07/15/20 11:20 07/17/20 10:10 Polyethylene Glycol 3350 17 Gm Powd.Pack PO 17 gm QAM PHUC Administration Radiology Results: ITS Impressions Head CT 07/13/20 15:23 IMPRESSION: 1.
[2020-07-17 18:10] VITALS: BP 169/90; PULSE 58; RESP 14; TEMP 36.2; O2SAT 98
[2020-07-17 20:00] VITALS: BP 134/90; PULSE 62; RESP 16; TEMP 36.5; O2SAT 99
[2020-07-17] MEDS: ENOXAPARIN 40 MG/0.4 ML SYRINGE SUB-Q (20:34)
[2020-07-18 01:01] VITALS: BP 139/85; PULSE 69; RESP 18; TEMP 36.4; O2SAT 99
[2020-07-18 04:00] VITALS: BP 125/74; PULSE 60; RESP 18; TEMP 36.2; O2SAT 99
[2020-07-18] MEDS: oxyCODONE HCL (*CRX) 5 MG TAB IR PO ×2 (04:42→11:36)
[2020-07-18 05:00] VITALS: BP 125/74; PULSE 60; RESP 18; TEMP 36.2; O2SAT 99
[2020-07-18 06:46] LABS: Alanine Aminotransferase 468 U/L (4-50); Albumin Level 3.1 g/dL (3.5-5.1); Alkaline Phosphatase 82 U/L (38-126); Anion Gap 6 mmol/L (8-16); Aspartate Amino Transferase 215 U/L (17-59); Bilirubin,Total 0.5 mg/dL (0.2-1.3); Blood Urea Nitrogen 12 mg/dL (9-20); Calcium 8.7 mg/dL (8.4-10.2); Carbon Dioxide 26 mmol/L (22-30); Chloride 105 mmol/L (98-107); Estimated CRCL calculation 144 ml/min; Estimated Glomerular Filt Rate > 60; Glucose 107 mg/dL (75-110); Sodium 137 mmol/L (137-145)
[2020-07-18 06:48] LABS: Creatine Kinase 1317 U/L (55-170)
[2020-07-18] MEDS: ONDANSETRON INJ 4 MG/2 ML VIAL IV PUSH (09:02)
[2020-07-18] MEDS: HYDROcodone/acetaminophen (*CRX) 5-325 MG TABLET 2 TAB PO (09:03)
[2020-07-18] MEDS: polyethylene glycoL 3350 17 GM POWD.PACK PO (09:05)
[2020-07-18 09:56] VITALS: BP 141/84; PULSE 67; RESP 16; TEMP 36.3; O2SAT 99
[2020-07-18 10:13] LABS: Add Urine Microscopic? YES; Appearance Urine Clear (Clear); Bacteria Urine Trace /hpf; Bilirubin Urine Negative (Negative); Blood Urine Negative (Negative); Color Urine Yellow (Yellow); Glucose Urine UA Negative (Negative); Ketones Urine Negative (Negative); Leukocyte Esterase Ur Negative LEU/UL (NEGATIVE); Nitrate Urine Negative (Negative); Protein Urine Negative (Negative); RBC Urine 0-2 /hpf (0-2); Specific Grav Ur 1.016 (1.001-1.035); WBC Urine 0-3 /hpf (0-3)
--- NOTE | 2020-07-18 11:55 | WPDPN ---
Progress Note: A&P Assessment and Plan (1) Compartment syndrome of forearm: Code(s): T79.A19A - Traumatic compartment syndrome of unspecified upper extremity, initial encounter Status: Acute Assessment and Plan: It appears that acute compartment syndrome is relieved. 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 (2) Elevated LFTs: Code(s): R79.89 - Other specified abnormal findings of blood chemistry Status: Acute Assessment and Plan: All LFT's continue to trend downward. (3) Rhabdomyolysis: Qualifiers: Rhabdomyolysis type: non-traumatic Qualified Code(s): M62.82 - Rhabdomyolysis Code(s): M62.82 - Rhabdomyolysis Status: Acute Assessment and Plan: TCK has fallen from >64643 on admission to 1317 The high initial numbers don't amanda well for full recovery of muscle function. (4) Severe sepsis: Code(s): A41.9 - Sepsis, unspecified organism; R65.20 - Severe sepsis without septic shock Status: Acute Assessment and Plan: Acute elevation of WBC without significant left shift suggests cause other than sepsis such as the compartment syndrome etc. Additional Plan Elevation of extremity above heart at all times. Continue with OT for ROM. Splint part of the day and night to prevent flexion contracture. Telfa and gauze bandage to healing arm wounds. Will need OT upon discharge. Time Spent With Patient Time with patient: less than 15 minutes Exam Narrative: Exam Narrative: More alert again and interactive. Upper extremity not elevated above heart. Right UE edema still notable from elbow to finger tips. Wounds closing well. No significant pain to forearm or wrist compression. Shoulder and elbow movement remain normal. Combined wrist and digit extension is very limited. Wrist and digit flexion remains good. Abduction of digits is functional. Adduction of D5 is limited. Abduction of thumb is functional but extension is not. Not tender. Sensation in fingers continues to slowly improve . Objective Data Vital Signs Vital Signs: Vital Signs - 24 hr 07/17/20 14:00 07/17/20 18:10 07/17/20 20:00 Temperature 36.8 C 36.2 C L 36.5 C Pulse Rate 52 L 58 L 62 Respiratory Rate 16 14 16 Blood Pressure 143/76 H 169/90 H 134/90 Pulse Oximetry 98 98 99 07/18/20 01:01 07/18/20 04:00 07/18/20 05:00 Temperature 36.4 C L 36.2 C L 36.2 C L Pulse Rate 69 60 60 Respiratory Rate 18 18 18 Blood Pressure 139/85 125/74 125/74 Pulse Oximetry 99 99 99 07/18/20 09:56 Temperature 36.3 C L Pulse Rate 67 Respiratory Rate 16 Blood Pressure 141/84 H Pulse Oximetry 99 Intake/Output Intake/Output: Intake & Output 07/15/20 07/16/20 07/17/20 07/18/20 23:59 23:59 23:59 23:59 Intake Total 8886.6667 1989 4530 780 Output Total 7255 8525 5600 1300 Balance 1631.6667 -6535 -1070 -520 Meds/Results Medications: Active Medications Generic Name Dose Route Start Last Admin Trade Name Freq PRN Reason Stop Dose Admin Hydrocodone Bitart/Acetaminophen 2 tab 07/16/20 20:47 07/18/20 09:03 Hydrocodone/Acetaminophen (*Crx) 5-325 Mg Tablet PO 2 tab Q6H PRN Administration Pain Rated 7-10 Enoxaparin Sodium 40 mg 07/13/20 21:00 07/17/20 20:34 Enoxaparin 40 Mg/0.4 Ml Syringe SUB-Q 40 mg Q24H PHUC Administration Sodium Chloride 1,000 mls @ 100 mls/hr 07/16/20 16:50 07/17/20 23:58 Normal Saline Iv IV CONT 100 mls/hr .Q10H PHUC Administration Nicotine 1 patch 07/17/20 15:30 07/18/20 09:05 Nicotine (*Pbkc) 14 Mg Patch TRANSDERM Not Given QAM PHUC Ondansetron HCl 4 mg 07/13/20 17:39 07/18/20 09:02 Ondansetron Inj 4 Mg/2 Ml Vial IV PUSH 4 mg Q4H PRN Administration Nausea Oxycodone HCl 5 mg 07/16/20 12:23 07/18/20 11:36 Oxycodone Hcl (*Crx) 5 Mg Tab Ir PO 5 mg Q6H PRN Administration BREAKTHROUGH PAIN Polyethylene Glycol 17 gm 07/15/20 11:20 07/18/20 09:05 Polyethylene Glycol
--- NOTE | 2020-07-18 12:22 | PM.DS ---
DS: Admitting Diagnosis Admitting Diagnosis Admitting Diagnosis: overdose, rhabdomyolysis, hyperkalemia DS: Discharge Diagnosis Discharge Diagnosis (1) Acute encephalopathy: Code(s): G93.40 - Encephalopathy, unspecified Status: Acute Assessment and Plan: The patient with acute encephalopathy on admission secondary to drug intoxication. Symptoms have resolved. He does have an underlying auditory processing disorder. (2) Rhabdomyolysis: Qualifiers: Rhabdomyolysis type: non-traumatic Qualified Code(s): M62.82 - Rhabdomyolysis Code(s): M62.82 - Rhabdomyolysis Status: Acute Assessment and Plan: TCK >16K on admission. Related to being down on the ground and from the compartment syndrome. Treated with IV fluids and Lasix once renal function improved. TCK down to 1317. Renal function normalized and he had excellent urine output. Nephrology followed along. Echo performed due to developing pulmonary edema and was normal. Pulmonary edema related to the IV fluids and resolved with Lasix. (3) Compartment syndrome of forearm: Code(s): T79.A19A - Traumatic compartment syndrome of unspecified upper extremity, initial encounter Status: Acute Assessment and Plan: Likely secondary to the patient laying on his arm while unconscious. Possible wrist fracture by x-ray but not felt to be so by surgery. Patient was having tingling and weakness in the right hand onadmission so Plastic surgery evaluated the patient and he was taken to the OR for fasciotomy 07/14. Neurologic exam has slowly improved since but unclear if there is any group home damage. Patient to follow up with Plastic surgery (4) Acute kidney failure: Qualifiers: Acute renal failure type: unspecified Qualified Code(s): N17.9 - Acute kidney failure, unspecified Code(s): N17.9 - Acute kidney failure, unspecified Status: Acute Assessment and Plan: Cr 2.1 on admission related to dehydration and Rhabdomyolysis. With IV fluids, Cr normalized. Renal US normal. (5) Elevated LFTs: Code(s): R79.89 - Other specified abnormal findings of blood chemistry Status: Acute Assessment and Plan: AST 995 and ALT 845. Related to above. Possibly even shock liver. Hepatitis panel and HIV negative. AST/ALT trending down. (6) Drug overdose: Code(s): T50.901A - Poisoning by unspecified drugs, medicaments and biological substances, accidental (unintentional), initial encounter Status: Acute Assessment and Plan: Patient found down at home with improvement with Narcan. UDS only positive for marijuana but still possible he overdosed on opioids. He admits to taking Percocet one day before and Xanax on the day of admission. Mother states patient has had unintentional overdose in the past from narcotics. Patient was educated about the benefits of abstaining from drug use. (7) Acute hyperkalemia: Code(s): E87.5 - Hyperkalemia Status: Acute Assessment and Plan: Potassium 6.6 on admission. Likely secondary to above. Treated appropriately and repeat potassium normal. Suspect the NSVT on 07/14 related to hyperkalemia. No recurrence. (8) Severe sepsis: Code(s): A41.9 - Sepsis, unspecified organism; R65.20 - Severe sepsis without septic shock Status: Acute Assessment and Plan: More likely SIRS w/ tachycardia, tachypnea, elevated WBC, elevated lactic acid. There is no clear source of infection at this time and felt symptoms due to severe dehydration and related to above. He was empirically treated with IV ceftriaxone but this was stopped. (9) Tobacco dependence: Code(s): F17.200 - Nicotine dependence, unspecified, uncomplicated Status: Chronic Assessment and Plan: Patient was educated about benefits of smoking cessation. (10) ADHD: Code(s): F90.9 - Attention-def
[2020-07-18 14:00] VITALS: BP 155/84; PULSE 68; RESP 16; TEMP 36.7; O2SAT 99
--- NOTE | 2020-07-18 14:15 | PC.NURSE ---
Addendum entered by Gracie Rock RN 07/18/20 16:02: PATIENT ACTUALLY DISCHARGED AT 1540 NOT 1440 Original Note: Patient being discharged today. Per Dr. Cabrales, he has spoken with the patient's mother and she has been informed of discharge and given a status update. Patient is on the phone with various friends trying to find a ride home. Patient now states he is going home via Uber. Discussed d/c instructions with patient. Patient texting and not paying attention at intervals. Instructed patient on dressing changes to right arm and the importance of wearing his splint as ordered. Dressing supplies sent home with patient for use with dressing changes. Patient also instructed on the importance of calling and setting up outpatient occupational therapy and following up with Dr. Zacarias next week for incision check/staple check. Patient verbalized his understanding. Patient was given the number for outpatient O.T. at [facility]. Patient was also instructed on the importance of getting followup labwork drawn. Patient verbalized his understanding of all instructions given. Patient's dressing was D/I at time of discharge. Splint was with patient but patient refused to put his splint on and states he will do it at home. 1440 - Patient discharged via wheelchair - [employer] marine engine driver here to transport patient.
== END 2020-07-18 15:40 | disposition home or self-care (01) | DRG 981 ==
LOC: ANHED 17:39 → ANHIMU 20:12 → ANH2MED 07-15 19:45
PROVIDERS: Family Medicine; Physician Assistant; Plastic Surgery; Admitting Provider Internal Medicine; Emergency Provider Emergency Medicine; PCP Family Medicine; Visit Provider Internal Medicine
PROC: 0KN90ZZ Release Right Lower Arm and Wrist Muscle, Open Approach (ICD-10-PCS; CPT 26045; principal; 2020-07-14 10:15)
DX: T40.411A Poisoning by fentanyl or fentanyl analogs, accidental (unintentional), initial encounter (principal); A41.9 Sepsis, unspecified organism; G92 Toxic encephalopathy; R65.11 Systemic inflammatory response syndrome (SIRS) of non-infectious origin with acute organ dysfunction; N17.9 Acute kidney failure, unspecified; M62.82 Rhabdomyolysis; T79.A11A Traumatic compartment syndrome of right upper extremity, initial encounter; F90.9 Attention-deficit hyperactivity disorder, unspecified type; E87.5 Hyperkalemia; T40.5X1A Poisoning by cocaine, accidental (unintentional), initial encounter; E86.0 Dehydration; F17.201 Nicotine dependence, unspecified, in remission
CPT/HCPCS: 36415; 36600; 51701; 70450; 71045; 73090; 73110; 76775; 80048; 80053; 80074; 80307; 81001; 82375; 82550; 82805; 82948; 83050; 83605; 83735; 83880; 84100; 85025; 85027; 86140; 86703; 87040; 93005; 93306; 96361; 96374; 96375; 97110; 97116; 97161; 97165; 97535; 97760; 99285; A9270; G0432; J0610; J0696; J1170; J1650; J1815; J1940; J2250; J2405; J2704; J3010; J7030; J7050; J7120

== ENCOUNTER 2020-08-09 10:30 | Outpatient (RCR) | payer MEDICARE, MEDICAID, SELFPAY ==
--- NOTE | 2020-08-03 16:05 | OTOPEVAL ---
OCCUPATIONAL THERAPY EVALUATION REPORT 08/03/2020 Thank you for referring Zenon Crocker to [facility].? The patient is scheduled to be seen for therapy? 1-2x/week for 5 weeks. Beginning with 1x/week and may increase to 2x/week depending on patient compliance with HEPs. Please review, sign, date and return this plan of care HERLINDA. I agree with and certify that the following plan of care is medically necessary. Referring Physician Date Referring Provider: Troy Zacarias MD *OT Outpatient Evaluation Therapy Assessment Status Assessment Status Assessment Status Evaluation Outpatient Past Medical History Neurological History Hx Neurological Disorders No Significant History Cardiovascular History Hx Cardiac Disorders No Significant History Respiratory History Hx Respiratory Disorders No Significant History Gastrointestinal History Hx Gastrointestinal Disorders No Significant History Genitourinary History Hx Genitourinary Disorders No Significant History Musculoskeletal History Hx Musculoskeletal Disorders No Significant History Hematological History Hx Hematological Disorders No Significant History Endocrine History Hx Endocrine Disorders No Significant History HEENT History Hx HEENT Disorders No Significant History Integumentary History Hx Skin Disorders No Significant History Reproductive History Hx Reproductive Disorders No Significant History Psychosocial History Hx Attention Deficit Hyperactivity Yes Disorder Hx Bipolar Disorder Yes Hx Other Psychiatric Disorders Yes: Auditory processing defecit Pain History History of Any Previous or Ongoing No Significant History Instance of Pain Anesthesia History Hx Anesthesia Reactions No Significant History Evaluation Information Problem Diagnosis (R) volar and dorsal decompression fasciotomy Onset 07/16/2020 Subjective Information Patient presents today with Query Text:As Reported By Patient/ his mom, Sheri. Sheri reports Family that the patient overdosed and had laid on his arm for an unknown period of time. He was diagnosed with acute compartment syndrome and underwent a volar and palmar fasciotomy. Zenon states that since his hospitalization his strength has improved some, but does state that it is difficult to move his fingers, wrist, and thumb. He states he is able to complete ADLs without assist and he has no
--- NOTE | 2020-08-18 15:14 | PCOTNOTE ---
Patient's mom called and cancelled pt's tx today. No reason given.
--- NOTE | 2020-08-23 11:30 | OTOPEVAL ---
OCCUPATIONAL THERAPY DISCHARGE NOTE 08/23/20 Zenon attended his initial evaluation on 08/03/21 and one subsequent treatment session on 08/09/20. He has not been seen since 08/09/20. Called patient today and he reports that he will be out of town for 6 months and will not be returning to therapy. He has been instructed in HEP for the right forearm, wrist, and hand. Overall questionable compliance with therapy. Discharging today with goals not met. Thank you for referring Zenon Crocker to [facility].?Please review, sign, date and return this D/C Note HERLINDA. I agree with and certify that the following plan of care is medically necessary. Referring Physician Date Referring Provider: Troy Zacarias MD
== END 2020-08-23 13:37 | disposition home or self-care (01) ==
LOC: ANHOT 10:30
PROVIDERS: PCP Family Medicine; Referring Provider Plastic Surgery; Visit Provider Plastic Surgery
DX: Z48.89 Encounter for other specified surgical aftercare (principal)
CPT/HCPCS: 97110; 97140; 97165

== ENCOUNTER 2020-08-12 15:55 | Emergency (ER) | payer MEDICARE, MEDICAID, SELFPAY ==
[2020-08-12 16:10] VITALS: BP 144/59; PULSE 66; RESP 15; TEMP 36.1; O2SAT 100
--- NOTE | 2020-08-12 16:12 | ED.MALEGU ---
HPI - Male Genitourinary General Chief complaint: Urogenital-Male Stated complaint: STD TESTING Time Seen by Provider: 08/12/20 16:43 Source: patient and RN notes reviewed Mode of arrival: ambulatory Limitations: no limitations History of Present Illness HPI Narrative: 20-year-old male presents with concern for STD exposure, penile discharge, dysuria for 2 days. Reports unprotected sex with multiple partners. He denies fever, abdominal pain, nausea, vomiting, lesions, testicle pain, swelling. MD Complaint: penile discharge and possible STD exposure Related Data Home Medications Medication Instructions Recorded Confirmed No Home Medications 08/12/20 08/12/20 Allergies Allergy/AdvReac Type Severity Reaction Status Date / Time No Known Allergies Allergy Verified 08/12/20 16:13 Review of Systems Review of Systems: Narrative: CONSTITUTIONAL: Denies malaise, chills, sweats, or fever. CARDIOVASCULAR: Denies chest pain, palpitations, or edema. RESPIRATORY: Denies cough or dyspnea. GASTROINTESTINAL: Denies abdominal pain, nausea, vomiting, diarrhea GENITOURINARY: Reports dysuria, penile discharge. Denies frequency, urgency SKIN: Denies penile lesions MUSCULOSKELETAL: Denies back pain or myalgia. All systems reviewed & are unremarkable except as noted in HPI and below PMFSH Past Medical History Medical History (Updated 08/12/20 @ 16:53 by Zenaida Christianson NP) Acquired auditory processing disorder Acute encephalopathy Acute kidney failure ADHD Drug overdose Rhabdomyolysis Tobacco dependence Family History Family History Other Unknown family medical history Social History Social History Smoking packs per day: 1 Smoking cigarettes per day: 20.0 Years smoked: 4 Smoking pack-years: 4.00 Smoking status: Current every day smoker Tobacco type: cigarettes Gender identity (if verbalized by the patient): Male Comments At time of signature, agree with nursing past medical, surgical, social and family history. There is no relevant family history pertinent to the presenting complaint Exam Narrative: Exam Narrative: GENERAL: Well-appearing, well-nourished, and in no acute distress. HEAD: Normocephalic. EYES: PERRLA, conjunctivae clear. NECK: Supple. No lymphadenopathy CHEST: Clear to auscultation. No respiratory distress. HEART: Regular rate and rhythm. SKIN: Warm, dry, no rash. NEURO: Alert and oriented x3. PSYCH: Normal mood and affect Course Course Emergency Course: Patient is aware of diagnosis, understands and agrees to treatment plan. Anticipatory guidance given. Patient agrees to follow-up as directed and is aware of reasons to seek care at the emergency department. Portions of this record may have been created with voice recognition software Vital Signs Vital signs: Reviewed. MDM - Male Genitourinary MDM Narrative Medical decision making narrative: Exam findings show no acute concerns or changes; patient is non-toxic appearing and is in no distress. Patient is appropriate for outpatient treatment and follow-up. Critical Care Time Critical Care Time Critical Care Time: No Discharge Plan Discharge Clinical Impression: Sexually transmitted disease exposure Patient Disposition: Home, Self-Care Condition: Stable Instructions: Antibiotic Form, Safe Sex Practices (ED) Additional Instructions: You have been tested for potential gonorrhea, chlamydia, and trichomoniasis today. You have received antibiotics for gonorrhea, chlamydia, and trichomoniasis. You will receive a phone call in 2-3 days with the results of today's testing. It is very important that you avoid unprotected intercourse for 7 days and until your partner(s) have been treated. Please encourage your partner(s) to seek testing and treatment. When you have been exposed to sexually transmitted infections, it is
[2020-08-12] MEDS: metroNIDAZOLE 250 MG TABLET 2000 MG PO (16:58)
[2020-08-12] MEDS: AZITHROMYCIN 250 MG TABLET 1000 MG PO (16:58)
[2020-08-12] MEDS: cefTRIAXone 250 MG VIAL IM (16:59)
[2020-08-12] MEDS: LIDOCAINE HCL 1% LOCAL INJ 20 ML VIAL INFILTRATE (16:59)
== END 2020-08-12 17:19 | disposition home or self-care (01) ==
PROVIDERS: Emergency Provider Nurse Practitioner; PCP Family Medicine
DX: Z20.2 Contact with and (suspected) exposure to infections with a predominantly sexual mode of transmission (principal); F17.210 Nicotine dependence, cigarettes, uncomplicated; H93.25 Central auditory processing disorder
CPT/HCPCS: 87491; 87591; 87661; 96372; 99213; A9270; G0463; J0696

== ENCOUNTER 2020-12-21 14:26 | Emergency (ER) | payer MEDICARE, MEDICAID, SELFPAY ==
--- NOTE | 2020-12-21 14:30 | PC.NURSE ---
meteorologist in charge at desk to speak to pt. pt not wanting to be evaluated. keeps telling grandmother that came with him that he is fine. pt states took 2 xanax bars and a percocet last night to get high. denies si or hi. grandmother wants pt to get checked out and admitted for awhile. pt does not want to be seen. left ed.
== END 2020-12-21 14:30 | disposition left against medical advice (07) ==
PROVIDERS: PCP Family Medicine
DX: Z53.21 Procedure and treatment not carried out due to patient leaving prior to being seen by health care provider (principal)
CPT/HCPCS: 99199

== ENCOUNTER 2020-12-21 20:04 | Emergency (ER) | payer MEDICARE, MEDICAID, SELFPAY ==
[2020-12-21 20:15] VITALS: BP 123/62; PULSE 76; RESP 18; TEMP 36.6; O2SAT 98
--- NOTE | 2020-12-21 20:18 | ED.OVERDOSE ---
HPI - Overdose General Chief Complaint: Overdose <William Aranda MD - Last Filed: 12/22/20 19:41> Stated Complaint: od <William Aranda MD - Last Filed: 12/22/20 19:41> Time Seen by Provider: 12/21/20 20:06 <William Aranda MD - Last Filed: 12/22/20 19:41> History of Present Illness HPI Narrative: 20 yo male presents from home for an overdose. His mother, who is reportedly his legal guardian, called earlier today saying that he had taken a bottle of aspirin and a bottle of ibuprofen, and some xanax. She sent him to the ED but he was never seen. This evening it is not clear exactly what happened, but EMS and the police were called to his house and ultimately the police told him that he needed to come to the ED or go to assisted. He was initially denying any of this, but now admits to taking three small bottles of something. This happened some time since last night. <William Aranda MD - Last Filed: 12/22/20 19:41> Related Data Home Medications: Home Medications Medication Instructions Recorded Confirmed No Home Medications 08/12/20 08/12/20 <William Aranda MD - Last Filed: 12/22/20 19:41> Allergies/Adverse Reactions: Allergies Allergy/AdvReac Type Severity Reaction Status Date / Time No Known Allergies Allergy Verified 08/12/20 16:13 <William Aranda MD - Last Filed: 12/22/20 19:41> Review of Systems Review of Systems: ROS unobtainable: Yes other (limited due to cooperation) <William Aranda MD - Last Filed: 12/22/20 19:41> Cardiovascular: Cardiovascular: Denies chest pain <William Aranda MD - Last Filed: 12/22/20 19:41> Respiratory: Respiratory: Denies dyspnea <Wililam Aranda MD - Last Filed: 12/22/20 19:41> Psychiatric: Psychiatric: Reports depression <William Aranda MD - Last Filed: 12/22/20 19:41> [facility] Past Medical History Medical History: Medical History Acquired auditory processing disorder Acute encephalopathy Acute kidney failure ADHD Drug overdose Rhabdomyolysis Tobacco dependence <William Aranda MD - Last Filed: 12/22/20 19:41> Family History Family History: Family History Other Unknown family medical history <William Aranda MD - Last Filed: 12/22/20 19:41> Social History Social History: Social History Smoking packs per day: 1 Smoking cigarettes per day: 20.0 Years smoked: 4 Smoking pack-years: 4.00 Smoking status: Current every day smoker Tobacco type: cigarettes Substance use type: marijuana and opiates Gender identity (if verbalized by the patient): Male <William Aranda MD - Last Filed: 12/22/20 19:41> Exam Const: General: no acute distress, alert and confusion <William Aranda MD - Last Filed: 12/22/20 19:41> Nutritional Appearance: well nourished <William Aranda MD - Last Filed: 12/22/20 19:41> HENMT: Mouth: Yes dry mucous membranes <William Aranda MD - Last Filed: 12/22/20 19:41> Eyes: Conjunctivae: conjunctivae normal <William Aranda MD - Last Filed: 12/22/20 19:41> Pupils: Equal, round and reactive pupils present <William Aranda MD - Last Filed: 12/22/20 19:41> EOM: EOMs intact bilaterally <William Aranda MD - Last Filed: 12/22/20 19:41> Neck: Neck: normal visual inspection <William Aranda MD - Last Filed: 12/22/20 19:41> Resp: Effort & Inspection: normal respiratory effort <William Aranda MD - Last Filed: 12/22/20 19:41> Auscultation: clear to auscultation bilaterally <William Aranda MD - Last Filed: 12/22/20 19:41> Cardio: Rate: regular rate <William Aranda MD - Last Filed: 12/22/20 19:41> Rhythm: regular rhythm <William Aranda MD - Last Filed: 12/22/20 19:41> GI: GI Palp: Yes Soft to palpation and
--- NOTE | 2020-12-21 20:20 | PC.NURSE ---
Patient uncooperative and unwilling to stay in room. Patient on phone yelling are the police here, who let them in my house. Patient was able to be redirected back into bed multiple times. EDP Rosi spoke to patient and ordered suicide precautions for patient. Patient reports he has a hx of psychiatric treatment and one previous suicide attempt by overdose. EDP Rosi states the patient will need psychiatric workout done and have Crisis evaluate patient. Patient still denying any thoughts of harming himself and only took the medications to get high. ED charge nurse Ivett states patient's mother is his legal guardian and wants him evaluated, however, she is currently in [place].
[2020-12-21 20:38] VITALS: RESP 20
[2020-12-21 21:04] LABS: Basophils Percent Auto 0.2 % (0.2-1.2); Eosinophils Absolute Auto 0.2 K/mm3 (0-0.3); Eosinophils Percent Auto 1.3 % (0-4.4); Hematocrit 46.7 % (42.0-52.0); Hemoglobin 15.5 g/dL (14.0-18.0); Immature Granulocyte Absolute 0.04 K/mm3 (0.00-0.031); Immature Granulocyte Percent A 0.3 % (0-0.5); Lymphocytes Absolute Auto 2.81 K/mm3 (0.9-3.2); Lymphocytes Percent Auto 23.4 % (18.3-44.2); Mean Corpuscular HGB Conc 33.2 g/dl (32-36); Mean Corpuscular Hemoglobin 28.8 pg (26-34); Mean Corpuscular Volume 86.8 fl (80-100); Monocytes Absolute Auto 1.6 K/mm3 (0.1-0.6); Monocytes Percent Auto 13.3 % (2.6-8.5); Neutrophils Absolute Auto 7.4 K/mm3 (1.3-6.7); Neutrophils Percent Auto 61.5 % (45.5-73.1); Platelet Count Result 244 k/mm3 (150-375); Red Blood Count 5.38 M/mm3 (4.6-6.20); Red Cell Distribution Width 12.8 % (11.5-14.5)
[2020-12-21 21:10] VITALS: PULSE 65; RESP 13
[2020-12-21 21:11] VITALS: BP 111/54; PULSE 65; RESP 20; O2SAT 99
[2020-12-21] MEDS: SODIUM CHLORIDE 0.9% IV 1,000 ML 999 ML IV CONT (21:13)
[2020-12-21 21:14] LABS: INR 1.1; Partial Thromboplastin Time 31.4 SECONDS (22.3-36.8); Prothrombin Time 14.9 Seconds (11.1-14.7)
[2020-12-21 21:15] VITALS: PULSE 58; RESP 20
[2020-12-21 21:18] LABS: Add Urine Microscopic? YES; Appearance Urine Clear (Clear); Bilirubin Urine Negative (Negative); Blood Urine 1+ (Negative); Color Urine Yellow (Yellow); Glucose Urine UA Negative (Negative); Ketones Urine Negative (Negative); Leukocyte Esterase Ur Negative LEU/UL (Negative); Mucus Urine Rare /lpf; Nitrate Urine Negative (Negative); Protein Urine 1+ mg/dL (Negative); RBC Urine 0-2 /hpf (0-2); Specific Grav Ur 1.018 (1.001-1.035); Squamous Epithelial Cell Urine Rare /hpf (Few); Urobilinogen Urine Negative mg/dL (<2.0); WBC Urine 0-3 /hpf
[2020-12-21 21:20] LABS: Alanine Aminotransferase 13 U/L (4-50); Alkaline Phosphatase 102 U/L (38-126); Anion Gap 12 mmol/L (8-16); Aspartate Amino Transferase 23 U/L (17-59); Bilirubin,Total 0.1 mg/dL (0.2-1.3); Blood Urea Nitrogen 11 mg/dL (9-20); Carbon Dioxide 22 mmol/L (22-30); Chloride 108 mmol/L (98-107); Creatine Kinase 81 U/L (55-170); Estimated CRCL calculation 91 ml/min; Estimated Glomerular Filt Rate > 60; Glucose 90 mg/dL (75-110); Sodium 142 mmol/L (137-145)
[2020-12-21 21:31] VITALS: PULSE 62; RESP 18
[2020-12-21 21:37] LABS: Acetaminophen < 10 ug/mL (10-30); Ethanol < 10 mg/dL (<10); Salicylate 8.6 mg/dL (2-20)
[2020-12-21 21:51] LABS: Amphetamine Screen Urine Negative (Negative); Barbiturate Screen Urine Negative (Negative); Benzodiazepines Screen Urine Positive (Negative); Cannabinoid Screen Urine Positive (Negative); Cocaine Screen Urine Negative (Negative); Methadone Screen Urine Negative (Negative); Opiate Screen Urine Negative (Negative); Phencyclidine Screen Urine Negative (Negative)
--- NOTE | 2020-12-21 21:51 | PC.NURSE ---
Spoke to Stephen at poison control regarding patient's presentation and lab work. Stephen states patient should have a repeat salicylate and BMP drawn in for 4 hours to ensure levels are trending in the appropriate direction. ARACELY Aranda notified.
[2020-12-22 01:11] LABS: Salicylate 10.9 mg/dL (2-20)
[2020-12-22 01:12] LABS: Anion Gap 10 mmol/L (8-16); Blood Urea Nitrogen 12 mg/dL (9-20); Calcium 9.3 mg/dL (8.4-10.2); Carbon Dioxide 24 mmol/L (22-30); Chloride 109 mmol/L (98-107); Estimated CRCL calculation 83 ml/min; Estimated Glomerular Filt Rate > 60; Glucose 98 mg/dL (75-110); Potassium 4.1 mmol/L (3.4-5.0); Sodium 143 mmol/L (137-145)
--- NOTE | 2020-12-22 01:20 | PC.NURSE ---
called poison control and they recommend a cmp and salicylate level redrawn at 0400
--- NOTE | 2020-12-22 01:27 | PC.NURSE ---
Toño from [facility] states patient will be sent home on a safety contract. Sitter no longer needed and patient received belongings back. Patient updated that he will have another salicylate lab drawn at 0400 to monitor trend. Patient agreeing with plan of care at this time.
--- NOTE | 2020-12-22 01:34 | PC.NURSE ---
tried to call mother 2 times and it went straight to voicemail.
[2020-12-22] MEDS: NICOTINE (*PBKC) 21 MG PATCH 1 PATCH TRANSDERM (01:54)
[2020-12-22 02:10] VITALS: BP 120/67; PULSE 60; RESP 20; O2SAT 99
[2020-12-22 04:20] LABS: Salicylate 9.5 mg/dL (2-20)
[2020-12-22 04:21] LABS: Alanine Aminotransferase 12 U/L (4-50); Albumin Level 3.7 g/dL (3.5-5.1); Alkaline Phosphatase 85 U/L (38-126); Anion Gap 8 mmol/L (8-16); Aspartate Amino Transferase 19 U/L (17-59); Bilirubin,Total < 0.1 mg/dL (0.2-1.3); Blood Urea Nitrogen 11 mg/dL (9-20); Calcium 9.2 mg/dL (8.4-10.2); Carbon Dioxide 23 mmol/L (22-30); Chloride 110 mmol/L (98-107); Estimated CRCL calculation 91 ml/min; Estimated Glomerular Filt Rate > 60; Glucose 91 mg/dL (75-110); Potassium 4.2 mmol/L (3.4-5.0); Sodium 141 mmol/L (137-145)
[2020-12-22 04:36] VITALS: BP 119/72; PULSE 59; RESP 18; O2SAT 99
[2020-12-22 16:17] LABS: SARS-CoV-2 RNA PCR Negative
== END 2020-12-22 04:42 | disposition home or self-care (01) ==
PROVIDERS: Emergency Medicine; Emergency Provider Emergency Medicine; PCP Family Medicine
DX: T50.902A Poisoning by unspecified drugs, medicaments and biological substances, intentional self-harm, initial encounter (principal); F17.210 Nicotine dependence, cigarettes, uncomplicated; F90.9 Attention-deficit hyperactivity disorder, unspecified type; H93.25 Central auditory processing disorder; G93.40 Encephalopathy, unspecified; Z20.822 Contact with and (suspected) exposure to COVID-19
CPT/HCPCS: 36415; 80048; 80053; 80307; 81001; 82550; 85025; 85610; 85730; 99284; A9270; C9803; J7030; U0003; U0005

== ENCOUNTER 2021-08-23 15:44 | Emergency (ER) | payer MEDICARE, MEDICAID, SELFPAY ==
--- NOTE | ~2021-08-23 | XR_ITS ---
EXAMINATION: XR foot LT min 3V DATE: 08/23/2021 16:16 INDICATION: Left foot pain. Injury. TECHNIQUE: 4 views of left foot were obtained. COMPARISON: None. FINDINGS: Bone alignment is normal. There are small bone fragments dorsal to navicular and distal viviana us. There is mild osteoarthritis of first metatarsophalangeal joint. IMPRESSION: 1. Small bone fragment dorsal to navicular and distal talus, which may be acute avulsion fractures or chronic findings. Reviewed, dictated and finalized at location A. [employer] PRICING CONSULTANT
--- NOTE | ~2021-08-23 | XR_ITS ---
EXAMINATION: XR ankle LT min 3V DATE: 08/23/2021 16:16 INDICATION: Left ankle pain. Fall. TECHNIQUE: 4 views of left ankle were obtained. COMPARISON: None. FINDINGS: Bone alignment is normal. There are small bone fragments dorsal to the navicular and distal talus. Joint spaces are normal. There is ankle soft tissue swelling. IMPRESSION: 1. Small bone fragments dorsal to the navicular and distal talus, which may be acute avulsion fractur e fragments or chronic findings. Reviewed, dictated and finalized at location A. WAY ENGINEER IMPRESSION: 1. Small bone fragments dorsal to the navicular and distal talus, which may be acute avulsion fracture fragments or chronic findings.
[2021-08-23 15:52] VITALS: BP 116/74; PULSE 78; RESP 16; TEMP 36.8; O2SAT 98
[2021-08-23 15:57] VITALS: BP 137/88; PULSE 89; RESP 16; TEMP 36.3; O2SAT 99
--- NOTE | 2021-08-23 16:13 | ED.LOWEXIN ---
HPI - Extremity Injury (Lower) General Chief Complaint: Extremity Injury, Lower Stated Complaint: Left Foot Pain Time Seen by Provider: 08/23/21 16:40 Source: patient, RN notes reviewed and old records reviewed Mode of arrival: ambulatory Limitations: no limitations History of Present Illness HPI Narrative: 21-year-old male presents to the [facility] care with complaints of left ankle and foot pain. States that he was running 2 days ago when he rolled his ankle. Swelling noted to generalized ankle. Bruising noted dorsal aspect of foot. Positive pedal pulse. Sensation intact in all 5 toes. Patient has his own crutches Related Data Home Medications Medication Instructions Recorded Confirmed buprenorphine-naloxone film 08/23/21 bupropion HCl mg PO 08/23/21 cholecalciferol (vitamin D3) 08/23/21 clonidine HCl 08/23/21 hydroxyzine pamoate 08/23/21 quetiapine 08/23/21 quetiapine 08/23/21 Allergies Allergy/AdvReac Type Severity Reaction Status Date / Time No Known Allergies Allergy Verified 08/12/20 16:13 Review of Systems Review of Systems: All systems reviewed & are unremarkable except as noted in HPI and below Constitutional: Constitutional: Reports no additional constitutional complaints Eyes: Eyes: Reports no additional eye complaints ENT: Reports system reviewed and no additional complaints, except as documented Cardiovascular: Cardiovascular: Reports no additional cardiovascular complaints Respiratory: Respiratory: Reports no additional respiratory complaints Gastrointestinal: Gastrointestinal: Reports no additional gastrointestinal complaints Musculoskeletal: Musculoskeletal: Reports as per HPI, Reports arthralgias (Left ankle, dorsal foot) and Reports joint swelling (Left ankle) Integumentary/Breasts: Skin/Breast: Reports system reviewed and no additional complaints, except as docu Neurologic: Reports system reviewed and no additional complaints, except as documented Psychiatric: Psychiatric: Reports no additional psychiatric complaints Allergic/Immunologic: Allergic/Immunologic: Reports no additional allergic/immunologic complaints [facility] Past Medical History Medical History Acquired auditory processing disorder Acute encephalopathy Acute kidney failure ADHD Drug overdose Rhabdomyolysis Tobacco dependence Family History Family History Other Unknown family medical history Social History Social History Smoking packs per day: 1 Smoking cigarettes per day: 20.0 Years smoked: 4 Smoking pack-years: 4.00 Smoking status: Current every day smoker Tobacco type: cigarettes Substance use type: marijuana and opiates Gender identity (if verbalized by the patient): Male Comments At the time of my signature, I reviewed and agree with the nursing past medical, surgical, social, and family history. There is no relevant family history pertinent to the patient complaint. Exam Const: General: healthy appearing, no acute distress and alert Nutritional Appearance: well nourished Orientation/consciousness: patient oriented x3 Limitations: no limitations HENMT: Head: normal to inspection Eyes: Pupils: Equal, round and reactive pupils present Neck: Neck: normal visual inspection, no lymphadenopathy and no meningeal signs Chest: Chest palpation & inspection: normal inspection of the chest Resp: Effort & Inspection: normal respiratory effort Auscultation: clear to auscultation bilaterally Cardio: Rate: regular rate Rhythm: regular rhythm Back/Spine/Pelvis: Back: no CVA tenderness Skin: General skin exam: normal color Rashes: no rashes Wounds: no wounds Neuro: General: patient oriented x3, moves all extremities, no meningeal signs and no focal motor deficits Cranial nerves: Yes Equal, round and reactive pupils pr
[2021-08-23 16:24] VITALS: BP 137/88; PULSE 89; RESP 16; TEMP 36.3; O2SAT 99
== END 2021-08-23 17:30 | disposition home or self-care (01) ==
PROVIDERS: Emergency Provider Nurse Practitioner; PCP Family Medicine
DX: S92.902A Unspecified fracture of left foot, initial encounter for closed fracture (principal); X50.9XXA Other and unspecified overexertion or strenuous movements or postures, initial encounter; F17.210 Nicotine dependence, cigarettes, uncomplicated; M62.82 Rhabdomyolysis
CPT/HCPCS: 29515; 73610; 73630; 99214; G0463

== ENCOUNTER 2021-09-14 19:05 | Emergency (ER) | payer MEDICARE, MEDICAID, SELFPAY ==
[2021-09-14 19:08] VITALS: BP 155/76; PULSE 110; RESP 18; TEMP 36.4; O2SAT 98
--- NOTE | 2021-09-14 19:12 | ECG_ITS ---
Measurements Intervals [place] Rate: 102 P: 60 KS: 125 QRS: 76 QRSD: 114 T: 51 QT: 356 QTc: 464 Interpretive Statements SINUS TACHYCARDIA POSSIBLE LEFT ATRIAL ENLARGEMENT INTRAVENTRICULAR CONDUCTION DELAY BASELINE ARTIFACT- II, III, AVR, AVF, V1, V3-V6 BORDERLINE ECG Electronically Signed On 09-14-2021 20:00:09 STOCK PREPARATION OPERATOR by Gualberto Gonzalez D.O.
[2021-09-14 19:19] VITALS: PULSE 105
--- NOTE | 2021-09-14 20:09 | ED.GENADULT ---
HPI - General Adult General Chief complaint: Unspecified Stated complaint: 2 PILLS OF SEROQUEL MORE THAN PRESCRIBED DOSE Time Seen by Provider: 09/14/21 20:08 Source: patient and family Mode of arrival: EMS Limitations: no limitations History of Present Illness HPI narrative: 21-year-old with a history of heroin addiction and anxiety and depression was brought in by ambulance with possible overdose on Seroquel. Patient mother states that he was in and out of drug rehab several times, he relapsed over the weekend started using heroin the last use was on Sunday and now having withdrawal symptoms in order to counteract her withdrawal symptoms patient states that he took additional 400 mg of Seroquel his daily dose is 400 mg. Mom also states that he has an appointment at [facility] tomorrow morning for Suboxone. Patient presently complains that he is having restlessness but denied any chest pain or shortness of breath. Onset (ago): hour(s) (3) Severity: mild Exacerbating factors: none Associated symptoms: denies other symptoms Related Data Home Medications Medication Instructions Recorded Confirmed buprenorphine-naloxone film 08/23/21 bupropion HCl mg PO 08/23/21 cholecalciferol (vitamin D3) 08/23/21 clonidine HCl 08/23/21 hydroxyzine pamoate 08/23/21 quetiapine 08/23/21 quetiapine 08/23/21 Allergies Allergy/AdvReac Type Severity Reaction Status Date / Time No Known Allergies Allergy Verified 08/12/20 16:13 Review of Systems Review of Systems: All systems reviewed & are unremarkable except as noted in HPI and below Constitutional: Constitutional: Reports no additional constitutional complaints Eyes: Eyes: Reports no additional eye complaints ENT: Reports system reviewed and no additional complaints, except as documented Cardiovascular: Cardiovascular: Reports no additional cardiovascular complaints Respiratory: Respiratory: Reports no additional respiratory complaints Gastrointestinal: Gastrointestinal: Reports no additional gastrointestinal complaints Musculoskeletal: Musculoskeletal: Reports myalgias Neurologic: Reports system reviewed and no additional complaints, except as documented PMFSH Past Medical History Medical History Acquired auditory processing disorder Acute encephalopathy Acute kidney failure ADHD Drug overdose Rhabdomyolysis Tobacco dependence Family History Family History Other Unknown family medical history Social History Social History Smoking packs per day: 1 Smoking cigarettes per day: 20.0 Years smoked: 4 Smoking pack-years: 4.00 Smoking status: Current every day smoker Tobacco type: cigarettes Substance use type: marijuana and opiates Gender identity (if verbalized by the patient): Male Exam Narrative: GENERAL: Well-appearing, well-nourished, drowsy but answers all the questions appropriately. HEAD: Normocephalic, atraumatic. EYES: PERRLA and EOMI. NECK: Supple. CHEST: Clear to auscultation. No respiratory distress. HEART: Regular rate and rhythm. No murmur heard. Normal peripheral pulses. ABDOMEN: Soft, nontender, nondistended, normal active bowel sounds. EXTREMITIES: Normal range of motion. No edema. SKIN: Warm, dry, no rash. NEURO: No focal deficits. Alert and oriented x3. PSYCH: Normal mood and affect. Course Course Emergency Course: Patient comfortably resting on the bed episodes of seizures or restlessness we did contact poison control and observed him for more than 6 hours. Mom feels comfortable taking him home. I discussed lab work and EKG findings with her. Advised her to take him to [facility] as scheduled in the morning. Vital Signs Vital signs: Vital Signs Temperature 36.4 C 09/14/21 19:08 Pulse Rate 110 H 09/14/21 19:08 Respiratory Rate 18 09/14/21 19:08
[2021-09-14] MEDS: SODIUM CHLORIDE 0.9% IV 1,000 ML 999 ML IV CONT (20:34)
[2021-09-14 20:37] VITALS: BP 149/67; PULSE 76; RESP 15; O2SAT 97
[2021-09-14 20:51] LABS: Basophils Percent Auto 0.3 % (0.2-1.2); Eosinophils Absolute Auto 0.1 K/mm3 (0-0.3); Eosinophils Percent Auto 1.4 % (0-4.4); Hematocrit 39.1 % (42.0-52.0); Hemoglobin 12.7 g/dL (14.0-18.0); Immature Granulocyte Absolute 0.04 K/mm3 (0.00-0.031); Immature Granulocyte Percent A 0.4 % (0-0.5); Lymphocytes Absolute Auto 2.14 K/mm3 (0.9-3.2); Lymphocytes Percent Auto 22.9 % (18.3-44.2); Mean Corpuscular HGB Conc 32.5 g/dl (32-36); Mean Corpuscular Hemoglobin 27.3 pg (26-34); Mean Corpuscular Volume 83.9 fl (80-100); Monocytes Absolute Auto 0.7 K/mm3 (0.1-0.6); Monocytes Percent Auto 7.7 % (2.6-8.5); Neutrophils Absolute Auto 6.3 K/mm3 (1.3-6.7); Neutrophils Percent Auto 67.3 % (45.5-73.1); Platelet Count Result 258 k/mm3 (150-375); Red Blood Count 4.66 M/mm3 (4.6-6.20); Red Cell Distribution Width 13.6 % (11.5-14.5); White Blood Count 9.4 K/mm3 (4.5-10.0)
[2021-09-14 20:53] LABS: Add Urine Microscopic? NO; Appearance Urine Clear (Clear); Bilirubin Urine Negative (Negative); Blood Urine Negative (Negative); Color Urine Straw (Yellow); Glucose Urine UA Negative (Negative); Ketones Urine Negative (Negative); Leukocyte Esterase Ur Negative LEU/UL (Negative); Nitrate Urine Negative (Negative); Protein Urine Negative (Negative); Specific Grav Ur 1.006 (1.001-1.035); Urobilinogen Urine Negative mg/dL (<2.0)
[2021-09-14 21:07] LABS: Amphetamine Screen Urine Negative (Negative); Barbiturate Screen Urine Negative (Negative); Benzodiazepines Screen Urine Negative (Negative); Cannabinoid Screen Urine Positive (Negative); Cocaine Screen Urine Negative (Negative); Methadone Screen Urine Negative (Negative); Opiate Screen Urine Negative (Negative); Phencyclidine Screen Urine Negative (Negative)
[2021-09-14 21:12] LABS: Alanine Aminotransferase 17 U/L (4-50); Alkaline Phosphatase 111 U/L (38-126); Anion Gap 9 mmol/L (8-16); Aspartate Amino Transferase 25 U/L (17-59); Bilirubin,Total 0.2 mg/dL (0.2-1.3); Blood Urea Nitrogen 10 mg/dL (9-20); Carbon Dioxide 24 mmol/L (22-30); Chloride 106 mmol/L (98-107); Estimated CRCL calculation 155 ml/min; Estimated Glomerular Filt Rate > 60; Glucose 122 mg/dL (65-110); Potassium 3.5 mmol/L (3.4-5.0); Sodium 139 mmol/L (137-145)
[2021-09-14 21:31] VITALS: BP 156/66; PULSE 78; RESP 18; O2SAT 95
[2021-09-14 21:38] VITALS: RESP 15
--- NOTE | 2021-09-14 21:41 | PC.NURSE ---
Called poison control and discussed case wRadha amador pharmacist, states peak for 800 of Seroquel is 1 1/2 hours after ingestion, with reported time would have been LEATHER CURRIER. Half life is 6 hours. Also notes that 800 is a subtoxic level with toxicity at 1000mg. Discussed pt would be restless, tremors, dizzy, drowsy. Per pt time of ingestion was aprox 1730. No major concerns, continue to monitor and can treat w/ Benzo's if pt is agitated (will not increase sedation effects). P.C. will call for update and is going to fax information provided to this RN.
[2021-09-14 23:05] VITALS: BP 118/72; PULSE 88; RESP 18; O2SAT 98
--- NOTE | 2021-09-15 00:23 | PC.NURSE ---
Poison Control [facility] called at this time asking for update and plan.
[2021-09-15 00:24] VITALS: BP 132/52; PULSE 54; RESP 16; O2SAT 99
== END 2021-09-15 00:34 | disposition home or self-care (01) ==
PROVIDERS: Emergency Provider Family Medicine; PCP Family Medicine
DX: T43.592A Poisoning by other antipsychotics and neuroleptics, intentional self-harm, initial encounter (principal); R00.0 Tachycardia, unspecified
CPT/HCPCS: 36415; 80053; 80307; 81003; 85025; 93005; 96360; 99283; J7030

== ENCOUNTER 2021-10-09 09:13 | Emergency (ER) | payer MEDICARE, MEDICAID, SELFPAY ==
[2021-10-09 09:21] VITALS: BP 163/96; PULSE 66; RESP 16; TEMP 37.3; O2SAT 97
--- NOTE | 2021-10-09 09:37 | ED.GENADULT ---
HPI - General Adult General Chief complaint: Anxiety Stated complaint: anxiety Time Seen by Provider: 10/09/21 09:29 Source: patient, EMS and RN notes reviewed Mode of arrival: EMS Limitations: no limitations History of Present Illness HPI narrative: Patient is 21 years old white male came to the ED by ambulance from home complaining of shaking, restlessness after waking up from sleep this morning. Patient denies any fever, chills, nausea, vomiting, abdominal pain, back pain, chest pain, shortness of breath. Patient been using heroin for the last 1 and half year almost daily, did not use it over the last 2 days. Patient on Suboxone. Patient came to us today because he would like to stop using heroin. Patient denies suicidal or homicidal ideation Related Data Home Medications Medication Instructions Recorded Confirmed buprenorphine-naloxone film 08/23/21 bupropion HCl mg PO 08/23/21 cholecalciferol (vitamin D3) 08/23/21 clonidine HCl 08/23/21 hydroxyzine pamoate 08/23/21 quetiapine 08/23/21 quetiapine 08/23/21 Allergies Allergy/AdvReac Type Severity Reaction Status Date / Time No Known Allergies Allergy Verified 10/09/21 09:25 Review of Systems Review of Systems: CONSTITUTIONAL: Denies fever, chills, or sweats. EYES: Denies visual changes, redness, or discharge. ENT: Denies rhinorrhea, congestion, sore throat, or otalgia. CARDIOVASCULAR: Denies chest pain, palpitations, or edema. RESPIRATORY: Denies cough or dyspnea. GASTROINTESTINAL: Denies abdominal pain, nausea, vomiting, or diarrhea. GENITOURINARY: Denies dysuria or hematuria. SKIN: Denies rash or itching. MUSCULOSKELETAL: Denies back pain, joint pain, or myalgia. NEUROLOGIC: Denies headache, numbness, or weakness. PSYCHIATRIC: Denies anxiety or depression. [facility] Past Medical History Medical History Acquired auditory processing disorder Acute encephalopathy Acute kidney failure ADHD Drug overdose Rhabdomyolysis Tobacco dependence Family History Family History Other Unknown family medical history Social History Social History Smoking packs per day: 1 Smoking cigarettes per day: 20.0 Years smoked: 4 Smoking pack-years: 4.00 Smoking status: Current every day smoker Tobacco type: cigarettes Substance use type: heroin Gender identity (if verbalized by the patient): Male Exam Narrative: General appearance: Well-developed, well-nourished, restlessness. Skin: Normal color Head: Normocephalic, nontraumatic Eyes: Clear conjunctiva ENT: Oropharynx normal, ears normal, nose normal Neck: Supple, nontender Chest and respiratory: Airway patent, no respiratory distress, no accessory muscle use Heart: Regular rate/rhythm Abdomen: Soft, nontender, no organomegaly, quiet bowel sounds Vascular: Normal peripheral pulses, normal capillary refill. Musculoskeletal: Normal range of motion, nontender back Neurologic: Alert and oriented ?3, LAB COORDINATOR is normal as tested, no gross motor deficit Course Course Emergency Course: Patient arrived to the ED with restlessness and anxiety-like symptoms. Resolved after 1 mg of Ativan IV. Vital signs are stable on arrival, patient denies any vomiting or abdominal pain which make the possibility of heroin withdrawal less likely. Anxiety-like symptoms is my concern. Vital Signs Vital signs: Vital Signs Temperature 37.3 C 10/09/21 09:21 Pulse Rate 66 10/09/21 09:21 Respiratory Rate 16 10/09/21 09:21 Blood Pressure 163/96 H 10/09/21 09:21 Pulse Oximetry
[2021-10-09] MEDS: LORazepam INJ (*CRX) 2 MG/ML VIAL 1 MG IV PUSH (09:47)
[2021-10-09 09:52] LABS: Basophils Percent Auto 0.5 % (0.2-1.2); Eosinophils Absolute Auto 0.3 K/mm3 (0-0.3); Eosinophils Percent Auto 4.5 % (0-4.4); Hemoglobin 13.8 g/dL (14.0-18.0); Immature Granulocyte Absolute 0.02 K/mm3 (0.00-0.031); Immature Granulocyte Percent A 0.3 % (0-0.5); Lymphocytes Absolute Auto 2.96 K/mm3 (0.9-3.2); Lymphocytes Percent Auto 40.4 % (18.3-44.2); Mean Corpuscular HGB Conc 32.9 g/dl (32-36); Mean Corpuscular Hemoglobin 27.6 pg (26-34); Mean Platelet Volume 8.6 fl (7.4-10.4); Monocytes Absolute Auto 0.8 K/mm3 (0.1-0.6); Monocytes Percent Auto 10.2 % (2.6-8.5); Neutrophils Absolute Auto 3.2 K/mm3 (1.3-6.7); Neutrophils Percent Auto 44.1 % (45.5-73.1); Platelet Count Result 232 k/mm3 (150-375); Red Cell Distribution Width 13.4 % (11.5-14.5); White Blood Count 7.3 K/mm3 (4.5-10.0)
[2021-10-09 10:01] LABS: Alanine Aminotransferase 25 U/L (4-50); Albumin Level 4.3 g/dL (3.5-5.1); Alkaline Phosphatase 108 U/L (38-126); Anion Gap 8 mmol/L (8-16); Aspartate Amino Transferase 29 U/L (17-59); Bilirubin,Total 0.2 mg/dL (0.2-1.3); Blood Urea Nitrogen 16 mg/dL (9-20); Calcium 9.3 mg/dL (8.4-10.2); Carbon Dioxide 25 mmol/L (22-30); Chloride 105 mmol/L (98-107); Estimated CRCL calculation 168 ml/min; Estimated Glomerular Filt Rate > 60; Glucose 101 mg/dL (65-110); Potassium 4.2 mmol/L (3.4-5.0); Sodium 138 mmol/L (137-145)
[2021-10-09 10:48] VITALS: BP 138/74; PULSE 56; RESP 12; O2SAT 97
[2021-10-09 11:36] LABS: Amphetamine Screen Urine Negative (Negative); Barbiturate Screen Urine Negative (Negative); Benzodiazepines Screen Urine Negative (Negative); Cannabinoid Screen Urine Positive (Negative); Cocaine Screen Urine Negative (Negative); Methadone Screen Urine Negative (Negative); Opiate Screen Urine Negative (Negative); Phencyclidine Screen Urine Negative (Negative)
[2021-10-09 12:16] VITALS: BP 125/79; PULSE 72; RESP 18; O2SAT 97
== END 2021-10-09 12:20 | disposition home or self-care (01) ==
PROVIDERS: Emergency Provider Emergency Medicine; PCP Family Medicine
DX: F41.9 Anxiety disorder, unspecified (principal); F12.90 Cannabis use, unspecified, uncomplicated; F11.90 Opioid use, unspecified, uncomplicated; F90.9 Attention-deficit hyperactivity disorder, unspecified type; H93.25 Central auditory processing disorder; F17.210 Nicotine dependence, cigarettes, uncomplicated; Z79.899 Other long term (current) drug therapy
CPT/HCPCS: 36415; 80053; 80307; 85025; 96374; 99284; J2060

== ENCOUNTER 2021-10-11 14:37 | Emergency (ER) | payer MEDICARE, MEDICAID, SELFPAY ==
[2021-10-11] VITALS (11 sets, daily range): BP systolic 121–154; BP diastolic 67–91; PULSE 42–57; RESP 9–18; TEMP 36.8; O2SAT 97–100
[2021-10-11 15:56] LABS: Basophils Absolute Auto 0.1 K/mm3 (0.0-0.1); Basophils Percent Auto 0.5 % (0.2-1.2); Eosinophils Absolute Auto 0.2 K/mm3 (0-0.3); Eosinophils Percent Auto 1.1 % (0-4.4); Hematocrit 49.1 % (42.0-52.0); Hemoglobin 16.1 g/dL (14.0-18.0); Immature Granulocyte Absolute 0.09 K/mm3 (0.00-0.031); Immature Granulocyte Percent A 0.6 % (0-0.5); Lymphocytes Absolute Auto 2.61 K/mm3 (0.9-3.2); Lymphocytes Percent Auto 17.2 % (18.3-44.2); Mean Corpuscular HGB Conc 32.8 g/dl (32-36); Mean Corpuscular Volume 82.2 fl (80-100); Mean Platelet Volume 8.7 fl (7.4-10.4); Monocytes Percent Auto 6.7 % (2.6-8.5); Neutrophils Absolute Auto 11.3 K/mm3 (1.3-6.7); Neutrophils Percent Auto 73.9 % (45.5-73.1); Platelet Count Result 308 k/mm3 (150-375); Red Blood Count 5.97 M/mm3 (4.6-6.20); Red Cell Distribution Width 13.6 % (11.5-14.5); White Blood Count 15.2 K/mm3 (4.5-10.0)
[2021-10-11 16:08] LABS: Alanine Aminotransferase 27 U/L (4-50); Albumin Level 5.4 g/dL (3.5-5.1); Alkaline Phosphatase 128 U/L (38-126); Anion Gap 13 mmol/L (8-16); Aspartate Amino Transferase 30 U/L (17-59); Bilirubin,Total 0.4 mg/dL (0.2-1.3); Blood Urea Nitrogen 15 mg/dL (9-20); Calcium 10.8 mg/dL (8.4-10.2); Carbon Dioxide 25 mmol/L (22-30); Chloride 100 mmol/L (98-107); Estimated CRCL calculation 146 ml/min; Estimated Glomerular Filt Rate > 60; Glucose 103 mg/dL (65-110); Lipase 26 U/L (23-300); Potassium 4.5 mmol/L (3.4-5.0); Sodium 138 mmol/L (137-145)
[2021-10-11] MEDS: SODIUM CHLORIDE 0.9% IV 1,000 ML 999 ML IV CONT (16:24)
--- NOTE | 2021-10-11 17:34 | ED.GENADULT ---
HPI - General Adult General Chief complaint: Nausea/Vomiting/Diarrhea Stated complaint: fentanyl withdrawal Time Seen by Provider: 10/11/21 15:31 Source: patient and RN notes reviewed Limitations: no limitations History of Present Illness HPI narrative: Patient is 21 years old white male came to the emergency room not feeling well. Patient was taking a shower then started feeling bad followed by vomiting and dry heaves. Patient denies any abdominal pain, headache, chest pain, shortness of breath, injury. Last heroin intake 3 days ago, currently on Suboxone, scheduled for rehab in 2 days. Related Data Home Medications Medication Instructions Recorded Confirmed hydroxyzine pamoate 50 mg PO BID 08/23/21 buprenorphine-naloxone 1 film BUCCAL BID 10/11/21 bupropion HCl [Wellbutrin XL] 150 mg PO QAM 10/11/21 clonidine HCl 0.1 mg PO DAILY 10/11/21 doxycycline monohydrate 100 mg PO BID 10/11/21 quetiapine [Seroquel XR] 400 mg PO HS 10/11/21 Allergies Allergy/AdvReac Type Severity Reaction Status Date / Time No Known Allergies Allergy Verified 10/11/21 15:14 Review of Systems Review of Systems: CONSTITUTIONAL: Denies fever, chills, or sweats. EYES: Denies visual changes, redness, or discharge. ENT: Denies rhinorrhea, congestion, sore throat, or otalgia. CARDIOVASCULAR: Denies chest pain, palpitations, or edema. RESPIRATORY: Denies cough or dyspnea. GASTROINTESTINAL: Denies abdominal pain, nausea, vomiting, or diarrhea. GENITOURINARY: Denies dysuria or hematuria. SKIN: Denies rash or itching. MUSCULOSKELETAL: Denies back pain, joint pain, or myalgia. NEUROLOGIC: Denies headache, numbness, or weakness. PSYCHIATRIC: Denies anxiety or depression. [facility] Past Medical History Medical History Acquired auditory processing disorder Acute encephalopathy Acute kidney failure ADHD Drug overdose Rhabdomyolysis Tobacco dependence Family History Family History Other Unknown family medical history Social History Social History Smoking packs per day: 1 Smoking cigarettes per day: 20.0 Years smoked: 4 Smoking pack-years: 4.00 Smoking status: Current every day smoker Tobacco type: cigarettes Substance use type: heroin Gender identity (if verbalized by the patient): Male Exam Narrative: General appearance: Well-developed, well-nourished Skin: Pale Head: Normocephalic, nontraumatic Eyes: Clear conjunctiva ENT: Oropharynx normal, ears normal, nose normal Neck: Supple, nontender Chest and respiratory: Airway patent, no respiratory distress, no accessory muscle use Heart: Regular rate/rhythm Abdomen: Soft, nontender, no organomegaly, quiet bowel sounds Vascular: Normal peripheral pulses, normal capillary refill. Musculoskeletal: Normal range of motion, nontender back Neurologic: Alert and oriented ?3, TECHNICAL AGRONOMIST is normal as tested, no gross motor deficit Course Course Emergency Course: Stable Patient received 1 mg of Ativan IV, 1 L of normal saline IV and Zofran. Patient scheduled for rehab in 2 days. Vital Signs Vital signs: Vital Signs Temperature 36.8 C 10/11/21 14:58 Pulse Rate 43 L 10/11/21 14:58 Respiratory Rate 12 10/11/21 14:58 Blood Pressure 145/76 H 10/11/21 14:58 Pulse Oxime
[2021-10-11] MEDS: LORazepam INJ (*CRX) 2 MG/ML VIAL 1 MG IV PUSH (18:02)
== END 2021-10-11 18:14 | disposition home or self-care (01) ==
PROVIDERS: Emergency Provider Emergency Medicine; PCP Family Medicine
DX: F11.23 Opioid dependence with withdrawal (principal); F90.9 Attention-deficit hyperactivity disorder, unspecified type; H93.25 Central auditory processing disorder; F17.210 Nicotine dependence, cigarettes, uncomplicated
CPT/HCPCS: 36415; 80053; 83690; 85025; 96361; 96374; 99284; J2060; J7030

== ENCOUNTER 2022-12-06 02:36 | Emergency (ER) | payer MEDICARE, MEDICAID, SELFPAY ==
[2022-12-06 02:37] VITALS: PULSE 53; RESP 18; TEMP 36.7; O2SAT 98
[2022-12-06] MEDS: SODIUM CHLORIDE 0.9% IV 2,000 ML 999 ML IV CONT (03:00)
[2022-12-06] MEDS: ONDANSETRON INJ 4 MG/2 ML VIAL IV PUSH (03:00)
[2022-12-06] MEDS: FAMOTIDINE 20 MG/2 ML VIAL IV PUSH (03:01)
[2022-12-06] MEDS: HALOPERIDOL LACTATE 5 MG/ML VIAL IM (03:02)
[2022-12-06 03:11] LABS: Basophils Percent Auto 0.3 % (0.2-1.2); Eosinophils Percent Auto 0.4 % (0-4.4); Hematocrit 44.2 % (42.0-52.0); Immature Granulocyte Absolute 0.02 K/mm3 (0.00-0.031); Immature Granulocyte Percent A 0.2 % (0-0.5); Lymphocytes Absolute Auto 1.43 K/mm3 (0.9-3.2); Lymphocytes Percent Auto 14.4 % (18.3-44.2); Mean Corpuscular HGB Conc 33.9 g/dl (32-36); Mean Corpuscular Hemoglobin 27.6 pg (26-34); Mean Corpuscular Volume 81.4 fl (80-100); Monocytes Absolute Auto 0.8 K/mm3 (0.1-0.6); Monocytes Percent Auto 8.3 % (2.6-8.5); Neutrophils Absolute Auto 7.6 K/mm3 (1.3-6.7); Neutrophils Percent Auto 76.4 % (45.5-73.1); Platelet Count Result 317 k/mm3 (150-375); Red Blood Count 5.43 M/mm3 (4.6-6.20); Red Cell Distribution Width 13.3 % (11.5-14.5); White Blood Count 9.9 K/mm3 (4.5-10.0)
[2022-12-06 03:24] LABS: Alanine Aminotransferase 48 U/L (6-50); Albumin Level 5.2 g/dL (3.5-5.1); Alkaline Phosphatase 134 U/L (38-126); Anion Gap 13 mmol/L (8-16); Aspartate Amino Transferase 64 U/L (17-59); Bilirubin,Total 1.2 mg/dL (0.2-1.3); Blood Urea Nitrogen 13 mg/dL (9-20); Calcium 10.1 mg/dL (8.4-10.2); Carbon Dioxide 28 mmol/L (22-30); Chloride 95 mmol/L (98-107); Estimated Glomerular Filt Rate > 60; Glucose 119 mg/dL (65-110); Lipase 48 U/L (23-300); Potassium 3.4 mmol/L (3.4-5.0); Sodium 136 mmol/L (137-145)
--- NOTE | 2022-12-06 04:06 | PC.NURSE ---
attempted to call guardian, no answer
--- NOTE | 2022-12-06 04:18 | ED.GENADULT ---
HPI - General Adult General Chief complaint: Nausea/Vomiting/Diarrhea Stated complaint: N/V LIGHTHEADEDNESS Time Seen by Provider: 12/06/22 02:43 History of Present Illness HPI narrative: This is a 22-year-old marijuana user presenting ED with nausea vomiting abdominal pain. Patient says that his abdominal pain started earlier today and is in the epigastric area, sharp nonradiating 10 out 10 intensity and constant. He has never had pain like this before. Has improved with hot showers. There are no exacerbating symptoms. Patient has had multiple episodes of nausea and vomiting at this point is retching loudly. patient uses a large amount of marijuana per day. Patient also uses fentanyl and meth. Related Data Home Medications Medication Instructions Recorded Confirmed hydroxyzine pamoate 25 mg capsule 50 mg PO BID 08/23/21 buprenorphine 8 mg-naloxone 2 mg 1 film buccal BID 10/11/21 sublingual film bupropion HCl 150 mg 24 hr tablet, 150 mg PO QAM 10/11/21 extended release (Wellbutrin XL) clonidine HCl 0.1 mg tablet 0.1 mg PO DAILY 10/11/21 doxycycline monohydrate 100 mg 100 mg PO BID 10/11/21 capsule quetiapine 400 mg tablet,extended 400 mg PO HS 10/11/21 release 24 hr (Seroquel XR) Allergies Allergy/AdvReac Type Severity Reaction Status Date / Time No Known Allergies Allergy Verified 10/11/21 15:14 [facility] Past Medical History Medical History Acquired auditory processing disorder Acute encephalopathy Acute kidney failure ADHD Drug overdose Rhabdomyolysis Tobacco dependence Family History Family History Other Unknown family medical history Social History Social History Smoking packs per day: 1 Smoking cigarettes per day: 20.0 Years smoked: 4 Smoking pack-years: 4.00 Smoking status: Current every day smoker Tobacco type: cigarettes Substance use type: heroin Gender identity (if verbalized by the patient): Male Exam Narrative: APPEARANCE: Patient is rolling back and forth in the bed. He is retching loudly and sticking his finger down his throat. Head: atraumatic. EYES: EOMI, NOSE: Atraumatic NECK: Trachea midline RESPIRATORY: No increased rate of breathing CTAB CARDIOVASCULAR: RRR, ABDOMINAL: Abdomen is soft nontender no guarding or rebound MUSCULOSKELETAl: No obvious deformities NEURO: Alert. Moving 4/4 extremities SKIN:: Warm, dry. Normal color PSYCHIATRIC: Normal affect Course Vital Signs Vital signs: Vital Signs Temperature 98.1 F 12/06/22 02:37 Pulse Rate 53 L 12/06/22 02:37 Respiratory Rate 18 12/06/22 02:37 Pulse Oximetry 98 12/06/22 02:37 Oxygen Delivery Room Air 12/06/22 02:37 Temperature 98.1 F 12/06/22 02:37 Pulse Rate 53 L 12/06/22 02:37 Respiratory Rate 18 12/06/22 02:37 Pulse Oximetry 98 12/06/22 02:37 Oxygen Delivery Room Air 12/06/22 02:37 Medical Decision Making MDM Narrative Medical decision making narrative: -Presentation: 22-year-old male with heavy marijuana use and polysubstance use disorder presenting with nausea and vomiting. -DDX includes but is not limited to: Cyclic vomiting, fentanyl withdrawal, polysubstance use disorder, gastroenteritis -Co-morbidities complicating care: polysubstance use disorder -Social determinants of health: patient cleans luxury cars, lives with his parents -External Chart Review: previous ER notes for her when drawn drug overdose -Hx from independent Sources: none -Discussion of Management/Consultants: none -Independent interpretation of studies: CBC within normal limits. Metabolic panel showed hyponatremia hypochloremia consistent dehydration. Patient given 2 L of fluid. Dx tests considered but not ordered: CT abdomen pelvis -patient has not benign abdominal exam and his
--- NOTE | 2022-12-06 06:33 | PC.NURSE ---
call to guardian, no answer
[2022-12-06 07:49] VITALS: BP 143/66; PULSE 55; RESP 15; O2SAT 100
== END 2022-12-06 08:03 | disposition home or self-care (01) ==
PROVIDERS: Emergency Provider Emergency Medicine; PCP Family Medicine
DX: R11.2 Nausea with vomiting, unspecified (principal); F12.90 Cannabis use, unspecified, uncomplicated; F90.9 Attention-deficit hyperactivity disorder, unspecified type; H93.25 Central auditory processing disorder; F17.210 Nicotine dependence, cigarettes, uncomplicated
CPT/HCPCS: 36415; 80053; 83690; 85025; 96361; 96372; 96374; 96375; 99284; J1630; J2405; J7030

== ENCOUNTER 2023-03-23 12:26 | Emergency (ER) | payer MEDICARE, MEDICAID, SELFPAY ==
[2023-03-23 12:40] VITALS: BP 126/66; PULSE 87; RESP 18; TEMP 36.7; O2SAT 99
--- NOTE | 2023-03-23 12:55 | ED.MALEGU ---
HPI - Male Genitourinary General Chief complaint: Urogenital-Male Stated complaint: std testing Time Seen by Provider: 03/23/23 12:29 Source: patient Mode of arrival: ambulatory Limitations: no limitations History of Present Illness HPI Narrative: Mona is a 22-year-old male patient presenting to the clinic today with complaints of possible STD. He reports that his girlfriend contacting 3 days ago and stated that she had chlamydia and accused him of giving it to her. She denies any urinary symptoms or penile discharge. Denies any painful ejaculation or blood in his semen. Related Data Home Medications Medication Instructions Recorded Confirmed quetiapine 400 mg tablet,extended 400 mg PO HS 10/11/21 release 24 hr (Seroquel XR) aripiprazole 15 mg tablet mg 03/23/23 buprenorphine 8 mg-naloxone 2 mg film 03/23/23 sublingual film (Suboxone) bupropion HCl 300 mg 24 hr tablet, mg PO 03/23/23 extended release hydroxyzine HCl 50 mg tablet mg 03/23/23 mirtazapine 15 mg tablet mg 03/23/23 prazosin 2 mg capsule mg 03/23/23 sertraline 50 mg tablet mg 03/23/23 Allergies Allergy/AdvReac Type Severity Reaction Status Date / Time No Known Allergies Allergy Verified 03/23/23 12:37 Review of Systems Review of Systems: Pertinent positives per HPI. Patient denies any fever, chills, rash, headache, visual changes, dizziness, cough, runny nose, sore throat, shortness of breath, chest pain, palpitations, nausea, vomiting, diarrhea, constipation, abdominal pain, or any urinary issues. [facility] Past Medical History Medical History Acquired auditory processing disorder Acute encephalopathy Acute kidney failure ADHD Drug overdose Rhabdomyolysis Tobacco dependence Family History Family History Other Unknown family medical history Social History Social History Smoking packs per day: 1 Smoking cigarettes per day: 20.0 Years smoked: 4 Smoking pack-years: 4.00 Smoking status: Current every day smoker Tobacco type: cigarettes Substance use type: heroin Gender identity (if verbalized by the patient): Male Comments At the time of my signature, I reviewed and agree with the nursing past medical, surgical, social, and family history. There is no relevant family history pertinent to the patient complaint. Exam Narrative: General: Well-developed, well nourished, in no apparent distress. Head: Normocephalic, atraumatic. Cardio: Regular rate and rhythm, s1 and s2 normal, no murmur appreciated. Resp: Clear to auscultation bilaterally, no rhonchi, rales, wheezing or rubs. Abdomen: Soft, pliable, bowel sounds present in all quadrants, non-tender to palpation, no organomegly, no CVAT tenderness. : Deferred Course Course Emergency Course: Portions of this record may have been created with voice recognition software. Level of Care: Express Care Visit Vital Signs Vital signs: Vital Signs Temperature 36.7 C 03/23/23 12:40 Pulse Rate 87 03/23/23 12:40 Respiratory Rate 18 03/23/23 12:40 Blood Pressure 126/66 03/23/23 12:40 Pulse Oximetry 99 03/23/23 12:40 Oxygen Delivery Room Air 03/23/23 12:40 Temperature 36.7 C 03/23/23 12:40 Pulse Rate 87 03/23/23 12:40 Respiratory Rate 18 03/23/23 12:40 Blood Pressure 126/66 03/23/23 12:40 Pulse Oximetry 99 03/23/23 12:40 Oxygen Delivery Room Air 03/23/23 12:40 Vital signs reviewed MDM - Male Genitourinary MDM Narrative Medical decision making narrative: At the time of visit patient is resting on the exam table. Patient reports that he has had closure to chlamydia. Will give prescription for doxycycline and give him a shot of Rocephin in the clinic today. Supportive measures were discussed with the patient and he v
[2023-03-23] MEDS: cefTRIAXone 500 MG VIAL IM (13:25)
== END 2023-03-23 14:01 | disposition home or self-care (01) ==
PROVIDERS: Emergency Provider Nurse Practitioner Family; PCP Emergency Medicine
DX: Z20.2 Contact with and (suspected) exposure to infections with a predominantly sexual mode of transmission (principal); F17.210 Nicotine dependence, cigarettes, uncomplicated
CPT/HCPCS: 87491; 87591; 87661; 96372; 99213; G0463; J0696

== ENCOUNTER 2023-03-27 12:46 | Emergency (ER) | payer MEDICARE, MEDICAID, SELFPAY ==
--- NOTE | 2023-03-27 12:57 | PC.NURSE ---
1257- I did not see this pt nor do any assessments. He was in triage with tech. Said we called him, we did not call him as all his results are not back. Pt left without being seen nor triaged.
== END 2023-03-27 12:57 | disposition left against medical advice (07) ==
PROVIDERS: PCP Emergency Medicine
DX: Z53.21 Procedure and treatment not carried out due to patient leaving prior to being seen by health care provider (principal)
CPT/HCPCS: 99199

== ENCOUNTER 2024-04-26 18:32 | Emergency (ER) | payer MEDICARE, MEDICAID, SELFPAY ==
--- NOTE | ~2024-04-26 | CT_ITS ---
EXAMINATION: CT lumbar spine wo con DATE: 04/26/2024 22:14 INDICATION: Acute back pain. TECHNIQUE: Computed tomography (CT) of the lumbar spine was performed without intravenous contrast. A utomated exposure control and iterative reconstruction technique were employed. The dose-length produ ct was 1414.21 mGy-cm. COMPARISON: None FINDINGS: Alignment is normal. Vertebral body heights are normal. Intervertebral disc heights are nor mal. The following disc levels are specifically discussed: L1-L2: The disc does not extend beyond the endplate margin. There is mild bilateral facet joint osteo arthritis. There is no neural foraminal stenosis. There is no central canal stenosis. L2-L3: There is a right foraminal protrusion. There is mild bilateral facet joint osteoarthritis. The re is mild right neural foraminal stenosis. There is no central canal stenosis. L3-L4: The disc is bulging. There is mild bilateral facet joint osteoarthritis. There is mild bilater al neural foraminal stenosis. There is mild central canal stenosis. L4-L5: The disc is bulging. There is mild bilateral facet joint osteoarthritis. There is mild bilater al neural foraminal stenosis. There is mild central canal stenosis. L5-S1: The disc is bulging. There is moderate right and mild left facet joint osteoarthritis. There i s mild bilateral neural foraminal stenosis. There is mild central canal stenosis. IMPRESSION: 1. Mild lumbar spondylosis. Reviewed, dictated and finalized at location A. IMPRESSION: 1. Mild lumbar spondylosis.
[2024-04-26 18:35] VITALS: BP 135/83; PULSE 91; RESP 16; TEMP 36.8; O2SAT 98
--- NOTE | 2024-04-26 22:01 | ED.BACK ---
HPI - Back Pain/Injury General Chief Complaint: Back Pain/Injury Stated Complaint: back pain Time Seen by Provider: 04/26/24 21:09 Source: patient Mode of arrival: ambulatory History of Present Illness HPI Narrative: Patient is a 23-year-old male who presents to the ER with acute back pain. He reports the pain started this morning. Patient endorses previous back pain but it has never been this severe and he has never had imaging on it before. He endorses numbness and stabbing pain across his left back. Patient denies any chest pain, shortness of breath, or urinary symptoms. Related Data Home Medications Medication Instructions Recorded Confirmed quetiapine 400 mg tablet,extended 400 mg PO HS 10/11/21 release 24 hr (Seroquel XR) aripiprazole 15 mg tablet mg 03/23/23 buprenorphine 8 mg-naloxone 2 mg film 03/23/23 sublingual film (Suboxone) bupropion HCl 300 mg 24 hr tablet, mg PO 03/23/23 extended release hydroxyzine HCl 50 mg tablet mg 03/23/23 mirtazapine 15 mg tablet mg 03/23/23 prazosin 2 mg capsule mg 03/23/23 sertraline 50 mg tablet mg 03/23/23 Allergies Allergy/AdvReac Type Severity Reaction Status Date / Time No Known Allergies Allergy Verified 03/23/23 12:37 Review of Systems Review of Systems: All systems reviewed & are unremarkable except as noted in HPI and below PMFSH Past Medical History Medical History Acquired auditory processing disorder Acute encephalopathy Acute kidney failure ADHD Drug overdose Rhabdomyolysis Tobacco dependence Family History Family History Other Unknown family medical history Social History Social History Smoking packs per day: 1 Smoking cigarettes per day: 20.0 Years smoked: 4 Smoking pack-years: 4.00 Smoking status: Current every day smoker Tobacco type: cigarettes Substance use type: heroin Gender identity (if verbalized by the patient): Male Exam Narrative: GENERAL: Well appearing, well-nourished, non-toxic, in mild acute distress d/t pain. NECK: Supple. No adenopathy, no masses. RESPIRATORY: Airway patent, respirations nonlabored. Clear to auscultation bilaterally, no rales, rhonchi, wheezing. CARDIOVASCULAR: Regular rate and rhythm without murmurs, rubs, or gallops. Peripheral pulses 2+ and equal bilaterally. ABDOMINAL: Soft, nontender, nondistended, no hepatosplenomegaly. Normoactive BS. MUSCULOSKELETAL: Moves all extremities. Strength/ROM intact without gross deformities. Increased back pain with LLE flexion, extension, abduction, adduction. SKIN: Warm, dry, normal color. No rashes. NEURO: A&O X3. Speech clear. Cranial nerves II-XII grossly intact. No ataxic movements. PSYCHIATRIC: Appropriate mood and affect. Normal interaction. Course Vital Signs Vital signs: Vital Signs Temperature 36.8 C 04/26/24 18:35 Pulse Rate 91 04/26/24 18:35 Respiratory Rate 16 04/26/24 18:35 Blood Pressure 135/83 04/26/24 18:35 Pulse Oximetry 98 04/26/24 18:35 Temperature 36.8 C 04/26/24 18:35 Pulse Rate 88 04/27/24 00:45 Respiratory Rate 18 04/27/24 00:45 Blood Pressure 123/81 04/27/24 00:45 Pulse Oximetry 100 04/27/24 00:45 MDM - Back Pain/Injury MDM Narrative Medical decision making narrative: Patient is a 23-year-old male who presents to the ER with acute back pain. He reports the pain started this morning. Patient endorses previous back pain but it has never been this severe and he has never had imaging on it before. He endorses numbness and stabbing pain across his left back. Patient denies any chest pain, shortness of breath, or urinary symptoms. Will order lumbar CT scan, provide patient with pain medication and steroids, and do a urinalysis to ensure patient does not have a UTI. Jacinta
[2024-04-26] MEDS: KETOROLAC (*BKC) 60 MG/2 ML VIAL IM (22:27)
[2024-04-26] MEDS: methylPREDNISolone SOD SUCC 125 MG VIAL IM (22:27)
[2024-04-26 23:08] LABS: Add Urine Microscopic? NO; Appearance Urine Clear (Clear); Bilirubin Urine Negative (Negative); Blood Urine Negative (Negative); Color Urine Yellow (Yellow); Glucose Urine UA Negative (Negative); Ketones Urine Negative (Negative); Leukocyte Esterase Ur Negative LEU/UL (Negative); Nitrate Urine Negative (Negative); Protein Urine Negative (Negative); Specific Grav Ur 1.023 (1.001-1.035); Urobilinogen Urine 0.2 mg/dL (<2.0); pH Urine 5.5 (5.0-9.0)
[2024-04-27 00:45] VITALS: BP 123/81; PULSE 88; RESP 18; O2SAT 100
== END 2024-04-27 01:47 | disposition home or self-care (01) ==
PROVIDERS: Emergency Provider Registered Nurse; PCP Emergency Medicine
DX: M51.36 Other intervertebral disc degeneration, lumbar region (principal); H93.25 Central auditory processing disorder; F90.9 Attention-deficit hyperactivity disorder, unspecified type; F17.210 Nicotine dependence, cigarettes, uncomplicated; Z79.899 Other long term (current) drug therapy
CPT/HCPCS: 72131; 81003; 96372; 99284; J1885; J2919

== ENCOUNTER 2024-06-15 13:28 | Emergency (ER) | payer MEDICARE, MEDICAID, SELFPAY ==
--- NOTE | ~2024-06-15 | CT_ITS ---
EXAMINATION: CT brain wo con DATE: 06/15/2024 16:05 INDICATION: head injury . TECHNIQUE: Computed tomography (CT) of the head was performed without intravenous contrast. The mA wa s adjusted according to patient size. Iterative reconstruction technique was employed. The dose-lengt h product was 605.33 mGy-cm. COMPARISON: None. FINDINGS: No acute intracranial hemorrhage or extra-axial fluid collection. No hydrocephalus, mass, or herniation. No acute ischemic infarct. Unremarkable dural venous sinus attenuation. No acute osseous abnormality. The aerated spaces are clear. IMPRESSION: No acute intracranial process. Reviewed, dictated and finalized at location K. E SPOOLER
--- NOTE | ~2024-06-15 | XR_ITS ---
EXAM: XR hand RT min 3V DATE: 06/15/2024 15:52 HISTORY: laceration DORSAL HAND . COMPARISON: None available. FINDINGS: Normal mineralization. No fracture or dislocation. No lytic or blastic lesion. Joint space s are maintained. No erosion or periosteal change. Soft tissues within normal limits. IMPRESSION: No acute osseous finding in the right hand. Reviewed, dictated and finalized at location K. THCARE TRANSLATOR
--- NOTE | ~2024-06-15 | XR_ITS ---
EXAM: XR hand RT min 3V DATE: 06/15/2024 14:35 HISTORY: DROPPED A WEIGHT ON HAND, HAND WRAPPED TIGHTLY, LAC 3RD MCP . COMPARISON: None available. FINDINGS: Exam limited by positioning difficulty from overlying bandage material. Normal mineralizati on. No fracture or dislocation. No lytic or blastic lesion. Joint spaces are maintained. No erosion o r periosteal change. Soft tissues within normal limits. IMPRESSION: Exam limited by overlying bandage material. No definite acute osseous finding in the righ t hand. Consider repeat radiographs with bandages removed or when adequate positioning can be obtaine d. Reviewed, dictated and finalized at location K. N ELEVATOR MAN IMPRESSION: Exam limited by overlying bandage material. No definite acute osseo us finding in the right hand. Consider repeat radiographs with bandages removed or when adequate positioning can be obtained.
[2024-06-15 13:28] VITALS: BP 119/67; PULSE 71; RESP 20; TEMP 36.7; O2SAT 98
--- NOTE | 2024-06-15 15:47 | ED.WOUNDLAC ---
HPI - Wound/Laceration General Chief Complaint: Wound/Laceration Stated Complaint: HAND LAC Time Seen by Provider: 06/15/24 14:07 Source: patient Mode of arrival: EMS Limitations: no limitations History of Present Illness HPI narrative: This is a 23-year-old male that presents to the emergency department for laceration to his right hand. Reports he was working out and accidentally dropped a weight on his hand. Reports bleeding and pain to the area. He passed out due to the pain. He did hit his head. Denies neck pain. Denies vision changes, vomiting, numbness, weakness. Related Data Home Medications Medication Instructions Recorded Confirmed quetiapine 400 mg tablet,extended 400 mg PO HS 10/11/21 release 24 hr (Seroquel XR) aripiprazole 15 mg tablet mg 03/23/23 buprenorphine 8 mg-naloxone 2 mg film 03/23/23 sublingual film (Suboxone) bupropion HCl 300 mg 24 hr tablet, mg PO 03/23/23 extended release hydroxyzine HCl 50 mg tablet mg 03/23/23 mirtazapine 15 mg tablet mg 03/23/23 prazosin 2 mg capsule mg 03/23/23 sertraline 50 mg tablet mg 03/23/23 Allergies Allergy/AdvReac Type Severity Reaction Status Date / Time No Known Allergies Allergy Verified 06/15/24 13:35 Review of Systems Review of Systems: CONSTITUTIONAL: Denies fever EYES: Denies visual changes GASTROINTESTINAL: Denies vomiting MUSCULOSKELETAL: Reports joint pain, and myalgia. NEUROLOGIC: Denies numbness, or weakness. All systems reviewed & are unremarkable except as noted in HPI and below PMFSH Past Medical History Medical History Acquired auditory processing disorder Acute encephalopathy Acute kidney failure ADHD Drug overdose Rhabdomyolysis Tobacco dependence Family History Family History Other Unknown family medical history Social History Social History Smoking packs per day: 1 Smoking cigarettes per day: 20.0 Years smoked: 4 Smoking pack-years: 4.00 Smoking status: Current every day smoker Tobacco type: cigarettes Substance use type: heroin Gender identity (if verbalized by the patient): Male Exam Narrative: GENERAL: Well-appearing, well-nourished, and in no acute distress. HEAD: Normocephalic, atraumatic. EYES: PERRLA and EOMI. ENT: Nares clear, no rhinorrhea or epistaxis. Mucous membranes moist. Oropharynx without tonsillar hypertrophy exudate or other lesions. Bilateral TMs pearly robb non-bulging NECK: Supple. No adenopathy or masses CHEST: Clear to auscultation. No respiratory distress. No wheezes rales or rhonchi HEART: Regular rate and rhythm. No murmur heard. Normal peripheral pulses. EXTREMITIES: Normal range of motion. No edema. 2.5cm linear laceration to the right hand dorsal surface at the 3rd MCP joint. Normal radial pulse. Normal sensation SKIN: Warm, dry, no rash. NEURO: No focal deficits. Alert and oriented x3. Cranial nerves 2-12 grossly intact PSYCH: Normal mood and affect Course Course Emergency Course: patient educated on wound care Vital Signs Vital signs: Vital Signs Temperature 98.0 F 06/15/24 13:28 Pulse Rate 71 06/15/24 13:28 Respiratory Rate 20 06/15/24 13:28 Blood Pressure 119/67 06/15/24 13:28 Pulse Oximetry 98 06/15/24 13:28 Oxygen Delivery Room Air 06/15/24 13:28 Temperature 98.0 F 06/15/24 13:28 Pulse Rate 75 06/15/24 16:17 Respiratory Rate 16 06/15/24 16:17 Blood Pressure 114/74 06/15/24 16:17 Pulse Oximetry 99 06/15/24 16:17 Oxygen Delivery Room Air 06/15/24 13:28 Procedures Laceration Laceration 1: Date: 06/15/24 Time: 16:49 Site: hand Side (If applicable): right Size (cm): 2.5 Description: linear Depth: simple, single layer Pre-repair: wound explored and irrigated ====== Skin Level ====== Skin layer closed with: steri strips ====== Subcutaneous Layer ====== ====== Muscle Layer ====== ====== Tendon Layer ====== MDM - Wound/Laceration MDM Narrative Medical decision making narrative: Patient presents to the ER for laceration to the right hand sustained just prior to arrival. he is neurovascularly intact. Right hand x-ray without acute osseous abnormalities. He reports he is up-to-date on tetanus. He refused sutures. His wound was irrigated and closed with Steri-Strips. Patient reporting a syncopal episode pain. Logically intact CT brain without acute findings. He was educated on further wound care. He is to follow up with primary provider. He was given warnings to return to the ER Differential Diagnosis Differential diagnosis: Likely laceration, abrasion and avulsion of skin Imaging Data Radiologist's impression: ITS Impressions Hand X-Ray 06/15/24 14:44 IMPRESSION: Exam limited by overlying bandage material. No definite acute osseous finding in the right hand. Consider repeat radiographs with bandages removed or when adequate positioning can be obtained. Hand X-Ray 06/15/24 16:06 IMPRESSION: No acute osseous finding in the right hand. Head CT 06/15/24 16:09 IMPRESSION: No acute intracranial process. Critical Care Time Critical Care Time Critical Care Time: No Discharge Plan Discharge Clinical Impression: Laceration Head injury Qualifiers: Encounter type: initial encounter Qualified Code(s): S09.90XA - Unspecified injury of head, initial encounter Patient Disposition: Home, Self-Care Condition: Stable Instructions: Laceration (ED), Head Injury (ED) Additional Instructions: Return to the emergency department if you experience fever, redness or swelling of your wound, abnormal drainage from your wound, weakness, numbness, or any other symptoms that are concerning to you. Let water run over the wound in the shower. When the steri strips fall off clean with mild soap and water and apply more Follow-up with your primary care doctor for wound check Prescriptions: No Action hydroxyzine HCl 50 mg tablet mirtazapine 15 mg tablet sertraline 50 mg tablet prazosin 2 mg capsule aripiprazole 15 mg tablet bupropion HCl 300 mg tablet extended release 24 hr PO buprenorphine-naloxone [Suboxone] 8-2 mg film doxycycline hyclate 100 mg capsule 100 mg PO BID 7 Days Qty: 14 0RF quetiapine [Seroquel XR] 400 mg Tablet Extended Release 24 Hr 400 mg PO HS methylprednisolone [Medrol (John)] 4 mg tablets,dose pack See Rx Instructions .ROUTE .COMPLEX Qty: 21 0RF Rx Instructions: for 6 days Follow-up/Referrals: Esau Lopez MD [Primary Care Provider] -
[2024-06-15 16:17] VITALS: BP 114/74; PULSE 75; RESP 16; O2SAT 99
[2024-06-15 16:56] VITALS: BP 110/74; PULSE 80; RESP 17; O2SAT 100
== END 2024-06-15 16:58 | disposition home or self-care (01) ==
PROVIDERS: Emergency Provider Physician Assistant; PCP Emergency Medicine
DX: S61.411A Laceration without foreign body of right hand, initial encounter (principal); S09.90XA Unspecified injury of head, initial encounter; F17.210 Nicotine dependence, cigarettes, uncomplicated; W20.8XXA Other cause of strike by thrown, projected or falling object, initial encounter; W18.39XA Other fall on same level, initial encounter
CPT/HCPCS: 70450; 73130; 99283; 99284; J1885; J2003

== ENCOUNTER 2024-08-07 18:41 | Emergency (ER) | payer MEDICARE, MEDICAID, SELFPAY ==
--- NOTE | ~2024-08-07 | XR_ITS ---
XR knee LT min 4V Ordering provider: Payton Lorenz PA-C History: . left knee pain, injury from hopping fence . Comparison: None. FINDINGS: BONES: No acute fracture or dislocation. JOINT SPACES: Normal. SOFT TISSUES: Normal. IMPRESSION: No acute osseous abnormality left knee. Reviewed, dictated and finalized at location A. LLITE TECHNICIAN
[2024-08-07 19:46] VITALS: BP 159/76; PULSE 82; RESP 20; TEMP 36.8; O2SAT 99
--- NOTE | 2024-08-07 22:54 | ED_ITS ---
HPI - Extremity Injury (Lower) General Chief Complaint: Extremity Injury, Lower Stated Complaint: L KNEE PAIN S/P JUMPING OVER 4FT FENCE. Time Seen by Provider: 08/07/24 20:27 Source: patient Mode of arrival: EMS Limitations: no limitations History of Present Illness HPI Narrative: This is a 24-year-old male that presents to the emergency department after a left knee injury. Reports he was attempting to jump over a fence and landed funny on the leg. Has pain and decreased range of motion since. Denies numbness. Related Data Home Medications ?Medication ?Instructions ?Recorded ?Confirmed ?Last Taken ?Type quetiapine 400 mg tablet,extended 400 mg PO HS 10/11/21 Unknown History release 24 hr (Seroquel XR) aripiprazole 15 mg tablet mg 03/23/23 Unknown History buprenorphine 8 mg-naloxone 2 mg film 03/23/23 Unknown History sublingual film (Suboxone) bupropion HCl 300 mg 24 hr tablet, mg PO 03/23/23 Unknown History extended release hydroxyzine HCl 50 mg tablet mg 03/23/23 Unknown History mirtazapine 15 mg tablet mg 03/23/23 Unknown History prazosin 2 mg capsule mg 03/23/23 Unknown History sertraline 50 mg tablet mg 03/23/23 Unknown History Allergies Allergy/AdvReac Type Severity Reaction Status Date / Time No Known Allergies Allergy Verified 08/07/24 18:42 Review of Systems Review of Systems: CONSTITUTIONAL: Denies fever MUSCULOSKELETAL: Reports joint pain, and myalgia. NEUROLOGIC: Denies numbness, or weakness. All systems reviewed & are unremarkable except as noted in HPI and below PMFSH Past Medical History Medical History Acquired auditory processing disorder Acute encephalopathy Acute kidney failure ADHD Drug overdose Rhabdomyolysis Tobacco dependence Family History Family History Other Unknown family medical history Social History Social History Smoking packs per day: 1 Smoking cigarettes per day: 20.0 Years smoked: 4 Smoking pack-years: 4.00 Smoking status: Current every day smoker Tobacco type: cigarettes Substance use type: heroin Gender identity (if verbalized by the patient): Male Exam Narrative: GENERAL: Well-appearing, well-nourished, and in no acute distress. HEAD: Normocephalic, atraumatic. EYES: EOMI. EXTREMITIES: Normal range of motion. No edema or obvious deformity. Normal DP pulse. Normal sensation. SKIN: Warm, dry, no rash. NEURO: No focal deficits. Alert and oriented x3. PSYCH: Normal mood and affect Course Course Emergency Course: Patient updated on his workup and agrees with plan of care Vital Signs Vital signs: Vital Signs Temperature 98.2 F 08/07/24 19:46 Pulse Rate 82 08/07/24 19:46 Respiratory Rate 20 08/07/24 19:46 Blood Pressure 159/76 H 08/07/24 19:46 Pulse Oximetry 99 08/07/24 19:46 Temperature 98.2 F 08/07/24 19:46 Pulse Rate 82 08/07/24 19:46 Respiratory Rate 20 08/07/24 19:46 Blood Pressure 159/76 H 08/07/24 19:46 Pulse Oximetry 99 08/07/24 19:46 Procedures Orthopedic Splinting/Casting Injury #1: Splinting/Casting Date: 08/07/24 Side: left Lower Extremity Injury Location: knee Lower Extremity Immobilizer: knee immobilizer Splint: prefabricated Pre-Formed: knee immobilizer Pre-Procedure Neuro Vascular Exam: normal Post-Procedure Neuro Vascular Exam: normal Other Orthopedic Equipment: crutches MDM - Extremity Injury (Lower) MDM Narrative Medical decision making narrative: Patient presents the emergency department for left knee pain after injury. Left knee x-ray without acute osseous abnormalities. Patient placed in knee immobilizer given crutches. Will be given follow-up with Orthopedics. He was given warnings to return to the ER Differential Diagnosis Differential diagnosis: Likely acute internal derangement of knee Imaging Data Radiologist's impression: ITS Impressions Knee X-Ray 08/07/24 20:48 IMPRESSION: No acute osseous abnormality left knee. Critical Care Time Critical Care Time Critical Care Time: No Discharge Plan Discharge Clinical Impression: Left knee sprain Qualifiers: Encounter type: initial encounter Involved ligament of knee: unspecified ligament Qualified Code(s): S83.92XA - Sprain of unspecified site of left knee, initial encounter Patient Disposition: Home, Self-Care Condition: Stable Instructions: Knee Sprain (ED) Additional Instructions: Return to the ER if you experience fever, redness and swelling of your extremity, numbness or any other symptoms that are concerning to you Wear knee immobilizer and use crutches. No weight on the affected leg. Ice and elevate extremity. Pain medication as needed and directed. Follow up with orthopedics for further care. Patient Language: Citizen Of [place] Prescriptions: No Action hydroxyzine HCl 50 mg tablet mirtazapine 15 mg tablet sertraline 50 mg tablet prazosin 2 mg capsule aripiprazole 15 mg tablet bupropion HCl 300 mg tablet extended release 24 hr PO buprenorphine-naloxone [Suboxone] 8-2 mg film doxycycline hyclate 100 mg capsule 100 mg PO BID 7 Days Qty: 14 0RF quetiapine [Seroquel XR] 400 mg Tablet Extended Release 24 Hr 400 mg PO HS methylprednisolone [Medrol (John)] 4 mg tablets,dose pack See Rx Instructions .ROUTE .COMPLEX Qty: 21 0RF Rx Instructions: for 6 days Follow-up/Referrals: Gunner Galvan MD [Physician] - Esau Lopez MD [Primary Care Provider] -
[2024-08-07 23:27] VITALS: BP 145/80; PULSE 76; RESP 15; O2SAT 98
== END 2024-08-07 23:30 | disposition home or self-care (01) ==
PROVIDERS: Emergency Provider Physician Assistant; PCP Emergency Medicine
DX: S83.92XA Sprain of unspecified site of left knee, initial encounter (principal); F17.210 Nicotine dependence, cigarettes, uncomplicated; F90.9 Attention-deficit hyperactivity disorder, unspecified type; H93.25 Central auditory processing disorder; Z79.899 Other long term (current) drug therapy; W18.30XA Fall on same level, unspecified, initial encounter
CPT/HCPCS: 73564; 99283

== ENCOUNTER 2024-09-22 12:18 | Emergency (ER) | payer MEDICARE, MEDICAID, SELFPAY ==
[2024-09-22 12:31] VITALS: BP 130/83; PULSE 70; RESP 16; TEMP 37.3; O2SAT 99
--- NOTE | 2024-09-22 12:31 | ED_ITS ---
HPI - Extremity Injury (Lower) General Chief Complaint: Extremity Injury, Lower Stated Complaint: left knee injury Time Seen by Provider: 09/22/24 12:32 Source: patient, RN notes reviewed and old records reviewed Mode of arrival: ambulatory Limitations: no limitations History of Present Illness HPI Narrative: Patient presents with complaints of left knee pain. He reports that he is supposed to have been an MRI either this week or next. He is here today requesting a note stating that he is unable to walk back and forth to his groups at chest not. He is observed ambulating with a steady gait, no obvious disc omfort. He has not taken any medication for his symptoms. He denies any injury or trauma Related Data Home Medications ?Medication ?Instructions ?Recorded ?Confirmed ?Last Taken ?Type quetiapine 400 mg tablet,extended 400 mg PO HS 10/11/21 Unknown History release 24 hr (Seroquel XR) aripiprazole 15 mg tablet mg 03/23/23 Unknown History buprenorphine 8 mg-naloxone 2 mg film 03/23/23 Unknown History sublingual film (Suboxone) bupropion HCl 300 mg 24 hr tablet, mg PO 03/23/23 Unknown History extended release hydroxyzine HCl 50 mg tablet mg 03/23/23 Unknown History mirtazapine 15 mg tablet mg 03/23/23 Unknown History prazosin 2 mg capsule mg 03/23/23 Unknown History sertraline 50 mg tablet mg 03/23/23 Unknown History Allergies Allergy/AdvReac Type Severity Reaction Status Date / Time No Known Allergies Allergy Verified 09/22/24 12:35 Review of Systems Review of Systems: All systems reviewed & are unremarkable except as noted in HPI and below Constitutional: Constitutional: Reports no additional constitutional complaints ENT: Reports system reviewed and no additional complaints, except as documented Cardiovascular: Cardiovascular: Reports no additional cardiovascular complaints Respiratory: Respiratory: Reports no additional respiratory complaints Gastrointestinal: Gastrointestinal: Reports no additional gastrointestinal complaints Musculoskeletal: Musculoskeletal: Reports as per HPI [facility] Past Medical History Medical History Tobacco dependence Acute encephalopathy Acquired auditory processing disorder ADHD Acute kidney failure Rhabdomyolysis Drug overdose Family History Family History Other Unknown family medical history Social History Social History (Reviewed 09/22/24 @ 12:38 by CAESAR Bui Smoking packs per day: 1 Smoking cigarettes per day: 20.0 Years smoked: 4 Smoking pack-years: 4.00 Smoking status: Current every day smoker Tobacco type: cigarettes Substance use type: heroin Gender identity (if verbalized by the patient): Male Comments At the time of my signature, I reviewed and agree with the nursing past medical, surgical, social, and family history. There is no relevant family history pertinent to the patient complaint. Exam Const: General: cooperative, no acute distress, alert and awake Orientation/consciousness: oriented to person, oriented to place and oriented to time HENMT: Head: normal to inspection Resp: Effort & Inspection: normal respiratory effort and able to speak in complete sentences Auscultation: clear to auscultation bilaterally, no crackles, no rales, no rhonchi and no wheezes Cardio: Palpation: normal PMI Rate: regular rate Rhythm: regular rhythm Heart sounds: S1 normal heart sound present and S2 normal heart sound present Neuro: General: oriented to person, oriented to place and oriented to time Cranial nerves: Yes CN's II-XII intact bilaterally Extrem: Left lower extremity: knee Details: normal ROM Psych: Appearance: grossly normal Course Course Level of Care: Express Care Visit Vital Signs Vital signs: Reviewed MDM - Extremity Injury (Lower) MDM Narrative Medical decision making narrative: Patient with nontraumatic left knee pain, ongoing for several months. Requesting a note stating that he is unable to walk on a flat surface in a building, request denied. Patient advised to take [id number] pain relievers. He is agreeable to this plan. Discharge instructions reviewed with patient, as well as provided in writing per nursing staff. The instructions also include specific and strict return/GO TO THE ER as well as f/u information. All questions have been answered, and the patient deny any further questions with discharge and discharge plan. Some parts of this dictation were generated by voice recognition software and may contain typographical and/or grammatical inaccuracies. Differential Diagnosis Differential diagnosis: Likely other (Knee pain, musculoskeletal pain) Medical Records Attestation: I reviewed the patient's medical records. Discharge Plan Discharge Clinical Impression: Musculoskeletal limb pain Patient Disposition: Home, Self-Care Condition: Stable Instructions: Antibiotic Form, Musculoskeletal Pain (ED) Additional Instructions: Use [id number] pain relievers to treat symptoms. Follow package instructions. Follow-up with primary care provider Patient Language: Setswana Prescriptions: No Action hydroxyzine HCl 50 mg tablet mirtazapine 15 mg tablet sertraline 50 mg tablet prazosin 2 mg capsule aripiprazole 15 mg tablet bupropion HCl 300 mg tablet extended release 24 hr PO buprenorphine-naloxone [Suboxone] 8-2 mg film quetiapine [Seroquel XR] 400 mg Tablet Extended Release 24 Hr 400 mg PO HS Follow-up/Referrals: PHYSICIAN,SEAMLESS TUBE ROLLER [Primary Care Provider] - 1 Week Time of Disposition: 12:46
== END 2024-09-22 12:50 | disposition home or self-care (01) ==
PROVIDERS: Emergency Provider Nurse Practitioner Family
DX: M25.562 Pain in left knee (principal); F17.210 Nicotine dependence, cigarettes, uncomplicated; M62.82 Rhabdomyolysis
CPT/HCPCS: 99211; G0463

== ENCOUNTER 2024-10-22 12:34 | Emergency (ER) | payer MEDICARE, MEDICAID, SELFPAY ==
[2024-10-22 12:44] VITALS: BP 138/86; PULSE 109; RESP 20; TEMP 36.3; O2SAT 97
--- NOTE | 2024-10-22 13:03 | ED.DENTAL ---
HPI - Dental/Oral General Chief complaint: Dental/Oral Stated complaint: Dental Pain/Vomiting Time Seen by Provider: 10/22/24 12:56 Source: patient and RN notes reviewed Mode of arrival: ambulatory Limitations: no limitations History of Present Illness HPI Narrative: Patient presents today complaining of left upper and lower tooth pain x2 days. States teeth have been broken for a while. States he does have a dentist but needs to find another 1 that will sedate him for dental work. Denies fever, shortness of breath, difficulty swallowing. Currently rates pain 3/10. Patient also complains of some vomiting from midnight to 6:00 a.m. this morning with residual sore throat. Denies any residual nausea and has been able to keep down fluids since that time. Related Data Home Medications ?Medication ?Instructions ?Recorded ?Confirmed ?Last Taken ?Type quetiapine 400 mg tablet,extended 400 mg PO HS 10/11/21 Unknown History release 24 hr (Seroquel XR) aripiprazole 15 mg tablet mg 03/23/23 Unknown History buprenorphine 8 mg-naloxone 2 mg film 03/23/23 Unknown History sublingual film (Suboxone) bupropion HCl 300 mg 24 hr tablet, mg PO 03/23/23 Unknown History extended release hydroxyzine HCl 50 mg tablet mg 03/23/23 Unknown History prazosin 2 mg capsule mg 03/23/23 Unknown History sertraline 50 mg tablet mg 03/23/23 Unknown History prazosin 1 mg capsule mg 10/22/24 Unknown History Allergies Allergy/AdvReac Type Severity Reaction Status Date / Time No Known Allergies Allergy Verified 10/22/24 12:37 Review of Systems Review of Systems: CONSTITUTIONAL: Denies body aches, fever, chills, or sweats. EYES: Denies visual changes, redness, or discharge. ENT: Denies rhinorrhea, congestion, sore throat, or otalgia.+ dental pain CARDIOVASCULAR: Denies chest pain, palpitations, or edema. RESPIRATORY: Denies cough or dyspnea. GASTROINTESTINAL: Denies abdominal pain, or diarrhea.+ nausea and vomiting GENITOURINARY: Denies dysuria or hematuria. SKIN: Denies rash, itching, or wounds. MUSCULOSKELETAL: Denies back pain, joint pain, or myalgia. NEUROLOGIC: Denies headache, numbness, tingling, or weakness. PSYCH: Denies depression or anxiety. PMFSH Past Medical History Medical History Tobacco dependence Acute encephalopathy Acquired auditory processing disorder ADHD Acute kidney failure Rhabdomyolysis Drug overdose Family History Family History Other Unknown family medical history Social History Social History Smoking packs per day: 1 Smoking cigarettes per day: 20.0 Years smoked: 4 Smoking pack-years: 4.00 Smoking status: Current every day smoker Tobacco type: cigarettes Substance use type: heroin Gender identity (if verbalized by the patient): Male Comments At time of signature, I have reviewed and agree with nursing past medical, surgical, social and family history unless otherwise noted. Please see nursing chart for further information. There is no relevant family history pertinent to the presenting complaint Exam Narrative: GENERAL: Well-appearing, well-nourished, and in no acute distress. HEAD: Normocephalic, atraumatic. EYES: EOMI. No redness or drainage. Conjunctivae normal. ENT: Mucous membranes pink and moist. Nares clear. No rhinorrhea. TMs normal bilaterally. Throat normal. Uvula midline. Gross dental decay. Tooth number 15 and 19 both have very large cavities and much of the teeth have decayed away. No obvious periapical abscesses. No facial swelling. No trismus noted. No sublingual tenderness. NECK: Normal AROM. Supple. No lymphadenopathy. CHEST: No respiratory distress. Clear to auscultation. HEART: Regular rate and rhythm. No murmur appreciated. EXTREMITIES: Normal range of motion. No edema. SKIN: Warm, dry, no rash. Capillary refill normal. Normal skin turgor. NEURO: No focal deficits. Alert and oriented x3. Gait steady. PSYCH: Normal affect. No signs of depression or anxiety. Course Course Level of Care: Express Care Visit Vital Signs Vital signs: Vital Signs Temperature 97.3 F L 10/22/24 12:44 Pulse Rate 109 H 10/22/24 12:44 Respiratory Rate 20 10/22/24 12:44 Blood Pressure 138/86 10/22/24 12:44 Pulse Oximetry 97 10/22/24 12:44 Oxygen Delivery Room Air 10/22/24 12:44 Temperature 97.3 F L 10/22/24 12:44 Pulse Rate 109 H 10/22/24 12:44 Respiratory Rate 20 10/22/24 12:44 Blood Pressure 138/86 10/22/24 12:44 Pulse Oximetry 97 10/22/24 12:44 Oxygen Delivery Room Air 10/22/24 12:44 Reviewed MDM - Dental/Oral MDM Narrative Medical decision making narrative: Patient will be prescribed a course of amoxicillin for presumed dental infection. Has been instructed to search for dentist that does sedation dentistry. His vomiting ended 6-7 hours ago and does not have any residual nausea or GI symptoms. Anticipatory guidance given. ED precautions given. Differential Diagnosis Differential diagnosis: Likely gingival abscess, dental caries, toothache and dental abscess Critical Care Time Critical Care Time Critical Care Time: No Discharge Plan Discharge Clinical Impression: Infected dental caries Patient Disposition: Home, Self-Care Condition: Stable Instructions: Antibiotic Form, Dental Abscess (ED) Additional Instructions: Please take the amoxicillin as prescribed until gone. Follow-up with a dentist as soon as possible for further evaluation and treatment. Go to the ER immediately if you develop fever, facial swelling, difficulty breathing or swallowing. Your blood pressure was elevated above 120/80 today at Urgent Care. This puts you above the threshold for follow up. Please schedule a followup visit with your personal physician as soon as possible, for further evaluation and treatment. Even blood pressure exceeding 120/80 may indicate pre-hypertension. Patient Language: Slovak Prescriptions: New amoxicillin 875 mg tablet 875 mg PO Q12H 10 Days Qty: 20 0RF No Action prazosin 1 mg capsule hydroxyzine HCl 50 mg tablet sertraline 50 mg tablet prazosin 2 mg capsule aripiprazole 15 mg tablet bupropion HCl 300 mg tablet extended release 24 hr PO buprenorphine-naloxone [Suboxone] 8-2 mg film quetiapine [Seroquel XR] 400 mg Tablet Extended Release 24 Hr 400 mg PO HS Follow-up/Referrals: PHYSICIAN,SCIENTIFIC INVESTIGATOR [Primary Care Provider] - Time of Disposition: 13:09
== END 2024-10-22 13:15 | disposition home or self-care (01) ==
PROVIDERS: Emergency Provider Nurse Practitioner
DX: K02.9 Dental caries, unspecified (principal); F17.210 Nicotine dependence, cigarettes, uncomplicated; F11.90 Opioid use, unspecified, uncomplicated
CPT/HCPCS: 99213; G0463

== ENCOUNTER 2024-12-24 13:37 | Emergency (ER) | payer MEDICARE, MEDICAID, SELFPAY ==
[2024-12-24 13:51] VITALS: BP 133/79; PULSE 86; RESP 18; TEMP 36.7; O2SAT 98
--- NOTE | 2024-12-24 14:06 | ED.SOB ---
HPI - SOB/Dyspnea General Chief Complaint: Upper Respiratory Infection Stated Complaint: SOB Time Seen by Provider: 12/24/24 13:50 Source: patient and RN notes reviewed Mode of arrival: ambulatory Limitations: no limitations History of Present Illness HPI Narrative: 24-year-old male presents to the [facility] complaining of shortness of breath when vaping for the last 2 years. Patient states he feels short of breath after he uses vape. Patient reports he has been vaping for the last 8 years pretty frequently. Patient denies any shortness of breath with exertion shortness of breath at rest. Patient denies any chest pain, orthopnea, fevers, body aches, chills, upper respiratory symptoms, cough, or any other complaints. Patient is not a primary care provider has not been evaluated for his symptoms. Patient denies any significant past medical history. Patient denies any recent surgeries or any history of blood clots. Related Data Home Medications ?Medication ?Instructions ?Recorded ?Confirmed ?Last Taken ?Type quetiapine 400 mg tablet,extended 400 mg PO HS 10/11/21 Unknown History release 24 hr (Seroquel XR) aripiprazole 15 mg tablet mg 03/23/23 Unknown History buprenorphine 8 mg-naloxone 2 mg film 03/23/23 Unknown History sublingual film (Suboxone) bupropion HCl 300 mg 24 hr tablet, mg PO 03/23/23 Unknown History extended release hydroxyzine HCl 50 mg tablet mg 03/23/23 Unknown History prazosin 2 mg capsule mg 03/23/23 Unknown History sertraline 50 mg tablet mg 03/23/23 Unknown History prazosin 1 mg capsule mg 10/22/24 Unknown History Allergies Allergy/AdvReac Type Severity Reaction Status Date / Time No Known Allergies Allergy Verified 12/24/24 13:50 Review of Systems Review of Systems: CONSTITUTIONAL: Denies fever, chills, body aches, or sweats. EYES: Denies visual changes, redness, or discharge. ENT: Denies rhinorrhea, congestion, sore throat, or otalgia. CARDIOVASCULAR: Denies chest pain, palpitations, syncope, lightheadedness or edema. RESPIRATORY: Denies cough denies dyspnea at rest, dyspnea with exertion, orthopnea. Positive for dyspnea when vaping GASTROINTESTINAL: Denies abdominal pain, nausea, vomiting, or diarrhea. GENITOURINARY: Denies dysuria or hematuria. SKIN: Denies rash or itching. MUSCULOSKELETAL: Denies back pain, joint pain, or myalgia. NEUROLOGIC: Denies headache, numbness, or weakness. PSYCHIATRIC: Denies anxiety or depression. All other systems reviewed are negative, except as documented in HPI. [facility] Past Medical History Medical History Tobacco dependence Acute encephalopathy Acquired auditory processing disorder ADHD Acute kidney failure Rhabdomyolysis Drug overdose Family History Family History Other Unknown family medical history Social History Social History Smoking packs per day: 1 Smoking cigarettes per day: 20.0 Years smoked: 4 Smoking pack-years: 4.00 Smoking status: Current every day smoker Tobacco type: cigarettes Substance use type: heroin Gender identity (if verbalized by the patient): Male Comments At the time of my signature, I reviewed and agree with the nursing past medical, surgical, social, and family history. There is no relevant family history pertinent to the patient complaint. Exam Narrative: GENERAL: This is a well-nourished, well-developed adult, in no apparent distress. They are non ill-appearing, nontoxic appearing. Patient is sitting in the room playing a video game on his cellphone during exam. HEAD: normocephalic, atraumatic. EYES: Sclera clear/white. Conjunctiva normal. Vision is grossly intact. Extraocular movements intact EARS: External ears normal, auditory canals clear and without drainage, TMs normal without perforation. Hearing grossly intact. NOSE: External nose normal with no obvious nasal discharge, nasal turbinates without redness, no rhinorrhea. THROAT: Mucous membranes moist, posterior pharynx clear, without erythema or swelling. Uvula midline. NECK: Neck supple, non-tender without lymphadenopathy, masses or thyromegaly. CARDIOVASCULAR: Regular rate and rhythm without murmurs, clicks, gallops, or rubs. Normal S1 and S2. RESPIRATORY: Clear to auscultation. Breath sounds equal bilaterally. No wheezes, rales, or rhonchi. Respiratory rate normal, respiratory effort nonlabored, no respiratory distress, no accessory muscle use, no retractions. Patient is able to speak in full sentences. SKIN: warm, Dry, intact with no suspicious lesions or rash, good texture and turgor. NEURO: awake, alert, and oriented to person, place and time. There were no obvious focal neurologic abnormalities. EXTREMITIES: No joint tenderness, effusion, or edema noted. BACK: Nontender without deformity. Course Course Emergency Course: Portions of this record may have been created with voice recognition software Level of Care: Express Care Visit Vital Signs Vital signs: Vital Signs Temperature 98.0 F 12/24/24 13:51 Pulse Rate 86 12/24/24 13:51 Respiratory Rate 18 12/24/24 13:51 Blood Pressure 133/79 12/24/24 13:51 Pulse Oximetry 98 12/24/24 13:51 Oxygen Delivery Room Air 12/24/24 13:51 Temperature 98.0 F 12/24/24 13:51 Pulse Rate 86 12/24/24 13:51 Respiratory Rate 18 12/24/24 13:51 Blood Pressure 133/79 12/24/24 13:51 Pulse Oximetry 98 12/24/24 13:51 Oxygen Delivery Room Air 12/24/24 13:51 Reviewed MDM - SOB/Dyspnea MDM Narrative Medical decision making narrative: Wells score of 0, no concern for blood clots. Patient's issues chronic in nature and persistent over last 2 years related to vaping. Patient has been vaping for at least 8 years. No concerns on physical exam. Lung sounds are clear to auscultation and patient is in no apparent respiratory distress. Symptoms are likely from prolonged vaping use. Today this [facility] does not have x-ray capabilities. Offered patient a transfer to another [facility] to obtain imaging he has declined to get that performed. Will go ahead and prescribe patient a short course of prednisone and albuterol inhaler to see if symptoms improve. Recommend patient to follow-up with PCP and possibly see a roller shop supervisor for a lung function test and further evaluation and management. Discussed physical exam findings. Advised supportive measures and signs/symptoms to go to the ER. Pt is appropriate for outpt treatment and f/u. Differential Diagnosis Differential diagnosis: Likely other (Chronic Bronchitis, asthma, vaping injury) Critical Care Time Critical Care Time Critical Care Time: No Discharge Plan Discharge Clinical Impression: Vaping nicotine dependence, tobacco product, Shortness of breath Patient Disposition: Home Condition: Stable Instructions: How to Stop Smoking (ED), EVALI (E-cigarette or Vaping-Associated Lung Injury) (ED) Additional Instructions: Take the prednisone as directed. Take it and the morning and with food. Use the albuterol inhaler as needed for shortness of breath or wheezing. Please follow-up with your primary care provider in 3-5 days further evaluation management review shortness of breath. Is likely related to long-term use of vaping. I recommend you stop using tobacco/nicotine products or vaping to help prevent worsening issues. You may need to see a pulmonology in have lung function test performed. If his symptoms worsen, you developed worsening shortness of breath, you cannot speak in full sentences, audible wheezing, chest pain, fevers, or any other concerns please go to the ER immediately. Patient Language: [place] Verdean Prescriptions: New prednisone 20 mg tablet 40 mg PO DAILY 5 Days Qty: 10 0RF albuterol sulfate [Ventolin HFA] 90 mcg/actuation HFA aerosol inhaler 2 puff inhalation QID PRN (Reason: shortness of breath or wheezing) Qty: 8.5 0RF No Action prazosin 1 mg capsule hydroxyzine HCl 50 mg tablet sertraline 50 mg tablet prazosin 2 mg capsule aripiprazole 15 mg tablet bupropion HCl 300 mg tablet extended release 24 hr PO buprenorphine-naloxone [Suboxone] 8-2 mg film quetiapine [Seroquel XR] 400 mg Tablet Extended Release 24 Hr 400 mg PO HS Follow-up/Referrals: Shilpa Brewer DO [Physician] - Catracho Gonzalez MD [Physician] - Stand Alone Forms: Work/School Release IP Time of Disposition: 14:03
== END 2024-12-24 14:10 | disposition home or self-care (01) ==
DX: R06.02 Shortness of breath (principal); F17.290 Nicotine dependence, other tobacco product, uncomplicated
CPT/HCPCS: 99213; G0463

== ENCOUNTER 2025-01-14 19:21 | Emergency (ER) | payer MEDICARE, MEDICAID, SELFPAY ==
[2025-01-14 19:29] VITALS: BP 126/81; PULSE 93; RESP 20; TEMP 36.1; O2SAT 99
--- NOTE | 2025-01-14 19:52 | ED_ITS ---
HPI - Back Pain/Injury General Chief Complaint: Back Pain/Injury Stated Complaint: Back Pain Time Seen by Provider: 01/14/25 19:38 Source: patient and RN notes reviewed Mode of arrival: ambulatory Limitations: no limitations History of Present Illness HPI Narrative: Patient presents today complaining of left-sided low back pain x2 weeks. States he woke up from sleep with the pain. Reports radiation down the left leg occasionally. Denies numbness or tingling in the legs or genitalia. Denies loss of bowel or bladder control. Currently rates his pain 5/10 which increases with bending and twisting. He takes Suboxone, which does help with his pain somewhat. He is also complaining of nausea, vomiting, diarrhea for the past 2 days. Last vomiting episode was this morning and he has been able to keep down fluids since that time. Reports diarrhea twice daily for the past 2 days. Denies blood or mucus in the stool. Reports some cramping prior to bowel movement, but no additional abdominal pain. Voiding normally. Patient drinking coffee prior to exam. Related Data Home Medications ?Medication ?Instructions ?Recorded ?Confirmed ?Last Taken ?Type aripiprazole 15 mg tablet mg 03/23/23 Unknown History buprenorphine 8 mg-naloxone 2 mg film 03/23/23 Unknown History sublingual film (Suboxone) bupropion HCl 300 mg 24 hr tablet, mg PO 03/23/23 Unknown History extended release hydroxyzine HCl 50 mg tablet mg 03/23/23 Unknown History Allergies Allergy/AdvReac Type Severity Reaction Status Date / Time No Known Allergies Allergy Verified 01/14/25 19:26 Review of Systems Review of Systems: CONSTITUTIONAL: Denies body aches, fever, chills, or sweats. EYES: Denies visual changes, redness, or discharge. ENT: Denies rhinorrhea, congestion, sore throat, or otalgia. CARDIOVASCULAR: Denies chest pain, palpitations, or edema. RESPIRATORY: Denies cough or dyspnea. GASTROINTESTINAL: Denies abdominal pain. + nausea, vomiting, diarrhea GENITOURINARY: Denies dysuria or hematuria. SKIN: Denies rash, itching, or wounds. MUSCULOSKELETAL: Denies joint pain, or myalgia.+ back pain NEUROLOGIC: Denies headache, numbness, tingling, or weakness. PSYCH: Denies depression or anxiety. [facility] Past Medical History Medical History Tobacco dependence Acute encephalopathy Acquired auditory processing disorder ADHD Acute kidney failure Rhabdomyolysis Drug overdose Family History Family History (Reviewed 01/14/25 @ 19:54 by Elena Peñaloza, [facility], ) Other Unknown family medical history Social History Social History (Reviewed 01/14/25 @ 19:54 by Elena Peñaloza, [facility], ) Smoking packs per day: 1 Smoking cigarettes per day: 20.0 Years smoked: 4 Smoking pack-years: 4.00 Smoking status: Current every day smoker Tobacco type: cigarettes Substance use type: heroin Gender identity (if verbalized by the patient): Male Comments At time of signature, I have reviewed and agree with nursing past medical, surgical, social and family history unless otherwise noted. Please see nursing chart for further information. There is no relevant family history pertinent to the presenting complaint Exam Narrative: GENERAL: Well-appearing, well-nourished, and in no acute distress. HEAD: Normocephalic, atraumatic. EYES: EOMI. No redness or drainage. Conjunctivae normal. ENT: Mucous membranes pink and moist. NECK: Normal AROM. Supple. No lymphadenopathy. CHEST: No respiratory distress. Clear to auscultation. HEART: Regular rate and rhythm. No murmur appreciated. Normal peripheral pulses. ABDOMEN: Soft, nontender, nondistended, normal active bowel sounds. MUSCULOSKELETAL: No bony tenderness of the spine. Left lumbar paraspinal muscle tenderness that does not extend to the SI joint. Distal sensation intact bilaterally. Saddle sensation intact. 5/5 strength in BLE EXTREMITIES: Normal range of motion. No edema. SKIN: Warm, dry, no rash. Capillary refill normal. Normal skin turgor. NEURO: No focal deficits. Alert and oriented x3. Gait steady. PSYCH: Normal affect. No signs of depression or anxiety. Course Course Level of Care: Express Care Visit Vital Signs Vital signs: Vital Signs Temperature 97.0 F L 01/14/25 19:29 Pulse Rate 93 01/14/25 19:29 Respiratory Rate 20 01/14/25 19:29 Blood Pressure 126/81 01/14/25 19:29 Pulse Oximetry 99 01/14/25 19:29 Oxygen Delivery Room Air 01/14/25 19:29 Temperature 97.0 F L 01/14/25 19:29 Pulse Rate 93 01/14/25 19:29 Respiratory Rate 20 01/14/25 19:29 Blood Pressure 126/81 01/14/25 19:29 Pulse Oximetry 99 01/14/25 19:29 Oxygen Delivery Room Air 01/14/25 19:29 Reviewed MDM - Back Pain/Injury MDM Narrative Medical decision making narrative: Patient will be treated with Flexeril and a Medrol Dosepak for his back pain as well as Zofran for his nausea and vomiting. Diarrhea is likely self-limiting. ED precautions given. Anticipatory guidance given. Differential Diagnosis Differential diagnosis: Likely lumbar radiculopathy, sciatica, strain of lumbar region and other (Viral syndrome, gastroenteritis) Critical Care Time Critical Care Time Critical Care Time: No Discharge Plan Discharge Clinical Impression: Nausea vomiting and diarrhea Low back strain Qualifiers: Encounter type: initial encounter Qualified Code(s): S39.012A - Strain of muscle, fascia and tendon of lower back, initial encounter Patient Disposition: Home Condition: Stable Instructions: Low Back Strain (ED), Acute Nausea and Vomiting (DC), Acute Diarrhea (ED) Additional Instructions: Please take the Flexeril and Medrol as directed. Do not drive within 8 hours of taking the Flexeril as it can make you drowsy. Start the Medrol Dosepak in the morning. Take the Zofran as prescribed for your nausea and vomiting. Stay way from irritating foods such as acidic foods, fried foods, caffeine. If your unable to keep down fluids even with the medication, please go to the ER immediately for further evaluation. No heavy lifting, jumping, twisting, squatting until your back is feeling better, then advance your activity as tolerated. If you develop numbness or tingling in your genitalia or loss of bowel or bladder control, please go to the ER for further evaluation. Follow-up with your PCP in 3-4 days if symptoms are not improving. Your blood pressure was elevated above 120/80 today at Urgent Care. This puts you above the threshold for follow up. Please schedule a followup visit with your personal physician as soon as possible, for further evaluation and treatment. Even blood pressure exceeding 120/80 may indicate pre-hypertension. Patient Language: Brazilian Prescriptions: New cyclobenzaprine 10 mg tablet 10 mg PO TID PRN (Reason: muscle spasm) Qty: 15 0RF methylprednisolone [Medrol (John)] 4 mg tablets,dose pack See Rx Instructions .ROUTE .COMPLEX Qty: 21 0RF Rx Instructions: orally per package directions ondansetron 4 mg tablet,disintegrating 4 mg PO TID PRN (Reason: nausea and vomiting) Qty: 10 0RF No Action prazosin 1 mg capsule hydroxyzine HCl 50 mg tablet sertraline 50 mg tablet prazosin 2 mg capsule aripiprazole 15 mg tablet bupropion HCl 300 mg tablet extended release 24 hr PO buprenorphine-naloxone [Suboxone] 8-2 mg film prednisone 20 mg tablet 40 mg PO DAILY 5 Days Qty: 10 0RF albuterol sulfate [Ventolin HFA] 90 mcg/actuation HFA aerosol inhaler 2 puff inhalation QID PRN (Reason: shortness of breath or wheezing) Qty: 8.5 0RF quetiapine [Seroquel XR] 400 mg Tablet Extended Release 24 Hr 400 mg PO HS Follow-up/Referrals: PHYSICIAN,SNUFF BLENDER [Primary Care Provider] - Stand Alone Forms: Work/School Release IP Time of Disposition: 19:51
== END 2025-01-14 20:00 | disposition home or self-care (01) ==
PROVIDERS: Emergency Provider Nurse Practitioner
DX: R11.2 Nausea with vomiting, unspecified (principal); R19.7 Diarrhea, unspecified; S39.012A Strain of muscle, fascia and tendon of lower back, initial encounter; X58.XXXA Exposure to other specified factors, initial encounter; F17.210 Nicotine dependence, cigarettes, uncomplicated
CPT/HCPCS: 99213; G0463